=== PATIENT | female | born 1975 | race Caucasian/White ===

== ENCOUNTER 2016-12-25 08:37 | Emergency (ER) | payer MEDICAID ==
[~2016-12-25] VITALS: Ht 167.6 cm; Wt 80.9 kg
[~2016-12-25 08:37] MED LIST: HYDR-3240 PO; HYDR200T PO
[2016-12-25 08:38] VITALS: BP 121/79
[2016-12-25] MEDS ORDERED: HYDROmorphone 1 MG/ML, 1ML IM ONE (09:00)
[2016-12-25] MEDS ORDERED: KETOROLAC 30 MG/1 ML IM ONE (09:00)
[2016-12-25] MEDS ORDERED: DIAZEPAM 5 MG TABLET PO ONE (09:00)
[2016-12-25] MEDS ORDERED: HYDROmorphone 1 MG/ML, 1ML ONE (09:05)
[2016-12-25] MEDS ORDERED: DIAZEPAM 5 MG TABLET ONE (09:05)
[2016-12-25] MEDS ORDERED: KETOROLAC 30 MG/1 ML ONE (09:05)
[2016-12-25] MEDS ORDERED: ALBU0.63 NEB (09:26)
[2016-12-25] MEDS ORDERED: ROPI1TAB PO (09:26)
== END 2016-12-25 10:49 | disposition home or self-care (01) ==
LOC: ED 10:16
DX: M54.16 Radiculopathy, lumbar region (principal); M54.41 Lumbago with sciatica, right side; M06.9 Rheumatoid arthritis, unspecified; Z88.0 Allergy status to penicillin
CPT/HCPCS: 81003; 96372; 99284; J1170; J1885

== ENCOUNTER 2017-01-09 09:05 | Emergency (ER) | payer MEDICAID ==
[~2017-01-09] VITALS: Ht 167.6 cm; Wt 72.4 kg
[~2017-01-09 09:05] MED LIST changes: +ALBU0.63 NEB; +ROPI1TAB PO
[2017-01-09 09:06] VITALS: BP 114/73
[2017-01-09] MEDS ORDERED: KETOROLAC 30 MG/1 ML IM ONE (09:30)
[2017-01-09] MEDS ORDERED: METHOCARBAMOL 750 MG TABLET PO ONE (09:30)
[2017-01-09] MEDS ORDERED: METHOCARBAMOL 750 MG TABLET ONE (09:39)
[2017-01-09] MEDS ORDERED: KETOROLAC 30 MG/1 ML ONE (09:39)
== END 2017-01-09 10:00 | disposition home or self-care (01) ==
LOC: ED 09:45
DX: S51.812D Laceration without foreign body of left forearm, subsequent encounter (principal); Z48.02 Encounter for removal of sutures; Z88.0 Allergy status to penicillin; M54.41 Lumbago with sciatica, right side; M54.16 Radiculopathy, lumbar region; X58.XXXD Exposure to other specified factors, subsequent encounter; Y93.89 Activity, other specified; Y99.8 Other external cause status; Y92.89 Other specified places as the place of occurrence of the external cause
CPT/HCPCS: 96372; 99283; J1885

== ENCOUNTER 2017-05-08 08:24 | Inpatient (IN) | payer MEDICAID ==
[~2017-05-08] VITALS: Ht 167.6 cm; Wt 81.0 kg
[~2017-05-08 08:24] MED LIST changes: +CARI350T PO; +CARI350T14 PO; +CEFT600V IV; +GABA300C10 PO; +MAGN400O7 PO; +OMEP-110 PO; +ONDA4TAB12 PO; +OXYC1TAB9 PO; +OXYC5TAB3 PO; +POLY17PO5 PO; +TRAM50TA2 PO; +metronidazole IV
[2017-05-08] MEDS ORDERED: LORazepam 2 MG/ML, 1ML IM PRN (10:00)
[2017-05-08] MEDS ORDERED: LORazepam 2 MG/ML, 1ML ONE (10:00)
[2017-05-08] MEDS ORDERED: CEFTRIAXONE PMX 1GM/50ML 50 ML ONE (11:24)
[2017-05-08] MEDS ORDERED: ONDANSETRON 2MG/ML, 2ML ONE (11:24)
[2017-05-08] MEDS ORDERED: HYDROmorphone 1 MG/ML, 1ML ONE (11:24)
[2017-05-08] MEDS ORDERED: VANCOMYCIN 1,600 MG in SODIUM CHLORIDE 0.9% 250 ML IV ONE (11:30)
[2017-05-08] MEDS ORDERED: VANCOMYCIN 1,500 MG in SODIUM CHLORIDE 0.9% 250 ML IV ONE (11:30)
[2017-05-08] MEDS ORDERED: CEFTRIAXONE PMX 1GM/50ML 50 ML IV ONE (11:30)
[2017-05-08] MEDS ORDERED: SODIUM CHLORIDE FLUSH 10ML SYR IVF ONE (11:30)
[2017-05-08] MEDS ORDERED: HYDROmorphone 1 MG/ML, 1ML IVPush PRN (11:30)
[2017-05-08] MEDS ORDERED: SODIUM CHLORIDE 0.9% 1,000ML IVBOLUS ONE (11:30)
[2017-05-08] MEDS ORDERED: VANCOMYCIN PER PHARMACY MC ONE (11:30)
[2017-05-08] MEDS ORDERED: ONDANSETRON 2MG/ML, 2ML IVPush ONE (11:30)
[2017-05-08 11:34] LABS: HEMATOCRIT 39.6 % (34.6-47.8); WHITE BLOOD COUNT 5.4 x10^3/uL (3.4-10)
[2017-05-08 11:44] LABS: ASPARTATE AMINO TRANSFERASE 28 U/L (15-37); BLOOD UREA NITROGEN 11 mg/dL (7-18)
[2017-05-08 13:16] VITALS: BP 131/92
[2017-05-08] MEDS ORDERED: SODIUM CHLORIDE 0.9% 1,000 ML IV SCH (13:51)
[2017-05-08] MEDS ORDERED: LORazepam 2 MG/ML, 1ML IVPush PRN (14:00)
[2017-05-08] MEDS ORDERED: morphine SULFATE 10 MG/ML, 1ML IVPush PRN (14:00)
[2017-05-08] MEDS ORDERED: VANCOMYCIN PER PHARMACY MC PRN (14:30)
[2017-05-08] MEDS ORDERED: CEFTAROLINE 600 MG in SODIUM CHLORIDE 0.9% 100 ML IV SCH (14:30)
[2017-05-08 15:09] LABS: DAU SCREEN DISCLAIMER
[2017-05-08] MEDS ORDERED: PHARMACOKINETIC MONITORING MC PRN (15:30)
[2017-05-08] MEDS ORDERED: PHARMACOKINETIC CONSULTATION MC ONE (15:30)
[2017-05-08] MEDS ORDERED: VANCOMYCIN 1,600 MG in SODIUM CHLORIDE 0.9% 250 ML IV SCH ×2 (15:30→23:00)
[2017-05-08] MEDS ORDERED: CEFTRIAXONE PMX 1GM/50ML 50 ML IV SCH (17:00)
== END 2017-05-08 18:05 | disposition left against medical advice (07) | DRG 552 ==
LOC: ED 09:44 → EDIP 11:06 → 3NE 12:48
PROVIDERS: ADMIT Internal Medicine; ATTEND Internal Medicine
DX: M54.9 Dorsalgia, unspecified (principal); M46.26 Osteomyelitis of vertebra, lumbar region; M41.9 Scoliosis, unspecified; F10.10 Alcohol abuse, uncomplicated; F15.90 Other stimulant use, unspecified, uncomplicated; G89.29 Other chronic pain; M06.9 Rheumatoid arthritis, unspecified; M46.40 Discitis, unspecified, site unspecified; M51.34 Other intervertebral disc degeneration, thoracic region; M51.36 Other intervertebral disc degeneration, lumbar region; M79.7 Fibromyalgia; Z79.2 Long term (current) use of antibiotics; Z88.0 Allergy status to penicillin; Z88.8 Allergy status to other drugs, medicaments and biological substances
CPT/HCPCS: 36415; 71010; 72072; 72110; 80053; 80307; 81001; 83605; 84702; 85025; 85651; 86141; 87040; 87086; 96365; 96372; 96375; J0696; J1170; J2405; J3370; G0479; J2060; J7030; J7050

== ENCOUNTER 2018-03-12 09:45 | Inpatient (IN) | payer MEDICAID ==
[~2018-03-12] VITALS: Ht 167.6 cm; Wt 72.5 kg
[~2018-03-12 09:45] MED LIST changes: -HYDR200T PO; +HYDR200T72 PO; +OXYC-432 PO; -OXYC1TAB9 PO
[2018-03-12] MEDS ORDERED: KETOROLAC 30 MG/1 ML ONE (10:19)
[2018-03-12] MEDS ORDERED: METHOCARBAMOL 750 MG TABLET ONE (10:19)
[2018-03-12] MEDS ORDERED: SODIUM CHLORIDE FLUSH 10ML SYR IVF ONE (10:30)
[2018-03-12] MEDS ORDERED: METHOCARBAMOL 750 MG TABLET PO ONE (10:30)
[2018-03-12] MEDS ORDERED: KETOROLAC 30 MG/1 ML IVPush ONE (10:30)
[2018-03-12 10:33] LABS: BASOPHILS # (AUTO) 0.02 x10^3/uL (0-0.1); BASOPHILS % (AUTO) 0 % (0-1); EOSINOPHILS # (AUTO) 0.29 x10^3/uL (0-0.4); EOSINOPHILS % (AUTO) 6 % (1-7); LYMPHOCYTES # (AUTO) 0.92 x10^3/uL (1-3.4); LYMPHOCYTES % (AUTO) 18 % (22-44); MD NO; MEAN CORPUSCULAR HEMOGLOBIN 25.7 pg (27.0-34.8); MEAN CORPUSCULAR HGB CONC 32.9 g/dL (32.4-35.8); MEAN CORPUSCULAR VOLUME 77.9 fL (80-100); MEAN PLATELET VOLUME 7.8 fL (7.4-10.4); MONOCYTES # (AUTO) 0.28 x10^3/uL (0.2-0.8); MONOCYTES % (AUTO) 6 % (2-9); NEUTROPHILS # (AUTO) 3.49 x10^3/uL (1.8-6.8); NEUTROPHILS % (AUTO) 70 % (42-75); PLATELET COUNT 254 x10^3/uL (130-400); RED BLOOD COUNT 4.71 x10^6/uL (3.82-5.3); RED CELL DISTRIBUTION WIDTH 19.3 % (9.6-15.2)
[2018-03-12 10:47] LABS: ALANINE AMINOTRANSFERASE 49 U/L (12-78); ALBUMIN 3.1 g/dL (3.4-5.0); ANION GAP 7 mmol/L (5-15); CALCIUM 8.2 mg/dL (8.5-10.1); CHLORIDE 111 mmol/L (98-107); CREATININE 0.48 mg/dL (0.55-1.02)
[2018-03-12 10:51] LABS: ALKALINE PHOSPHATASE 113 U/L (45-117); BILIRUBIN,TOTAL 0.3 mg/dL (0.2-1.0); TOTAL PROTEIN 6.3 g/dL (6.4-8.2)
[2018-03-12 11:16] LABS: MICROSCOPIC NOT IND
[2018-03-12 11:20] LABS: CULTURE INDICATED? NO
[2018-03-12 11:45] LABS: HCT (SEDRATE) 36.7 % (34.6-47.8)
[2018-03-12] MEDS ORDERED: MORPHINE SULFATE 4 MG/ML, 1ML ONE (11:46)
[2018-03-12] MEDS ORDERED: morphine SULFATE 10 MG/ML, 1ML IVPush ONE (12:00)
[2018-03-12] MEDS ORDERED: GADOBUTROL 7.5 MMOL/7.5 ML PFS ONE (13:27)
[2018-03-12] MEDS ORDERED: LABETALOL 5MG/ML, 20ML IVPush PRN (16:00)
[2018-03-12] MEDS ORDERED: ENALAPRILAT 1.25 MG/ML, 2ML IVPush PRN (16:00)
[2018-03-12] MEDS ORDERED: ACETAMINOPHEN 325 MG TABLET PO PRN (16:00)
[2018-03-12 16:32] VITALS: BP 162/94
[2018-03-12] MEDS: METHOCARBAMOL 750 MG TABLET PO SCH ×2 (18:22→22:43)
[2018-03-12] MEDS: LIDODERM 5% PATCH TD SCH (18:25)
[2018-03-12 18:46] LABS: AMPHETAMINE SCREEN, URINE Positive (Negative); BARBITURATE SCREEN, URINE Negative (Negative); BENZODIAZEPINE SCREEN, URINE Negative (Negative); CANNABINOID SCREEN, URINE Positive (Negative); COCAINE SCREEN, URINE Negative (Negative); METHADONE SCREEN, URINE Negative (Negative); OPIATE SCREEN, URINE Positive (Negative)
[2018-03-12 19:16] VITALS: BP 129/79
[2018-03-12] MEDS: GABAPENTIN 400 MG CAPSULE PO SCH (20:08)
[2018-03-12] MEDS: SODIUM CHLORIDE 0.9% 1,000 ML IV SCH (20:08)
[2018-03-12] MEDS: ONDANSETRON 2MG/ML, 2ML IVPush PRN (20:08)
[2018-03-13] MEDS: ONDANSETRON 2MG/ML, 2ML IVPush PRN ×3 (03:12→17:59)
[2018-03-13] MEDS: KETOROLAC 30 MG/1 ML IVPush PRN ×4 (03:12→22:04)
[2018-03-13 03:15] VITALS: BP 129/89
[2018-03-13 05:09] LABS: BASOPHILS # (AUTO) 0.04 x10^3/uL (0-0.1); BASOPHILS % (AUTO) 1 % (0-1); EOSINOPHILS # (AUTO) 0.33 x10^3/uL (0-0.4); EOSINOPHILS % (AUTO) 7 % (1-7); LYMPHOCYTES # (AUTO) 1.44 x10^3/uL (1-3.4); LYMPHOCYTES % (AUTO) 32 % (22-44); MD NO; MEAN CORPUSCULAR HEMOGLOBIN 26.2 pg (27.0-34.8); MEAN CORPUSCULAR HGB CONC 33.1 g/dL (32.4-35.8); MEAN CORPUSCULAR VOLUME 79.3 fL (80-100); MEAN PLATELET VOLUME 8.4 fL (7.4-10.4); MONOCYTES # (AUTO) 0.36 x10^3/uL (0.2-0.8); MONOCYTES % (AUTO) 8 % (2-9); NEUTROPHILS # (AUTO) 2.41 x10^3/uL (1.8-6.8); NEUTROPHILS % (AUTO) 53 % (42-75); PLATELET COUNT 233 x10^3/uL (130-400); RED BLOOD COUNT 4.27 x10^6/uL (3.82-5.3); RED CELL DISTRIBUTION WIDTH 19.4 % (9.6-15.2)
[2018-03-13 05:15] LABS: ANION GAP 7 mmol/L (5-15); CALCIUM 7.9 mg/dL (8.5-10.1); CHLORIDE 110 mmol/L (98-107); CREATININE 0.47 mg/dL (0.55-1.02)
[2018-03-13] MEDS: GABAPENTIN 400 MG CAPSULE PO SCH ×4 (06:06→21:17)
[2018-03-13] MEDS ORDERED: PNEUMOCOCCAL 23 VACCINE IM-VACC ONE (06:30)
[2018-03-13 07:00] VITALS: BP 128/68
[2018-03-13] MEDS: METHOCARBAMOL 750 MG TABLET PO SCH ×3 (08:11→21:17)
[2018-03-13] MEDS: SODIUM CHLORIDE 0.9% 1,000 ML IV SCH ×2 (08:15→21:20)
[2018-03-13 10:42] VITALS: BP 143/84
[2018-03-13] MEDS ORDERED: MIDAZOLAM 1 MG/ML, 5ML ONE (10:43)
[2018-03-13] MEDS ORDERED: FLUMAZENIL 0.1 MG/1 ML, 5ML ONE (10:43)
[2018-03-13] MEDS ORDERED: NALOXONE 1 MG/ML, 2ML ONE (10:43)
[2018-03-13] MEDS ORDERED: FENTANYL PF 100 MCG/2ML ONE (10:43)
[2018-03-13] MEDS ORDERED: LIDOCAINE-MPF 2% ,5ML ONE (11:10)
[2018-03-13] MEDS ORDERED: CEFTRIAXONE 1,000 MG in SODIUM CHLORIDE 0.9% 50 ML IV SCH (13:00)
[2018-03-13] MEDS ORDERED: VANCOMYCIN PER PHARMACY MC PRN (13:00)
[2018-03-13] MEDS ORDERED: PHARMACOKINETIC CONSULTATION MC ONE (13:30)
[2018-03-13] MEDS ORDERED: ENALAPRILAT 1.25 MG/ML, 2ML IVPush PRN (13:30)
[2018-03-13] MEDS ORDERED: VANCOMYCIN 1,300 MG in SODIUM CHLORIDE 0.9% 250 ML IV SCH (13:30)
[2018-03-13] MEDS ORDERED: PHARMACOKINETIC MONITORING MC PRN (13:30)
[2018-03-13 14:03] VITALS: BP 156/94
[2018-03-13] MEDS: LIDODERM 5% PATCH TD SCH (16:19)
[2018-03-13 21:14] VITALS: BP 134/86
[2018-03-14] MEDS: SODIUM CHLORIDE 0.9% 1,000 ML IV SCH ×2 (01:33→23:14)
[2018-03-14 02:31] VITALS: BP 148/89
[2018-03-14 04:13] VITALS: BP 132/83
[2018-03-14] MEDS: GABAPENTIN 400 MG CAPSULE PO SCH ×4 (04:33→20:55)
[2018-03-14] MEDS: KETOROLAC 30 MG/1 ML IVPush PRN ×4 (04:33→23:14)
[2018-03-14] MEDS: ONDANSETRON 2MG/ML, 2ML IVPush PRN ×4 (04:36→23:14)
[2018-03-14 05:48] LABS: CREATININE 0.44 mg/dL (0.55-1.02)
[2018-03-14 07:10] VITALS: BP 117/89
[2018-03-14] MEDS: METHOCARBAMOL 750 MG TABLET PO SCH ×3 (09:15→20:55)
[2018-03-14 12:34] VITALS: BP 142/94
[2018-03-14 13:30] VITALS: BP 127/85
[2018-03-14] MEDS: LIDODERM 5% PATCH TD SCH (16:29)
[2018-03-14 20:17] VITALS: BP 124/79
[2018-03-15 02:16] VITALS: BP 144/86
[2018-03-15] MEDS: ONDANSETRON 2MG/ML, 2ML IVPush PRN ×5 (04:47→23:14)
[2018-03-15] MEDS: KETOROLAC 30 MG/1 ML IVPush PRN ×4 (04:47→23:14)
[2018-03-15] MEDS: GABAPENTIN 400 MG CAPSULE PO SCH ×4 (04:47→21:22)
[2018-03-15] MEDS: METHOCARBAMOL 750 MG TABLET PO SCH ×3 (05:36→21:22)
[2018-03-15 06:59] VITALS: BP 142/85
[2018-03-15 13:27] VITALS: BP 145/87
[2018-03-15] MEDS: LIDODERM 5% PATCH TD SCH (15:26)
[2018-03-15 19:00] VITALS: BP 145/84
[2018-03-16 01:49] VITALS: BP 136/80
[2018-03-16] MEDS: ONDANSETRON 2MG/ML, 2ML IVPush PRN ×3 (04:56→15:07)
[2018-03-16] MEDS: KETOROLAC 30 MG/1 ML IVPush PRN ×2 (04:56→11:00)
[2018-03-16] MEDS: GABAPENTIN 400 MG CAPSULE PO SCH ×3 (04:56→15:45)
[2018-03-16 06:39] VITALS: BP 143/87
[2018-03-16] MEDS: METHOCARBAMOL 750 MG TABLET PO SCH ×2 (08:55→15:45)
[2018-03-16 13:49] VITALS: BP 130/81
[2018-03-16] MEDS: LIDODERM 5% PATCH TD SCH (15:45)
[2018-03-16] MEDS ORDERED: LIDO700A20 TD (16:27)
[2018-03-16] MEDS ORDERED: METH750T2 PO (16:27)
[2018-03-16] MEDS ORDERED: IBUP-1484 PO (16:27)
[2018-03-16] MEDS ORDERED: ACET325T14 PO (16:27)
[2018-03-16] MEDS ORDERED: IBUPROFEN 200 MG TABLET PO PRN (16:30)
[2018-03-16 17:06] LABS: BASOPHILS # (AUTO) 0.03 x10^3/uL (0-0.1); BASOPHILS % (AUTO) 1 % (0-1); EOSINOPHILS # (AUTO) 0.48 x10^3/uL (0-0.4); EOSINOPHILS % (AUTO) 10 % (1-7); LYMPHOCYTES # (AUTO) 1.38 x10^3/uL (1-3.4); LYMPHOCYTES % (AUTO) 27 % (22-44); MD NO; MEAN CORPUSCULAR HEMOGLOBIN 26.3 pg (27.0-34.8); MEAN CORPUSCULAR HGB CONC 33.5 g/dL (32.4-35.8); MEAN CORPUSCULAR VOLUME 78.5 fL (80-100); MEAN PLATELET VOLUME 7.6 fL (7.4-10.4); MONOCYTES # (AUTO) 0.37 x10^3/uL (0.2-0.8); MONOCYTES % (AUTO) 7 % (2-9); NEUTROPHILS # (AUTO) 2.76 x10^3/uL (1.8-6.8); NEUTROPHILS % (AUTO) 55 % (42-75); PLATELET COUNT 252 x10^3/uL (130-400); RED BLOOD COUNT 4.79 x10^6/uL (3.82-5.3); RED CELL DISTRIBUTION WIDTH 18.7 % (9.6-15.2)
[2018-03-16 17:12] LABS: ANION GAP 4 mmol/L (5-15); CALCIUM 8.8 mg/dL (8.5-10.1); CHLORIDE 102 mmol/L (98-107); CREATININE 0.63 mg/dL (0.55-1.02)
[2018-03-16 17:19] VITALS: BP 155/97
== END 2018-03-16 17:35 | disposition home or self-care (01) | DRG 95 ==
LOC: ED 10:38 → EDIP 15:08 → 4NOR 16:18
PROVIDERS: ADMIT Internal Medicine; ATTEND Internal Medicine
PROC: 0S9 Lower Joints, Drainage (ICD-10-PCS; principal; 2018-03-13)
DX: G06.2 Extradural and subdural abscess, unspecified (principal); M46.26 Osteomyelitis of vertebra, lumbar region; M48.56XA Collapsed vertebra, not elsewhere classified, lumbar region, initial encounter for fracture; E44.0 Moderate protein-calorie malnutrition; M46.46 Discitis, unspecified, lumbar region; F10.10 Alcohol abuse, uncomplicated; F15.90 Other stimulant use, unspecified, uncomplicated; G89.29 Other chronic pain; I10 Essential (primary) hypertension; K21.9 Gastro-esophageal reflux disease without esophagitis; K59.09 Other constipation; M41.9 Scoliosis, unspecified; M43.16 Spondylolisthesis, lumbar region; M48.061 Spinal stenosis, lumbar region without neurogenic claudication; M06.9 Rheumatoid arthritis, unspecified; M79.7 Fibromyalgia; Z79.2 Long term (current) use of antibiotics; Z88.8 Allergy status to other drugs, medicaments and biological substances
CPT/HCPCS: 36415; 62267; 72110; 72158; 72220; 75989; 80048; 80053; 80307; 81003; 82565; 84520; 84702; 85025; 85651; 86140; 87040; 87070; 87075; 87102; 87205; 96374; 96375; 99156; 99157; 99285; A9585; J1885; J2250; J2405; J3010; J3490; J2270; J2310; J7030; Q0177

== ENCOUNTER 2018-12-02 09:59 | Emergency (ER) | payer MEDICAID ==
[~2018-12-02] VITALS: Ht 167.6 cm; Wt 60.0 kg
[~2018-12-02 09:59] MED LIST changes: +ACET325T14 PO; +IBUP-1484 PO; +LIDO700A20 TD; +METH750T2 PO
--- NOTE | 2018-12-02 10:09 | NUR ---
BIB BY GRICEL FOR BILATERAL ANKLE PAIN. ON ARRIVAL PATIENT COVERED IN FOUL SMELLING URINE, PRESSURE ULCER TO SACRUM, ERYTHEMA TO BILATERAL LOWER LEGS. ASKING FOR PAIN MEDICINE BY NAME/DOSE AFEBRILE, HR 115-APPEARS QUITE ANXIOUS-DENIES ILLICITS. REPORTS IMMOBILITY D/T CHRONIC SPINAL INFECTION
[2018-12-02] MEDS ORDERED: SODIUM CHLORIDE 0.9% 1,000ML IVBOLUS ONE (11:00)
[2018-12-02] MEDS ORDERED: SODIUM CHLORIDE FLUSH 10ML SYR IVF ONE (11:00)
[2018-12-02 11:41] LABS: RED BLOOD COUNT 5.19 x10^6/uL (3.82-5.3)
[2018-12-02 11:42] LABS: BASOPHILS # (AUTO) 0.02 x10^3/uL (0-0.1); BASOPHILS % (AUTO) 0 % (0-1); EOSINOPHILS # (AUTO) 0.24 x10^3/uL (0-0.4); EOSINOPHILS % (AUTO) 2 % (1-7); LYMPHOCYTES # (AUTO) 0.82 x10^3/uL (1-3.4); LYMPHOCYTES % (AUTO) 7 % (22-44); MD NO; MEAN CORPUSCULAR HEMOGLOBIN 26.8 pg (27.0-34.8); MEAN CORPUSCULAR HGB CONC 33.5 g/dL (32.4-35.8); MEAN CORPUSCULAR VOLUME 80.2 fL (80-100); MEAN PLATELET VOLUME 7.8 fL (7.4-10.4); MONOCYTES # (AUTO) 0.54 x10^3/uL (0.2-0.8); MONOCYTES % (AUTO) 5 % (2-9); NEUTROPHILS # (AUTO) 9.44 x10^3/uL (1.8-6.8); NEUTROPHILS % (AUTO) 85 % (42-75); PLATELET COUNT 368 x10^3/uL (130-400); RED CELL DISTRIBUTION WIDTH 20.1 % (9.6-15.2)
[2018-12-02] MEDS ORDERED: RIFA300C3 PO (11:48)
[2018-12-02] MEDS ORDERED: SULF1TAB24 PO (11:49)
[2018-12-02 11:53] LABS: ALANINE AMINOTRANSFERASE 117 U/L (12-78); ALBUMIN 2.9 g/dL (3.4-5.0); ANION GAP 14 mmol/L (5-15); CALCIUM 9.6 mg/dL (8.5-10.1); CHLORIDE 107 mmol/L (98-107); CREATININE 0.32 mg/dL (0.55-1.02)
[2018-12-02 11:55] LABS: ALKALINE PHOSPHATASE 144 U/L (45-117); BILIRUBIN,TOTAL 1.8 mg/dL (0.2-1.0)
--- NOTE | 2018-12-02 12:12 | NUR ---
STRAIGHT CATH OBTAINED W/ [address]IGHW[address] SAFETY ENGINEER BY LAURA STEELE [facility] COMPLETED. PATIENT CONTIES TO COMPLAIN OF BILATERAL LEG PAIN-PROVIDER ASKED FOR PRN HR 80-90 W/ 500ML INFUSED THUS FAR, B/P / CALL FRANK W/IN REACH/SIDE RAILS UP. TURNED TO LEFT SIDE OFF SACRUM UPDATED ON ESTIMATED POC
[2018-12-02 12:24] LABS: MICROSCOPIC INDICATED
[2018-12-02 12:36] LABS: AMPHETAMINE SCREEN, URINE Positive (Negative); BARBITURATE SCREEN, URINE Negative (Negative); BENZODIAZEPINE SCREEN, URINE Negative (Negative); CANNABINOID SCREEN, URINE Positive (Negative); COCAINE SCREEN, URINE Negative (Negative); METHADONE SCREEN, URINE Negative (Negative); OPIATE SCREEN, URINE Negative (Negative)
[2018-12-02 12:42] LABS: CULTURE INDICATED? YES
[2018-12-02] MEDS ORDERED: CEFTRIAXONE PMX 1GM/50ML 50 ML IVPB ONE (13:00)
[2018-12-02] MEDS ORDERED: CEFTRIAXONE PMX 1GM/50ML 50 ML ONE (13:47)
--- NOTE | 2018-12-02 13:50 | NUR ---
UPDATED ON POC HELPED TURN TO RIGHT SIDE (OFF LOAD SACRUM) GIVEN ADDITIONAL WATER/CRACKERS CALL MARIE IN HAND/SIDE RAILS UP
--- NOTE | 2018-12-02 13:50 | NUR ---
ROCEPHIN INFUSING WITH D/C ORDER HEAD OF INTEGRATED MEDIA WORKING W/ PATIENT/THROUGHPUT RN TO ORGANIZE RIDE HOME. NOT ASNWERING CELL PHONE/OR LANDLINE SO THROUGHPUT ASKED TO ARRANGE TRANSPORT PATIENT UNABLE TO AMBULATE
--- NOTE | 2018-12-02 14:45 | NUR ---
PATIENT PROVIDED WITH SNACKS/WATER/TURNED TO LEFT SIDE. REPORTEDLY ON HIS WAY TO PICK PATIENT UP SACRAL WOUND CLEANSED W/ WOUND CLEANSER. ENCOURAGED TO INCREASE MOBILITY TO LIMITED WOUND PROGRESSION
--- NOTE | 2018-12-02 15:50 | NUR ---
RE-CALLED. REPORTEDLY MOMENTS AWAY. MEDI-EXPRESS APPOITMENT KEP IN CASE. NO COMPLAINTS AT THIS TIME CALL MARIE IN HAND/SIE RAILS UP
--- NOTE | 2018-12-02 16:20 | NUR ---
PATIENT HELPED CHANGE (OFFERED LIMITED HELP). WAS ABLE TO STAND AND PIVOT TO WHEELCHAIR
[2018-12-02 16:32] VITALS: BP 137/72
== END 2018-12-02 16:35 | disposition home or self-care (01) ==
LOC: ED 11:13
DX: N30.00 Acute cystitis without hematuria (principal); I10 Essential (primary) hypertension; M06.9 Rheumatoid arthritis, unspecified; I95.9 Hypotension, unspecified
CPT/HCPCS: 36415; 71045; 80053; 80307; 81001; 83605; 84145; 85025; 87040; 87077; 87086; 96361; 96374; 99284; J0696; J7030; 87186

== ENCOUNTER 2018-12-05 19:46 | Inpatient (IN) | payer MEDICAID ==
[~2018-12-05] VITALS: Ht 167.6 cm; Wt 64.5 kg
[~2018-12-05 19:46] MED LIST changes: +RIFA300C3 PO; +SULF1TAB24 PO
[2018-12-05 20:41] LABS: BASOPHILS # (AUTO) 0.04 x10^3/uL (0-0.1); BASOPHILS % (AUTO) 1 % (0-1); EOSINOPHILS # (AUTO) 0.63 x10^3/uL (0-0.4); EOSINOPHILS % (AUTO) 10 % (1-7); LYMPHOCYTES # (AUTO) 1.29 x10^3/uL (1-3.4); LYMPHOCYTES % (AUTO) 19 % (22-44); MD NO; MEAN CORPUSCULAR HEMOGLOBIN 26.9 pg (27.0-34.8); MEAN CORPUSCULAR HGB CONC 33.6 g/dL (32.4-35.8); MEAN CORPUSCULAR VOLUME 80.1 fL (80-100); MEAN PLATELET VOLUME 7.3 fL (7.4-10.4); MONOCYTES # (AUTO) 0.42 x10^3/uL (0.2-0.8); MONOCYTES % (AUTO) 6 % (2-9); NEUTROPHILS # (AUTO) 4.23 x10^3/uL (1.8-6.8); NEUTROPHILS % (AUTO) 64 % (42-75); PLATELET COUNT 394 x10^3/uL (130-400); RED BLOOD COUNT 5.37 x10^6/uL (3.82-5.3); RED CELL DISTRIBUTION WIDTH 19.7 % (9.6-15.2)
[2018-12-05 20:52] LABS: ALBUMIN 3.1 g/dL (3.4-5.0); ANION GAP 8 mmol/L (5-15); CHLORIDE 109 mmol/L (98-107)
[2018-12-05 20:55] LABS: ALANINE AMINOTRANSFERASE 56 U/L (12-78); ALKALINE PHOSPHATASE 143 U/L (45-117); BILIRUBIN,TOTAL 1.4 mg/dL (0.2-1.0); CREATININE 0.53 mg/dL (0.55-1.02); TOTAL PROTEIN 7.3 g/dL (6.4-8.2)
--- NOTE | 2018-12-05 21:17 | NUR ---
pt to room from lobby
[2018-12-05] MEDS ORDERED: ERTAPENEM 1 GM IM ONE (21:30)
--- NOTE | 2018-12-05 21:48 | NUR ---
Cultures to be drawn, will hang abx when cultures drawn
[2018-12-05] MEDS ORDERED: MORPHINE SULFATE 4 MG/ML, 1ML IVPush PRN (22:00)
[2018-12-05] MEDS ORDERED: ONDANSETRON 2MG/ML, 2ML IVPush ONE (22:00)
[2018-12-05] MEDS ORDERED: POTASSIUM CHLORIDE 20 MEQ TAB.ER.PRT PO ONE (22:00)
[2018-12-05] MEDS ORDERED: ONDANSETRON 2MG/ML, 2ML ONE (22:03)
[2018-12-05] MEDS ORDERED: POTASSIUM CHLORIDE 20 MEQ TAB.ER.PRT ONE (22:04)
[2018-12-05] MEDS ORDERED: MORPHINE SULFATE 4 MG/ML, 1ML ONE (22:04)
[2018-12-05] MEDS: ERTAPENEM 1 GM in SODIUM CHLORIDE 0.9% 50 ML IV SCH (22:29)
[2018-12-05] MEDS ORDERED: POLYETHYLENE GLYCOL 17 GM PACKET PO PRN (22:30)
[2018-12-05] MEDS ORDERED: hydrALAzine 20 MG/ML, 1ML IVPush PRN (22:30)
[2018-12-05] MEDS ORDERED: ACETAMINOPHEN 325 MG TABLET PO PRN (22:30)
[2018-12-05] MEDS ORDERED: MAGNESIUM HYDROXIDE 8%, 30ML UDC PO PRN (22:30)
[2018-12-05] MEDS ORDERED: ENOXAPARIN 40 MG/0.4 ML SQ SCH (22:30)
--- NOTE | 2018-12-05 22:36 | NUR ---
Report to Nacho STEELE, cultures drawn x2, abx infusing.
--- NOTE | 2018-12-05 22:54 | NUR ---
abx infusing to floor
[2018-12-05 23:04] VITALS: BP 97/62
[2018-12-06] MEDS: NS + 20MEQ KCL 1,000 ML IV SCH ×3 (00:24→18:01)
[2018-12-06] MEDS: OXYcodone IR 5MG TABLET PO PRN ×4 (00:24→21:54)
[2018-12-06 03:24] VITALS: BP 104/74
[2018-12-06 05:32] LABS: BASOPHILS # (AUTO) 0.03 x10^3/uL (0-0.1); BASOPHILS % (AUTO) 1 % (0-1); EOSINOPHILS # (AUTO) 0.66 x10^3/uL (0-0.4); EOSINOPHILS % (AUTO) 12 % (1-7); LYMPHOCYTES # (AUTO) 1.14 x10^3/uL (1-3.4); LYMPHOCYTES % (AUTO) 21 % (22-44); MD NO; MEAN CORPUSCULAR HEMOGLOBIN 26.9 pg (27.0-34.8); MEAN CORPUSCULAR HGB CONC 33.6 g/dL (32.4-35.8); MEAN CORPUSCULAR VOLUME 80.2 fL (80-100); MEAN PLATELET VOLUME 7.3 fL (7.4-10.4); MONOCYTES % (AUTO) 8 % (2-9); NEUTROPHILS # (AUTO) 3.13 x10^3/uL (1.8-6.8); NEUTROPHILS % (AUTO) 58 % (42-75); PLATELET COUNT 326 x10^3/uL (130-400); RED BLOOD COUNT 4.64 x10^6/uL (3.82-5.3); RED CELL DISTRIBUTION WIDTH 19.6 % (9.6-15.2)
[2018-12-06 05:43] LABS: CHLORIDE 116 mmol/L (98-107)
[2018-12-06 05:54] LABS: ALANINE AMINOTRANSFERASE 39 U/L (12-78); ALBUMIN 2.5 g/dL (3.4-5.0); ALKALINE PHOSPHATASE 113 U/L (45-117); ANION GAP 7 mmol/L (5-15); BILIRUBIN,TOTAL 0.8 mg/dL (0.2-1.0); CALCIUM 8.3 mg/dL (8.5-10.1); CREATININE 0.32 mg/dL (0.55-1.02); TOTAL PROTEIN 5.9 g/dL (6.4-8.2)
[2018-12-06 07:12] VITALS: BP 122/85
[2018-12-06] MEDS ORDERED: POTASSIUM CHLORIDE 20 MEQ TAB.ER.PRT PO ONE (08:00)
[2018-12-06] MEDS: OMEPRAZOLE 20 MG CAPSULE.DR PO SCH ×2 (08:06→21:54)
[2018-12-06] MEDS: ONDANSETRON 2MG/ML, 2ML IVPush PRN ×2 (08:06→17:42)
[2018-12-06] MEDS: METHOCARBAMOL 750 MG TABLET PO SCH ×3 (08:06→21:54)
[2018-12-06] MEDS: RIFAMPIN 300 MG CAPSULE PO SCH ×2 (08:06→21:54)
[2018-12-06] MEDS: GABAPENTIN 300 MG CAPSULE PO SCH ×3 (08:06→21:54)
[2018-12-06] MEDS ORDERED: MAGNESIUM SULFATE PMX 2GM/50ML 50 ML IV ONE (09:00)
[2018-12-06 14:13] VITALS: BP 102/69
[2018-12-06 20:14] VITALS: BP 127/84
[2018-12-07] MEDS: ERTAPENEM 1 GM in SODIUM CHLORIDE 0.9% 50 ML IV SCH (01:41)
[2018-12-07] MEDS: OXYcodone IR 5MG TABLET PO PRN ×4 (04:14→18:05)
[2018-12-07 04:19] VITALS: BP 130/85
[2018-12-07] MEDS: ONDANSETRON 2MG/ML, 2ML IVPush PRN ×2 (04:49→11:24)
[2018-12-07] MEDS: NS + 20MEQ KCL 1,000 ML IV SCH ×2 (04:49→13:18)
[2018-12-07 05:45] LABS: BASOPHILS # (AUTO) 0.07 x10^3/uL (0-0.1); BASOPHILS % (AUTO) 1 % (0-1); EOSINOPHILS % (AUTO) 14 % (1-7); LYMPHOCYTES % (AUTO) 23 % (22-44); MD NO; MEAN CORPUSCULAR HGB CONC 33.6 g/dL (32.4-35.8); MEAN CORPUSCULAR VOLUME 80.3 fL (80-100); MEAN PLATELET VOLUME 7.2 fL (7.4-10.4); MONOCYTES # (AUTO) 0.32 x10^3/uL (0.2-0.8); MONOCYTES % (AUTO) 6 % (2-9); NEUTROPHILS # (AUTO) 2.93 x10^3/uL (1.8-6.8); NEUTROPHILS % (AUTO) 56 % (42-75); PLATELET COUNT 354 x10^3/uL (130-400); RED BLOOD COUNT 4.57 x10^6/uL (3.82-5.3); RED CELL DISTRIBUTION WIDTH 19.7 % (9.6-15.2)
[2018-12-07 05:49] LABS: ANION GAP 6 mmol/L (5-15); CALCIUM 8.1 mg/dL (8.5-10.1); CHLORIDE 117 mmol/L (98-107)
[2018-12-07 05:50] LABS: CREATININE 0.29 mg/dL (0.55-1.02)
[2018-12-07 07:58] VITALS: BP 136/78
[2018-12-07] MEDS: METHOCARBAMOL 750 MG TABLET PO SCH ×3 (08:50→20:34)
[2018-12-07] MEDS: OMEPRAZOLE 20 MG CAPSULE.DR PO SCH ×2 (08:51→20:34)
[2018-12-07] MEDS: RIFAMPIN 300 MG CAPSULE PO SCH ×2 (08:51→20:34)
[2018-12-07] MEDS: GABAPENTIN 300 MG CAPSULE PO SCH ×3 (08:51→20:34)
[2018-12-07 13:04] VITALS: BP 135/89
[2018-12-07 20:00] VITALS: BP 137/87
[2018-12-08] MEDS: ERTAPENEM 1 GM in SODIUM CHLORIDE 0.9% 50 ML IV SCH (01:02)
[2018-12-08] MEDS: OXYcodone IR 5MG TABLET PO PRN ×5 (01:02→20:21)
[2018-12-08] MEDS: ONDANSETRON 2MG/ML, 2ML IVPush PRN ×3 (01:09→13:17)
[2018-12-08 03:08] VITALS: BP 135/86
[2018-12-08 06:39] LABS: BASOPHILS # (AUTO) 0.04 x10^3/uL (0-0.1); BASOPHILS % (AUTO) 1 % (0-1); EOSINOPHILS # (AUTO) 0.65 x10^3/uL (0-0.4); EOSINOPHILS % (AUTO) 11 % (1-7); LYMPHOCYTES # (AUTO) 1.23 x10^3/uL (1-3.4); LYMPHOCYTES % (AUTO) 22 % (22-44); MD NO; MEAN CORPUSCULAR HGB CONC 33.8 g/dL (32.4-35.8); MEAN CORPUSCULAR VOLUME 79.7 fL (80-100); MEAN PLATELET VOLUME 7.3 fL (7.4-10.4); MONOCYTES # (AUTO) 0.32 x10^3/uL (0.2-0.8); MONOCYTES % (AUTO) 6 % (2-9); NEUTROPHILS # (AUTO) 3.43 x10^3/uL (1.8-6.8); NEUTROPHILS % (AUTO) 61 % (42-75); PLATELET COUNT 349 x10^3/uL (130-400); RED BLOOD COUNT 4.67 x10^6/uL (3.82-5.3); RED CELL DISTRIBUTION WIDTH 19.4 % (9.6-15.2)
[2018-12-08 06:44] LABS: CHLORIDE 113 mmol/L (98-107)
[2018-12-08 06:52] LABS: ANION GAP 5 mmol/L (5-15); CALCIUM 8.3 mg/dL (8.5-10.1); CREATININE 0.34 mg/dL (0.55-1.02)
[2018-12-08] MEDS: GABAPENTIN 300 MG CAPSULE PO SCH ×3 (09:05→20:20)
[2018-12-08] MEDS: LACTOBACILLUS CHEW TABLET PO SCH ×3 (09:05→20:20)
[2018-12-08] MEDS: OMEPRAZOLE 20 MG CAPSULE.DR PO SCH ×2 (09:06→20:21)
[2018-12-08] MEDS: RIFAMPIN 300 MG CAPSULE PO SCH ×2 (09:06→20:21)
[2018-12-08] MEDS: ENOXAPARIN 40 MG/0.4 ML SQ SCH (09:06)
[2018-12-08] MEDS: METHOCARBAMOL 750 MG TABLET PO SCH ×3 (09:06→20:21)
[2018-12-08 09:28] VITALS: BP 134/100
[2018-12-08 12:51] VITALS: BP 145/100
[2018-12-08] MEDS: ACETAMINOPHEN 325 MG TABLET PO PRN (12:58)
[2018-12-08] MEDS ORDERED: SODIUM CHLORIDE NASAL SPRAY 45ML BOTTLE NAS PRN (13:00)
[2018-12-08 21:36] VITALS: BP_SYST 168; BP_SYST 175; BP_DIAS 103; BP_DIAS 104
[2018-12-09 02:31] VITALS: BP 148/103
[2018-12-09] MEDS: OXYcodone IR 5MG TABLET PO PRN ×4 (02:41→21:43)
[2018-12-09] MEDS: ONDANSETRON 2MG/ML, 2ML IVPush PRN ×4 (03:07→21:44)
[2018-12-09] MEDS: ACETAMINOPHEN 325 MG TABLET PO PRN (06:37)
[2018-12-09] MEDS: METHOCARBAMOL 750 MG TABLET PO SCH ×4 (07:46→20:38)
[2018-12-09] MEDS: OMEPRAZOLE 20 MG CAPSULE.DR PO SCH ×2 (07:47→20:38)
[2018-12-09] MEDS: RIFAMPIN 300 MG CAPSULE PO SCH ×2 (07:47→20:36)
[2018-12-09] MEDS: LACTOBACILLUS CHEW TABLET PO SCH ×3 (07:47→20:38)
[2018-12-09] MEDS: GABAPENTIN 300 MG CAPSULE PO SCH ×3 (07:47→20:38)
[2018-12-09] MEDS: ENOXAPARIN 40 MG/0.4 ML SQ SCH (07:47)
[2018-12-09] MEDS ORDERED: MAGNESIUM CITRATE 300ML ORAL SOL PO ONE (08:00)
[2018-12-09 08:59] VITALS: BP 139/98
[2018-12-09] MEDS: BISACODYL 10 MG SUPP PR SCH (09:00)
[2018-12-09 15:32] VITALS: BP 131/88
[2018-12-09 21:00] VITALS: BP 122/84
[2018-12-09] MEDS: METHOCARBAMOL 500 MG TABLET PO SCH (21:00)
[2018-12-10 02:26] VITALS: BP 135/77
[2018-12-10] MEDS: OXYcodone IR 5MG TABLET PO PRN ×2 (06:13→18:00)
[2018-12-10] MEDS: ONDANSETRON 2MG/ML, 2ML IVPush PRN ×3 (06:30→21:12)
[2018-12-10] MEDS ORDERED: OXYcodone IR 5MG TABLET PO PRN (08:00)
[2018-12-10] MEDS ORDERED: METHYLNALTREXONE 12 MG/0.6 ML SQ ONE (08:00)
[2018-12-10 08:31] VITALS: BP 137/93
[2018-12-10 08:45] LABS: HCG UR SG 1.007 (1.003-1.030)
[2018-12-10] MEDS: BISACODYL 10 MG SUPP PR SCH ×2 (09:00→22:24)
[2018-12-10] MEDS: ENOXAPARIN 40 MG/0.4 ML SQ SCH (09:14)
[2018-12-10] MEDS: METHOCARBAMOL 500 MG TABLET PO SCH ×3 (09:14→22:31)
[2018-12-10] MEDS: LACTOBACILLUS CHEW TABLET PO SCH ×3 (09:14→22:32)
[2018-12-10] MEDS: OMEPRAZOLE 20 MG CAPSULE.DR PO SCH ×2 (09:14→21:11)
[2018-12-10] MEDS: GABAPENTIN 300 MG CAPSULE PO SCH ×3 (09:14→22:32)
[2018-12-10] MEDS: RIFAMPIN 300 MG CAPSULE PO SCH ×2 (09:14→21:11)
[2018-12-10] MEDS: ACETAMINOPHEN 325 MG TABLET PO PRN (11:50)
[2018-12-10 15:14] VITALS: BP 144/100
[2018-12-10 19:41] VITALS: BP 151/97
[2018-12-10 20:10] VITALS: BP 119/88
[2018-12-11] MEDS: OXYcodone IR 5MG TABLET PO PRN ×5 (00:03→23:48)
[2018-12-11 01:45] VITALS: BP 129/88
[2018-12-11 03:28] VITALS: BP 118/75
[2018-12-11] MEDS: ONDANSETRON 2MG/ML, 2ML IVPush PRN ×3 (03:34→15:59)
[2018-12-11 08:49] VITALS: BP 111/85
[2018-12-11] MEDS: ENOXAPARIN 40 MG/0.4 ML SQ SCH (08:51)
[2018-12-11] MEDS: METHOCARBAMOL 500 MG TABLET PO SCH ×3 (08:52→20:53)
[2018-12-11] MEDS: GABAPENTIN 300 MG CAPSULE PO SCH ×3 (08:52→20:53)
[2018-12-11] MEDS: RIFAMPIN 300 MG CAPSULE PO SCH (08:52)
[2018-12-11] MEDS: OMEPRAZOLE 20 MG CAPSULE.DR PO SCH ×2 (08:52→20:53)
[2018-12-11] MEDS: LACTOBACILLUS CHEW TABLET PO SCH ×3 (08:52→20:53)
[2018-12-11 13:04] VITALS: BP 104/59
[2018-12-11 19:09] VITALS: BP 122/79
[2018-12-11] MEDS: SULFAMETH./TRIMETHOPRIM DS 800MG/160MG TABLET PO SCH (20:53)
[2018-12-12 03:11] VITALS: BP 101/71
[2018-12-12 06:25] LABS: CREATININE 0.35 mg/dL (0.55-1.02)
[2018-12-12] MEDS: OXYcodone IR 5MG TABLET PO PRN ×2 (06:25→12:18)
[2018-12-12 07:08] VITALS: BP 145/53
[2018-12-12] MEDS: LACTOBACILLUS CHEW TABLET PO SCH (08:12)
[2018-12-12] MEDS: METHOCARBAMOL 500 MG TABLET PO SCH (08:12)
[2018-12-12] MEDS: SULFAMETH./TRIMETHOPRIM DS 800MG/160MG TABLET PO SCH (08:12)
[2018-12-12] MEDS: GABAPENTIN 300 MG CAPSULE PO SCH (08:12)
[2018-12-12] MEDS: OMEPRAZOLE 20 MG CAPSULE.DR PO SCH (08:12)
[2018-12-12] MEDS: BISACODYL 10 MG SUPP PR SCH (08:17)
[2018-12-12] MEDS: ENOXAPARIN 40 MG/0.4 ML SQ SCH (08:17)
[2018-12-12] MEDS: ONDANSETRON 2MG/ML, 2ML IVPush PRN (08:29)
[2018-12-12] MEDS ORDERED: OXYC5TAB3 PO (11:44)
[2018-12-12] MEDS ORDERED: TRAM50TA2 PO (11:44)
[2018-12-12 12:26] VITALS: BP 113/81
== END 2018-12-12 13:01 | disposition home health service (06) | DRG 872 ==
LOC: ED 21:47 → EDIP 21:48 → 4NOR 22:58
PROVIDERS: ADMIT Family Medicine; ATTEND Family Medicine
DX: A41.51 Sepsis due to Escherichia coli [E. coli] (principal); N39.0 Urinary tract infection, site not specified; M46.26 Osteomyelitis of vertebra, lumbar region; E83.42 Hypomagnesemia; E87.6 Hypokalemia; F15.10 Other stimulant abuse, uncomplicated; L89.301 Pressure ulcer of unspecified buttock, stage 1; G89.29 Other chronic pain; I10 Essential (primary) hypertension; K59.00 Constipation, unspecified; M06.9 Rheumatoid arthritis, unspecified; L89.152 Pressure ulcer of sacral region, stage 2; M79.7 Fibromyalgia; R32 Unspecified urinary incontinence; Z74.01 Bed confinement status; Z86.61 Personal history of infections of the central nervous system; Z98.1 Arthrodesis status
CPT/HCPCS: 36415; 80048; 80053; 81025; 82565; 83605; 83690; 83735; 84145; 85025; 87040; 96374; 99285; G0378; J1335; J1650; J2405; J3480; J3475

== ENCOUNTER 2019-07-16 20:18 | Inpatient (IN) | payer MEDICAID ==
[~2019-07-16] VITALS: Ht 167.6 cm; Wt 73.9 kg
[~2019-07-16 20:18] MED LIST changes: +ASPI-515 PO; +CEFA2SYR4 IV; +CEPH-368 PO; +ETOMIDATE 40 MG/20 ML ONE; -IBUP-1484 PO; +IBUP-1902 PO; +PROPOFOL 10 MG/ML, 100ML IV ONE; +TRAZ50TA66 PO; +VECURONIUM 10 MG ONE
[2019-07-16] MEDS ORDERED: ALBUTEROL/IPRATROPIUM 2.5MG/0.5MG, 3 ML ONE (20:22)
--- NOTE | 2019-07-16 20:40 | NUR ---
PT. MOVED TO TRAUMA 4 FOR INTUBATION, REPORT TO IVETTE ORELLANA TO ASSUME CARE.
[2019-07-16 20:58] LABS: MEAN CORPUSCULAR HEMOGLOBIN 26.2 pg (27.0-34.8); MEAN CORPUSCULAR HGB CONC 32.7 g/dL (32.4-35.8); MEAN CORPUSCULAR VOLUME 80.2 fL (80-100); MEAN PLATELET VOLUME 8.5 fL (7.4-10.4); PLATELET COUNT 375 x10^3/uL (130-400); RED BLOOD COUNT 5.84 x10^6/uL (3.82-5.3); RED CELL DISTRIBUTION WIDTH 17.3 % (9.6-15.2)
[2019-07-16] MEDS ORDERED: ETOMIDATE 20 MG/10 ML IVPush ONE (21:00)
[2019-07-16] MEDS ORDERED: PROPOFOL 100 ML IV PRN ×2 (21:00→23:49)
[2019-07-16] MEDS ORDERED: VECURONIUM 10 MG IVPush ONE (21:00)
[2019-07-16 21:03] LABS: ALANINE AMINOTRANSFERASE 30 U/L (12-78); ALBUMIN 2.7 g/dL (3.4-5.0); ANION GAP 10 mmol/L (5-15); CALCIUM 8.4 mg/dL (8.5-10.1); CHLORIDE 108 mmol/L (98-107); CREATININE 0.73 mg/dL (0.55-1.02)
[2019-07-16 21:07] LABS: ALKALINE PHOSPHATASE 175 U/L (45-117); BILIRUBIN,TOTAL 1.7 mg/dL (0.2-1.0); TOTAL PROTEIN 7.9 g/dL (6.4-8.2); TROPONIN I 0.071 ng/mL (0.000-0.045)
[2019-07-16 21:26] LABS: MD YES
[2019-07-16 21:30] LABS: BAND#(MANUAL) 3.42 x10^3/uL; BANDS%(MANUAL) 20 % (0-7); LYMPH#(MANUAL) 0.68 x10^3/uL (1-3.4); LYMPHS% (MANUAL) 4 % (22-44); MONOS#(MANUAL) 0.34 x10^3/uL (0.3-2.7); MONOS% (MANUAL) 2 % (2-9); SEG#(MANUAL) 12.65 x10^3/uL (1.8-6.8); SEGS% (MANUAL) 74 % (42-75)
[2019-07-16] MEDS ORDERED: SODIUM CHLORIDE 0.9% 1,000ML IVBOLUS ONE (21:30)
[2019-07-16] MEDS ORDERED: CEFEPIME 1 GM in DEXTROSE 5% 50 ML IV ONE (21:30)
[2019-07-16] MEDS ORDERED: VANCOMYCIN 1,200 MG in SODIUM CHLORIDE 0.9% 250 ML IV ONE (21:30)
[2019-07-16] MEDS ORDERED: POTASSIUM CHLORIDE 40 MEQ in SODIUM CHLORIDE 0.9% 500 ML IV ONE (21:30)
[2019-07-16] MEDS ORDERED: VANCOMYCIN PER PHARMACY MC PRN ×2 (21:30→22:00)
[2019-07-16 21:31] LABS: <PLATELET ESTIMATE> ADEQUATE; <PLT MORPHOLOGY> NORMAL PLT MORPH; ANISOCYTOSIS 1+
[2019-07-16 21:35] LABS: CULTURE INDICATED? YES; MICROSCOPIC INDICATED
--- NOTE | 2019-07-16 21:37 | NUR ---
warming measures applied
--- NOTE | 2019-07-16 21:49 | NUR ---
DUE TO LACK OF LINES PHARMACY WAS CALLED. PER PHARM VANCO AND POTASSIUM ARE Y SITE COMPATIBLE.
--- NOTE | 2019-07-16 21:54 | NUR ---
AT BEDSIDE FOR CENTRAL LINE PLACEMENT
[2019-07-16] MEDS ORDERED: DEXTROSE 50%, 50ML SYRINGE IVPush PRN (22:00)
[2019-07-16] MEDS ORDERED: GLUCAGON 1 MG IM PRN (22:00)
[2019-07-16] MEDS ORDERED: BISACODYL 10 MG SUPP PR PRN (22:00)
[2019-07-16] MEDS ORDERED: DEXTROSE 4 GM TAB.CHEW PO PRN (22:00)
[2019-07-16] MEDS ORDERED: LIDOCAINE-MPF 1%, 2ML ENDO PRN (22:00)
[2019-07-16] MEDS ORDERED: PHARMACY MAY ADJ FOR RENAL FX MC SCH (22:00)
[2019-07-16] MEDS ORDERED: SENNA 176 MG/5 ML ORAL SOL NG PRN (22:00)
[2019-07-16 22:06] LABS: AMPHETAMINE SCREEN, URINE Positive (Negative); BARBITURATE SCREEN, URINE Negative (Negative); BENZODIAZEPINE SCREEN, URINE Positive (Negative); CANNABINOID SCREEN, URINE Positive (Negative); COCAINE SCREEN, URINE Negative (Negative); METHADONE SCREEN, URINE Negative (Negative); OPIATE SCREEN, URINE Negative (Negative)
--- NOTE | 2019-07-16 22:52 | NUR ---
REPORT GIVEN TO MO CCU RN
--- NOTE | 2019-07-16 23:31 | NUR ---
LATE ENTRY: PT WITH FECES TO BUTTOCK AND LEGS. WHILST CLEANING PT IT WAS NOTED PT HAS A POSSIBLE STAGE 2 PRESSURE ULCER TO HER COCCYX AREA. ER MD WAS NOTIFIED. CLINICAL PARTNER NOTIFIED. ER WOUND CAMERA NOT WORKING. THIS WAS REPORTED TO RECEIVING CCU RN. WILL PLACE WOUND CARE CONSULT PER PROTOCOL.
[2019-07-17] MEDS ORDERED: PHARMACY MAY ADJ FOR RENAL FX MC SCH
[2019-07-17] MEDS ORDERED: LIDOCAINE-MPF 1%, 2ML ENDO PRN
[2019-07-17 01:00] VITALS: BP 87/59
[2019-07-17] MEDS: SODIUM CHLORIDE 0.9% 1,000 ML IV SCH ×2 (02:19→11:04)
[2019-07-17] MEDS: FAMOTIDINE 20 MG/2 ML IV SCH ×2 (02:19→14:32)
[2019-07-17] MEDS: HEPARIN 5,000 UNITS/ML, 1ML SQ SCH ×3 (02:19→18:03)
[2019-07-17] MEDS ORDERED: SODIUM CHLORIDE 0.9% 1,000ML IVBOLUS ONE (02:30)
[2019-07-17] MEDS ORDERED: NOREPINEPHRINE 4 MG in SODIUM CHLORIDE 0.9% 246 ML IV PRN (02:30)
[2019-07-17 03:26] VITALS: BP 124/80
[2019-07-17 04:00] VITALS: BP 102/48
[2019-07-17] MEDS: FENTANYL PF 100 MCG/2ML IVPush PRN ×2 (04:46→06:08)
[2019-07-17 04:58] LABS: CALCIUM 6.8 mg/dL (8.5-10.1); CHLORIDE 121 mmol/L (98-107); CREATININE 0.35 mg/dL (0.55-1.02)
[2019-07-17] MEDS ORDERED: PHARMACOKINETIC MONITORING MC PRN (05:00)
[2019-07-17] MEDS ORDERED: PHARMACOKINETIC CONSULTATION MC ONE (05:00)
[2019-07-17 05:11] LABS: ANION GAP 7 mmol/L (5-15)
[2019-07-17 05:30] LABS: MEAN CORPUSCULAR HEMOGLOBIN 26.1 pg (27.0-34.8); MEAN CORPUSCULAR HGB CONC 33.2 g/dL (32.4-35.8); MEAN CORPUSCULAR VOLUME 78.6 fL (80-100); PLATELET COUNT 234 x10^3/uL (130-400); RED BLOOD COUNT 4.61 x10^6/uL (3.82-5.3); RED CELL DISTRIBUTION WIDTH 17.4 % (9.6-15.2)
[2019-07-17] MEDS ORDERED: POTASSIUM CHLORIDE 40 MEQ in SODIUM CHLORIDE 0.9% 100 ML IV ONE (05:30)
[2019-07-17] MEDS ORDERED: MAGNESIUM SULFATE PMX 4GM/100M 100 ML IV ONE (05:30)
[2019-07-17 05:55] LABS: MD YES
[2019-07-17 06:01] LABS: <PLATELET ESTIMATE> ADEQUATE; <PLT MORPHOLOGY> NORMAL PLT MORPH; ANISOCYTOSIS 1+; BAND#(MANUAL) 2.08 x10^3/uL; BANDS%(MANUAL) 26 % (0-7); LYMPHS% (MANUAL) 5 % (22-44); METAMYELOCYTES# (MANUAL) 0.08 x10^3/uL (0-0); METAMYELOCYTES% (MANUAL) 1 % (0-1); MICROCYTOSIS 1+; MONOS#(MANUAL) 0.08 x10^3/uL (0.3-2.7); MONOS% (MANUAL) 1 % (2-9); NRBC % (MANUAL) 1 % (0-1); SEG#(MANUAL) 5.36 x10^3/uL (1.8-6.8); SEGS% (MANUAL) 67 % (42-75); TOXIC GRAN 1+
[2019-07-17] MEDS ORDERED: OMNIPAQUE 350 MG/ML, 100ML BOTTLE ONE (06:17)
[2019-07-17] MEDS ORDERED: CALCIUM CHLORIDE 13.6 MEQ in SODIUM CHLORIDE 0.9% 100 ML IV ONE (07:00)
[2019-07-17] MEDS: INSULIN LISPRO 100 UNITS/ML, PEN SQ-INSULIN SCH ×4 (07:00→21:57)
[2019-07-17] MEDS: SODIUM CHLORIDE FLUSH 10ML SYR IVF SCH ×2 (09:00→21:55)
[2019-07-17] MEDS: CEFEPIME 1 GM in DEXTROSE 5% 50 ML IV SCH ×2 (09:00→21:54)
[2019-07-17] MEDS ORDERED: ALBUMIN HUMAN 25% 100 ML IV ONE ×2 (09:00→10:00)
[2019-07-17] MEDS: PROPOFOL 100 ML IV PRN ×3 (09:01→21:57)
[2019-07-17] MEDS: POTASSIUM CHLORIDE 10% 40 MEQ/30 ML UDC PO SCH ×3 (10:00→21:55)
--- NOTE | 2019-07-17 10:41 | NUR ---
TF GOAL: w/ propofol: PROMOTE @ 60ml/hr off propofol: 70ml/hr
[2019-07-17] MEDS: VANCOMYCIN 1,200 MG in SODIUM CHLORIDE 0.9% 250 ML IV SCH ×2 (11:04→22:46)
[2019-07-18] MEDS: FAMOTIDINE 20 MG/2 ML IV SCH ×2 (03:05→14:51)
[2019-07-18] MEDS: HEPARIN 5,000 UNITS/ML, 1ML SQ SCH ×3 (03:05→17:59)
[2019-07-18] MEDS: SODIUM CHLORIDE 0.9% 1,000 ML IV SCH (03:05)
[2019-07-18] MEDS: PROPOFOL 100 ML IV PRN (04:02)
[2019-07-18 05:32] LABS: ANION GAP 7 mmol/L (5-15); BASOPHILS % (AUTO) 0 % (0-1); CALCIUM 8.2 mg/dL (8.5-10.1); CHLORIDE 130 mmol/L (98-107); CREATININE 0.41 mg/dL (0.55-1.02); EOSINOPHILS # (AUTO) 0.24 x10^3/uL (0-0.4); EOSINOPHILS % (AUTO) 2 % (1-7); LYMPHOCYTES % (AUTO) 6 % (22-44); MD NO; MEAN CORPUSCULAR HEMOGLOBIN 26.1 pg (27.0-34.8); MEAN CORPUSCULAR HGB CONC 32.7 g/dL (32.4-35.8); MEAN CORPUSCULAR VOLUME 79.8 fL (80-100); MEAN PLATELET VOLUME 8.1 fL (7.4-10.4); MONOCYTES # (AUTO) 0.04 x10^3/uL (0.2-0.8); MONOCYTES % (AUTO) 0 % (2-9); NEUTROPHILS # (AUTO) 10.22 x10^3/uL (1.8-6.8); NEUTROPHILS % (AUTO) 91 % (42-75); PLATELET COUNT 251 x10^3/uL (130-400); RED BLOOD COUNT 3.86 x10^6/uL (3.82-5.3); RED CELL DISTRIBUTION WIDTH 17.4 % (9.6-15.2)
[2019-07-18] MEDS: INSULIN LISPRO 100 UNITS/ML, PEN SQ-INSULIN SCH ×4 (07:00→21:00)
[2019-07-18] MEDS: SODIUM CHLORIDE 0.45% 1,000 ML IV SCH ×2 (07:43→14:52)
[2019-07-18] MEDS: SODIUM CHLORIDE FLUSH 10ML SYR IVF SCH ×2 (08:51→21:00)
[2019-07-18] MEDS: CEFEPIME 1 GM in DEXTROSE 5% 50 ML IV SCH ×2 (08:51→21:03)
[2019-07-18] MEDS: VANCOMYCIN 1,200 MG in SODIUM CHLORIDE 0.9% 250 ML IV SCH ×2 (08:51→21:03)
[2019-07-18] MEDS: POTASSIUM CHLORIDE 10% 40 MEQ/30 ML UDC PO SCH ×3 (08:56→21:04)
[2019-07-18 16:29] LABS: ANION GAP 4 mmol/L (5-15); CALCIUM 7.9 mg/dL (8.5-10.1); CHLORIDE 133 mmol/L (98-107); CREATININE 0.36 mg/dL (0.55-1.02)
[2019-07-18] MEDS ORDERED: POTASSIUM CHLORIDE 40 MEQ in SODIUM CHLORIDE 0.9% 500 ML IV ONE (17:00)
[2019-07-19] MEDS: SODIUM CHLORIDE 0.45% 1,000 ML IV SCH ×2 (01:10→10:00)
[2019-07-19] MEDS: FAMOTIDINE 20 MG/2 ML IV SCH ×2 (01:10→14:23)
[2019-07-19] MEDS: HEPARIN 5,000 UNITS/ML, 1ML SQ SCH (01:10)
[2019-07-19 06:09] LABS: ANION GAP 5 mmol/L (5-15); CALCIUM 7.9 mg/dL (8.5-10.1); CHLORIDE 134 mmol/L (98-107); TRIGLYCERIDES 93 mg/dL (50-200)
[2019-07-19 06:21] LABS: MEAN CORPUSCULAR HEMOGLOBIN 25.9 pg (27.0-34.8); MEAN CORPUSCULAR VOLUME 78.3 fL (80-100); MEAN PLATELET VOLUME 7.6 fL (7.4-10.4); PLATELET COUNT 243 x10^3/uL (130-400); RED BLOOD COUNT 3.65 x10^6/uL (3.82-5.3); RED CELL DISTRIBUTION WIDTH 17.5 % (9.6-15.2)
[2019-07-19] MEDS: INSULIN LISPRO 100 UNITS/ML, PEN SQ-INSULIN SCH ×4 (07:00→20:18)
[2019-07-19 07:21] LABS: BASOPHILS # (AUTO) 0.02 x10^3/uL (0-0.1); BASOPHILS % (AUTO) 0 % (0-1); EOSINOPHILS % (AUTO) 4 % (1-7); LYMPHOCYTES # (AUTO) 0.75 x10^3/uL (1-3.4); LYMPHOCYTES % (AUTO) 10 % (22-44); MD SCAN; MONOCYTES # (AUTO) 0.12 x10^3/uL (0.2-0.8); MONOCYTES % (AUTO) 2 % (2-9); NEUTROPHILS # (AUTO) 6.55 x10^3/uL (1.8-6.8); NEUTROPHILS % (AUTO) 85 % (42-75)
[2019-07-19] MEDS ORDERED: FENTANYL 50 MCG PATCH TD SCH (08:30)
[2019-07-19] MEDS: MEROPENEM 2 GM in SODIUM CHLORIDE 0.9% 100 ML IV SCH ×2 (08:37→16:17)
[2019-07-19] MEDS: ENOXAPARIN 60 MG/0.6 ML SQ SCH ×2 (08:37→20:13)
[2019-07-19] MEDS: POTASSIUM CHLORIDE 10% 40 MEQ/30 ML UDC PO SCH (08:37)
[2019-07-19] MEDS: SODIUM CHLORIDE FLUSH 10ML SYR IVF SCH ×2 (08:38→20:18)
[2019-07-19 08:53] LABS: CLOSTRIDIUM DIFFICILE ANTIGEN NEGATIVE; CLOSTRIDIUM DIFFICILE TOXIN NEGATIVE (Negative)
[2019-07-19] MEDS: LINEZOLID PMX 600MG/300ML 300 ML IV SCH ×2 (09:46→21:52)
[2019-07-19] MEDS: D5%-0.45% NACL 1,000 ML IV SCH ×2 (12:18→20:14)
[2019-07-19] MEDS ORDERED: FENTANYL PF 100 MCG/2ML ONE (18:35)
[2019-07-19] MEDS ORDERED: FENTANYL PF 100 MCG/2ML IVPush ONE (19:00)
[2019-07-20] MEDS: MEROPENEM 2 GM in SODIUM CHLORIDE 0.9% 100 ML IV SCH ×3 (00:57→17:43)
[2019-07-20] MEDS: FAMOTIDINE 20 MG/2 ML IV SCH (02:18)
[2019-07-20] MEDS: D5%-0.45% NACL 1,000 ML IV SCH (04:03)
[2019-07-20 04:24] LABS: BASOPHILS # (AUTO) 0.02 x10^3/uL (0-0.1); BASOPHILS % (AUTO) 0 % (0-1); EOSINOPHILS # (AUTO) 0.39 x10^3/uL (0-0.4); EOSINOPHILS % (AUTO) 8 % (1-7); LYMPHOCYTES # (AUTO) 0.91 x10^3/uL (1-3.4); LYMPHOCYTES % (AUTO) 18 % (22-44); MD NO; MEAN CORPUSCULAR HGB CONC 32.8 g/dL (32.4-35.8); MEAN CORPUSCULAR VOLUME 79.3 fL (80-100); MEAN PLATELET VOLUME 7.7 fL (7.4-10.4); MONOCYTES # (AUTO) 0.19 x10^3/uL (0.2-0.8); MONOCYTES % (AUTO) 4 % (2-9); NEUTROPHILS # (AUTO) 3.52 x10^3/uL (1.8-6.8); NEUTROPHILS % (AUTO) 70 % (42-75); PLATELET COUNT 235 x10^3/uL (130-400)
[2019-07-20 04:29] LABS: ANION GAP 6 mmol/L (5-15); CALCIUM 7.9 mg/dL (8.5-10.1); CHLORIDE 127 mmol/L (98-107); CREATININE 0.27 mg/dL (0.55-1.02)
[2019-07-20] MEDS: INSULIN LISPRO 100 UNITS/ML, PEN SQ-INSULIN SCH ×4 (07:00→21:24)
[2019-07-20] MEDS ORDERED: POTASSIUM CHLORIDE 40 MEQ in DEXTROSE 5% 1,000 ML IV SCH (07:00)
[2019-07-20] MEDS ORDERED: MAGNESIUM SULFATE PMX 2GM/50ML 50 ML IV ONE (07:00)
[2019-07-20] MEDS: ENOXAPARIN 60 MG/0.6 ML SQ SCH ×2 (08:16→20:42)
[2019-07-20] MEDS: SODIUM CHLORIDE FLUSH 10ML SYR IVF SCH ×2 (08:17→20:42)
[2019-07-20] MEDS: LINEZOLID PMX 600MG/300ML 300 ML IV SCH ×2 (09:13→20:42)
[2019-07-20] MEDS ORDERED: FUROSEMIDE 20 MG/2 ML IV ONE (09:30)
[2019-07-20] MEDS: POTASSIUM CHLORIDE 10% 40 MEQ/30 ML UDC PO SCH ×2 (10:40→21:23)
[2019-07-20] MEDS: OXYcodone IR 5MG TABLET PO PRN ×3 (10:41→18:50)
--- NOTE | 2019-07-20 13:56 | NUR ---
REC PUREE/NTL; ORANGE SHEET WITH DIET RECS AND SWALLOW STRATEGIES POSTED AT BEDSIDE. Addendum: 07/20/19 at 1357 by Madeleine AMES Amended: Links added.
[2019-07-20] MEDS: ONDANSETRON 2MG/ML, 2ML IVPush PRN (18:50)
[2019-07-20 19:36] VITALS: BP 143/96
[2019-07-21] MEDS: MEROPENEM 2 GM in SODIUM CHLORIDE 0.9% 100 ML IV SCH ×3 (00:18→17:36)
[2019-07-21 00:30] VITALS: BP 152/98
[2019-07-21] MEDS: ONDANSETRON 2MG/ML, 2ML IVPush PRN ×2 (02:12→08:03)
[2019-07-21] MEDS: OXYcodone IR 5MG TABLET PO PRN ×4 (02:13→19:55)
[2019-07-21 06:06] LABS: BASOPHILS # (AUTO) 0.02 x10^3/uL (0-0.1); BASOPHILS % (AUTO) 0 % (0-1); EOSINOPHILS # (AUTO) 0.38 x10^3/uL (0-0.4); EOSINOPHILS % (AUTO) 7 % (1-7); LYMPHOCYTES # (AUTO) 1.31 x10^3/uL (1-3.4); LYMPHOCYTES % (AUTO) 26 % (22-44); MD NO; MEAN CORPUSCULAR HGB CONC 32.7 g/dL (32.4-35.8); MEAN CORPUSCULAR VOLUME 79.3 fL (80-100); MEAN PLATELET VOLUME 7.9 fL (7.4-10.4); MONOCYTES # (AUTO) 0.25 x10^3/uL (0.2-0.8); MONOCYTES % (AUTO) 5 % (2-9); NEUTROPHILS # (AUTO) 3.18 x10^3/uL (1.8-6.8); NEUTROPHILS % (AUTO) 62 % (42-75); PLATELET COUNT 250 x10^3/uL (130-400); RED BLOOD COUNT 4.43 x10^6/uL (3.82-5.3); RED CELL DISTRIBUTION WIDTH 17.8 % (9.6-15.2)
[2019-07-21 06:14] LABS: CHLORIDE 120 mmol/L (98-107)
[2019-07-21 06:18] LABS: ANION GAP 4 mmol/L (5-15); CALCIUM 8.2 mg/dL (8.5-10.1); CREATININE 0.34 mg/dL (0.55-1.02)
[2019-07-21] MEDS: INSULIN LISPRO 100 UNITS/ML, PEN SQ-INSULIN SCH ×4 (08:02→19:56)
[2019-07-21] MEDS: ENOXAPARIN 60 MG/0.6 ML SQ SCH ×2 (08:04→19:55)
[2019-07-21 08:12] VITALS: BP 162/95
[2019-07-21] MEDS: SODIUM CHLORIDE FLUSH 10ML SYR IVF SCH ×2 (09:46→19:57)
[2019-07-21] MEDS: LINEZOLID PMX 600MG/300ML 300 ML IV SCH ×2 (10:44→21:33)
[2019-07-21 13:33] VITALS: BP 162/90
[2019-07-21 19:43] VITALS: BP 119/79
[2019-07-22 00:46] VITALS: BP 139/88
[2019-07-22] MEDS: MEROPENEM 2 GM in SODIUM CHLORIDE 0.9% 100 ML IV SCH ×3 (01:16→19:40)
[2019-07-22 05:31] LABS: ANION GAP 7 mmol/L (5-15); CALCIUM 7.5 mg/dL (8.5-10.1); CHLORIDE 108 mmol/L (98-107); CREATININE 0.25 mg/dL (0.55-1.02)
[2019-07-22] MEDS: OXYcodone IR 5MG TABLET PO PRN ×4 (05:56→20:29)
[2019-07-22] MEDS: INSULIN LISPRO 100 UNITS/ML, PEN SQ-INSULIN SCH ×4 (07:00→19:41)
[2019-07-22 07:33] LABS: BASOPHILS # (AUTO) 0.04 x10^3/uL (0-0.1); BASOPHILS % (AUTO) 1 % (0-1); EOSINOPHILS # (AUTO) 0.28 x10^3/uL (0-0.4); EOSINOPHILS % (AUTO) 7 % (1-7); LYMPHOCYTES # (AUTO) 1.25 x10^3/uL (1-3.4); LYMPHOCYTES % (AUTO) 29 % (22-44); MD NO; MEAN CORPUSCULAR HEMOGLOBIN 25.5 pg (27.0-34.8); MEAN CORPUSCULAR HGB CONC 32.7 g/dL (32.4-35.8); MEAN CORPUSCULAR VOLUME 77.7 fL (80-100); MEAN PLATELET VOLUME 7.4 fL (7.4-10.4); MONOCYTES # (AUTO) 0.56 x10^3/uL (0.2-0.8); MONOCYTES % (AUTO) 13 % (2-9); NEUTROPHILS % (AUTO) 51 % (42-75); PLATELET COUNT 248 x10^3/uL (130-400); RED BLOOD COUNT 4.48 x10^6/uL (3.82-5.3); RED CELL DISTRIBUTION WIDTH 17.6 % (9.6-15.2)
[2019-07-22 08:00] VITALS: BP 152/100
[2019-07-22] MEDS ORDERED: POTASSIUM PHOS 4.4 MEQ/ML IV ONE (08:00)
[2019-07-22] MEDS ORDERED: MAGNESIUM SULFATE PMX 2GM/50ML 50 ML IV ONE (08:00)
[2019-07-22] MEDS ORDERED: POTASSIUM PHOSPHATE 44 MEQ in SODIUM CHLORIDE 0.9% 500 ML IV ONE (08:00)
[2019-07-22] MEDS: ENOXAPARIN 60 MG/0.6 ML SQ SCH ×2 (08:11→20:29)
[2019-07-22] MEDS: SODIUM CHLORIDE FLUSH 10ML SYR IVF SCH ×2 (08:12→19:41)
[2019-07-22] MEDS ORDERED: FENTANYL REMOVE PATCH NOTE XX SCH (08:30)
[2019-07-22] MEDS: ONDANSETRON 2MG/ML, 2ML IVPush PRN ×2 (08:45→13:17)
[2019-07-22] MEDS: LINEZOLID PMX 600MG/300ML 300 ML IV SCH ×2 (10:38→21:11)
--- NOTE | 2019-07-22 13:09 | NUR ---
REC GROUND/THIN LIQUID; ORANGE SHEET WITH DIET RECS AND SWALLOW STRATEGIES POSTED AT BEDSIDE. Addendum: 07/22/19 at 1310 by Madeleine AMES Amended: Links added.
[2019-07-22 13:21] VITALS: BP 138/88
[2019-07-22 20:34] VITALS: BP 151/88
[2019-07-23 01:55] VITALS: BP 156/94
[2019-07-23] MEDS: ONDANSETRON 2MG/ML, 2ML IVPush PRN ×4 (02:14→17:24)
[2019-07-23] MEDS: MEROPENEM 2 GM in SODIUM CHLORIDE 0.9% 100 ML IV SCH ×3 (02:15→19:11)
[2019-07-23] MEDS: OXYcodone IR 5MG TABLET PO PRN ×3 (06:17→17:24)
[2019-07-23 06:26] VITALS: BP 124/85
[2019-07-23] MEDS: INSULIN LISPRO 100 UNITS/ML, PEN SQ-INSULIN SCH ×4 (07:00→20:48)
[2019-07-23 07:07] LABS: MEAN CORPUSCULAR HEMOGLOBIN 25.8 pg (27.0-34.8); MEAN CORPUSCULAR HGB CONC 32.5 g/dL (32.4-35.8); MEAN CORPUSCULAR VOLUME 79.5 fL (80-100); PLATELET COUNT 300 x10^3/uL (130-400); RED BLOOD COUNT 5.09 x10^6/uL (3.82-5.3); RED CELL DISTRIBUTION WIDTH 17.4 % (9.6-15.2)
[2019-07-23 07:09] LABS: HCT (SEDRATE) 40.5 % (34.6-47.8)
[2019-07-23 07:18] LABS: ANION GAP 6 mmol/L (5-15); CALCIUM 7.9 mg/dL (8.5-10.1); CHLORIDE 106 mmol/L (98-107); CREATININE 0.43 mg/dL (0.55-1.02)
[2019-07-23 07:51] LABS: MD YES
[2019-07-23 07:53] LABS: BAND#(MANUAL) 0.04 x10^3/uL; BANDS%(MANUAL) 1 % (0-7); EOS#(MANUAL) 0.35 x10^3/uL (0.0-0.4); EOS% (MANUAL) 8 % (1-7); LYMPHS% (MANUAL) 25 % (22-44); MONOS#(MANUAL) 0.31 x10^3/uL (0.3-2.7); MONOS% (MANUAL) 7 % (2-9); SEGS% (MANUAL) 59 % (42-75)
[2019-07-23 07:54] LABS: <PLATELET ESTIMATE> ADEQUATE; <PLT MORPHOLOGY> NORMAL PLT MORPH; MICROCYTOSIS 1+
[2019-07-23] MEDS ORDERED: LINEZOLID 600 MG TABLET PO SCH (09:00)
[2019-07-23] MEDS: ENOXAPARIN 60 MG/0.6 ML SQ SCH ×2 (09:18→20:48)
[2019-07-23] MEDS: SODIUM CHLORIDE FLUSH 10ML SYR IVF SCH ×2 (09:19→20:48)
[2019-07-23] MEDS: CEFTAROLINE 600 MG in SODIUM CHLORIDE 0.9% 100 ML IV SCH ×2 (11:57→22:39)
[2019-07-23 12:09] VITALS: BP 170/96
[2019-07-23] MEDS ORDERED: hydrALAzine 20 MG/ML, 1ML IV PRN (12:30)
[2019-07-23] MEDS: LORazepam 1MG TABLET PO PRN (12:56)
[2019-07-23 19:31] VITALS: BP 125/75
[2019-07-24 02:30] VITALS: BP 125/81
[2019-07-24] MEDS: LORazepam 1MG TABLET PO PRN (02:31)
[2019-07-24] MEDS: MEROPENEM 2 GM in SODIUM CHLORIDE 0.9% 100 ML IV SCH ×3 (02:34→20:32)
[2019-07-24] MEDS: OXYcodone IR 5MG TABLET PO PRN ×3 (03:56→14:05)
[2019-07-24 06:42] VITALS: BP 143/82
[2019-07-24] MEDS: INSULIN LISPRO 100 UNITS/ML, PEN SQ-INSULIN SCH ×4 (07:00→20:32)
[2019-07-24 07:21] LABS: CALCIUM 7.9 mg/dL (8.5-10.1); CREATININE 0.27 mg/dL (0.55-1.02)
[2019-07-24 07:41] LABS: ANION GAP 6 mmol/L (5-15); CHLORIDE 106 mmol/L (98-107)
[2019-07-24 07:48] LABS: BASOPHILS # (AUTO) 0.04 x10^3/uL (0-0.1); BASOPHILS % (AUTO) 1 % (0-1); EOSINOPHILS # (AUTO) 0.16 x10^3/uL (0-0.4); EOSINOPHILS % (AUTO) 4 % (1-7); LYMPHOCYTES # (AUTO) 0.27 x10^3/uL (1-3.4); LYMPHOCYTES % (AUTO) 7 % (22-44); MD NO; MEAN CORPUSCULAR HEMOGLOBIN 25.8 pg (27.0-34.8); MEAN CORPUSCULAR HGB CONC 33.2 g/dL (32.4-35.8); MEAN CORPUSCULAR VOLUME 77.5 fL (80-100); MEAN PLATELET VOLUME 7.3 fL (7.4-10.4); MONOCYTES # (AUTO) 0.06 x10^3/uL (0.2-0.8); MONOCYTES % (AUTO) 1 % (2-9); NEUTROPHILS # (AUTO) 3.47 x10^3/uL (1.8-6.8); NEUTROPHILS % (AUTO) 87 % (42-75); PLATELET COUNT 239 x10^3/uL (130-400); RED BLOOD COUNT 4.43 x10^6/uL (3.82-5.3); RED CELL DISTRIBUTION WIDTH 17.2 % (9.6-15.2)
[2019-07-24] MEDS: AMLODIPINE 5 MG TABLET PO SCH (09:52)
[2019-07-24] MEDS: ENOXAPARIN 60 MG/0.6 ML SQ SCH ×2 (09:52→20:32)
[2019-07-24] MEDS: SODIUM CHLORIDE FLUSH 10ML SYR IVF SCH ×2 (09:52→20:33)
[2019-07-24] MEDS: CEFTAROLINE 600 MG in SODIUM CHLORIDE 0.9% 100 ML IV SCH ×2 (11:13→23:33)
[2019-07-24 12:02] VITALS: BP 125/77
[2019-07-24] MEDS: ONDANSETRON 2MG/ML, 2ML IVPush PRN (12:24)
--- NOTE | 2019-07-24 14:48 | NUR ---
- Recommend CHOPPED/THIN liquid *Upright at 90 degrees for all PO intake *Small sips/bites *Alternate liquids/solids *Meds as tolerated *Straws OK Addendum: 07/24/19 at 1450 by SONIYA AMES Amended: Links added.
[2019-07-24 18:56] VITALS: BP 103/70
[2019-07-25 01:10] VITALS: BP 110/61
[2019-07-25] MEDS: OXYcodone IR 5MG TABLET PO PRN ×4 (01:14→17:29)
[2019-07-25] MEDS: MEROPENEM 2 GM in SODIUM CHLORIDE 0.9% 100 ML IV SCH ×3 (03:01→19:36)
[2019-07-25 06:57] VITALS: BP 124/78
[2019-07-25] MEDS: INSULIN LISPRO 100 UNITS/ML, PEN SQ-INSULIN SCH ×4 (07:54→19:50)
[2019-07-25 08:28] LABS: BASOPHILS # (AUTO) 0.02 x10^3/uL (0-0.1); BASOPHILS % (AUTO) 0 % (0-1); EOSINOPHILS % (AUTO) 5 % (1-7); LYMPHOCYTES # (AUTO) 0.56 x10^3/uL (1-3.4); LYMPHOCYTES % (AUTO) 13 % (22-44); MD NO; MEAN CORPUSCULAR HEMOGLOBIN 26.1 pg (27.0-34.8); MEAN CORPUSCULAR HGB CONC 32.9 g/dL (32.4-35.8); MEAN CORPUSCULAR VOLUME 79.2 fL (80-100); MEAN PLATELET VOLUME 7.5 fL (7.4-10.4); MONOCYTES % (AUTO) 5 % (2-9); NEUTROPHILS % (AUTO) 77 % (42-75); PLATELET COUNT 248 x10^3/uL (130-400); RED BLOOD COUNT 4.48 x10^6/uL (3.82-5.3); RED CELL DISTRIBUTION WIDTH 17.8 % (9.6-15.2)
[2019-07-25 08:33] LABS: CHLORIDE 106 mmol/L (98-107)
[2019-07-25] MEDS: AMLODIPINE 5 MG TABLET PO SCH (08:35)
[2019-07-25] MEDS: ENOXAPARIN 60 MG/0.6 ML SQ SCH ×2 (08:35→19:43)
[2019-07-25] MEDS: LORazepam 1MG TABLET PO PRN ×2 (08:35→19:51)
[2019-07-25] MEDS: SODIUM CHLORIDE FLUSH 10ML SYR IVF SCH ×2 (08:36→19:49)
[2019-07-25 08:46] LABS: ANION GAP 5 mmol/L (5-15); CREATININE 0.44 mg/dL (0.55-1.02)
[2019-07-25] MEDS: ONDANSETRON 2MG/ML, 2ML IVPush PRN ×2 (11:41→19:43)
[2019-07-25] MEDS: CEFTAROLINE 600 MG in SODIUM CHLORIDE 0.9% 100 ML IV SCH (13:10)
[2019-07-25 13:37] VITALS: BP 109/68
[2019-07-25 19:04] VITALS: BP 101/71
[2019-07-26] MEDS: CEFTAROLINE 600 MG in SODIUM CHLORIDE 0.9% 100 ML IV SCH ×2 (00:46→13:58)
[2019-07-26 02:02] VITALS: BP 123/84
[2019-07-26] MEDS: MEROPENEM 2 GM in SODIUM CHLORIDE 0.9% 100 ML IV SCH ×3 (03:04→20:16)
[2019-07-26] MEDS: OXYcodone IR 5MG TABLET PO PRN ×3 (05:35→18:26)
[2019-07-26 06:29] LABS: BASOPHILS # (AUTO) 0.04 x10^3/uL (0-0.1); BASOPHILS % (AUTO) 1 % (0-1); EOSINOPHILS # (AUTO) 0.33 x10^3/uL (0-0.4); EOSINOPHILS % (AUTO) 6 % (1-7); LYMPHOCYTES # (AUTO) 0.73 x10^3/uL (1-3.4); LYMPHOCYTES % (AUTO) 13 % (22-44); MD NO; MEAN CORPUSCULAR HEMOGLOBIN 26.5 pg (27.0-34.8); MEAN CORPUSCULAR HGB CONC 32.6 g/dL (32.4-35.8); MEAN CORPUSCULAR VOLUME 81.4 fL (80-100); MEAN PLATELET VOLUME 7.5 fL (7.4-10.4); MONOCYTES # (AUTO) 0.25 x10^3/uL (0.2-0.8); MONOCYTES % (AUTO) 4 % (2-9); NEUTROPHILS # (AUTO) 4.48 x10^3/uL (1.8-6.8); NEUTROPHILS % (AUTO) 77 % (42-75); PLATELET COUNT 284 x10^3/uL (130-400); RED BLOOD COUNT 4.65 x10^6/uL (3.82-5.3); RED CELL DISTRIBUTION WIDTH 17.1 % (9.6-15.2)
[2019-07-26 06:32] LABS: CHLORIDE 106 mmol/L (98-107)
[2019-07-26 06:36] LABS: ANION GAP 5 mmol/L (5-15); CALCIUM 8.8 mg/dL (8.5-10.1); CREATININE 0.35 mg/dL (0.55-1.02)
[2019-07-26] MEDS: ONDANSETRON 2MG/ML, 2ML IVPush PRN ×3 (06:46→20:16)
[2019-07-26 07:50] VITALS: BP 100/66
[2019-07-26] MEDS: INSULIN LISPRO 100 UNITS/ML, PEN SQ-INSULIN SCH ×4 (07:52→20:16)
[2019-07-26] MEDS: LORazepam 1MG TABLET PO PRN ×2 (08:36→20:17)
[2019-07-26] MEDS: AMLODIPINE 5 MG TABLET PO SCH (08:36)
[2019-07-26] MEDS: SODIUM CHLORIDE FLUSH 10ML SYR IVF SCH ×2 (08:36→20:16)
[2019-07-26] MEDS: POTASSIUM CHLORIDE 20 MEQ PACKET PO SCH (08:36)
[2019-07-26] MEDS: ENOXAPARIN 60 MG/0.6 ML SQ SCH ×2 (08:38→20:16)
[2019-07-26 15:20] VITALS: BP 103/65
[2019-07-26] MEDS: SENNA/DOCUSATE TABLET NG PRN (18:40)
[2019-07-26 20:52] VITALS: BP 104/66
[2019-07-27 02:23] VITALS: BP 110/70
[2019-07-27] MEDS: CEFTAROLINE 600 MG in SODIUM CHLORIDE 0.9% 100 ML IV SCH ×2 (02:23→16:19)
[2019-07-27] MEDS: ONDANSETRON 2MG/ML, 2ML IVPush PRN ×2 (02:45→20:55)
[2019-07-27] MEDS: OXYcodone IR 5MG TABLET PO PRN ×4 (02:46→23:09)
[2019-07-27] MEDS: MEROPENEM 2 GM in SODIUM CHLORIDE 0.9% 100 ML IV SCH ×3 (04:26→20:56)
[2019-07-27 05:11] LABS: BASOPHILS # (AUTO) 0.02 x10^3/uL (0-0.1); BASOPHILS % (AUTO) 0 % (0-1); EOSINOPHILS # (AUTO) 0.38 x10^3/uL (0-0.4); EOSINOPHILS % (AUTO) 6 % (1-7); LYMPHOCYTES % (AUTO) 9 % (22-44); MD NO; MEAN CORPUSCULAR HEMOGLOBIN 26.3 pg (27.0-34.8); MEAN CORPUSCULAR HGB CONC 32.6 g/dL (32.4-35.8); MEAN CORPUSCULAR VOLUME 80.7 fL (80-100); MEAN PLATELET VOLUME 7.4 fL (7.4-10.4); MONOCYTES # (AUTO) 0.34 x10^3/uL (0.2-0.8); MONOCYTES % (AUTO) 5 % (2-9); NEUTROPHILS # (AUTO) 5.43 x10^3/uL (1.8-6.8); NEUTROPHILS % (AUTO) 80 % (42-75); PLATELET COUNT 312 x10^3/uL (130-400); RED BLOOD COUNT 4.83 x10^6/uL (3.82-5.3); RED CELL DISTRIBUTION WIDTH 17.4 % (9.6-15.2)
[2019-07-27 05:14] LABS: ANION GAP 6 mmol/L (5-15); CHLORIDE 104 mmol/L (98-107); CREATININE 0.47 mg/dL (0.55-1.02)
[2019-07-27] MEDS: INSULIN LISPRO 100 UNITS/ML, PEN SQ-INSULIN SCH ×4 (07:00→20:56)
[2019-07-27] MEDS: LORazepam 1MG TABLET PO PRN ×2 (07:44→19:32)
[2019-07-27 08:00] VITALS: BP 109/67
[2019-07-27] MEDS ORDERED: MAALOX/HYOSCYAMINE/LIDOCAINE 45 ML BTL PO ONE (08:30)
[2019-07-27] MEDS: SODIUM CHLORIDE FLUSH 10ML SYR IVF SCH ×2 (09:34→20:56)
[2019-07-27] MEDS: ENOXAPARIN 60 MG/0.6 ML SQ SCH ×2 (09:34→20:55)
[2019-07-27] MEDS: POTASSIUM CHLORIDE 20 MEQ PACKET PO SCH (09:34)
[2019-07-27] MEDS: AMLODIPINE 5 MG TABLET PO SCH (09:34)
[2019-07-27 10:36] LABS: ALBUMIN 2.4 g/dL (3.4-5.0)
[2019-07-27 10:40] LABS: BILIRUBIN, DIRECT 0.1 mg/dL (0.1-0.2); BILIRUBIN,INDIRECT 0.3 mg/dL (0.0-2.0); BILIRUBIN,TOTAL 0.4 mg/dL (0.2-1.0); TOTAL PROTEIN 6.9 g/dL (6.4-8.2)
[2019-07-27 14:00] VITALS: BP 156/76
[2019-07-27 20:10] VITALS: BP 108/68
[2019-07-28 02:20] VITALS: BP 100/60
[2019-07-28] MEDS: CEFTAROLINE 600 MG in SODIUM CHLORIDE 0.9% 100 ML IV SCH (03:59)
[2019-07-28] MEDS: OXYcodone IR 5MG TABLET PO PRN ×3 (04:16→20:55)
[2019-07-28] MEDS: MEROPENEM 2 GM in SODIUM CHLORIDE 0.9% 100 ML IV SCH (05:30)
[2019-07-28] MEDS: LACTULOSE 20 GM/30 ML UDC NG PRN (05:31)
[2019-07-28 05:38] LABS: BASOPHILS # (AUTO) 0.08 x10^3/uL (0-0.1); BASOPHILS % (AUTO) 1 % (0-1); EOSINOPHILS # (AUTO) 0.39 x10^3/uL (0-0.4); EOSINOPHILS % (AUTO) 6 % (1-7); LYMPHOCYTES # (AUTO) 1.45 x10^3/uL (1-3.4); LYMPHOCYTES % (AUTO) 23 % (22-44); MD NO; MEAN CORPUSCULAR HEMOGLOBIN 26.6 pg (27.0-34.8); MEAN CORPUSCULAR HGB CONC 32.8 g/dL (32.4-35.8); MEAN PLATELET VOLUME 7.6 fL (7.4-10.4); MONOCYTES # (AUTO) 0.53 x10^3/uL (0.2-0.8); MONOCYTES % (AUTO) 9 % (2-9); NEUTROPHILS # (AUTO) 3.76 x10^3/uL (1.8-6.8); NEUTROPHILS % (AUTO) 61 % (42-75); PLATELET COUNT 341 x10^3/uL (130-400); RED BLOOD COUNT 4.53 x10^6/uL (3.82-5.3); RED CELL DISTRIBUTION WIDTH 18.1 % (9.6-15.2)
[2019-07-28 05:57] LABS: ANION GAP 9 mmol/L (5-15); CALCIUM 8.7 mg/dL (8.5-10.1); CHLORIDE 103 mmol/L (98-107); CREATININE 0.39 mg/dL (0.55-1.02)
[2019-07-28 07:00] VITALS: BP 116/67
[2019-07-28] MEDS: INSULIN LISPRO 100 UNITS/ML, PEN SQ-INSULIN SCH ×4 (07:00→20:54)
[2019-07-28] MEDS: AMLODIPINE 5 MG TABLET PO SCH (08:20)
[2019-07-28] MEDS: POTASSIUM CHLORIDE 20 MEQ PACKET PO SCH (08:21)
[2019-07-28] MEDS: SODIUM CHLORIDE FLUSH 10ML SYR IVF SCH ×2 (08:21→20:53)
[2019-07-28] MEDS: ENOXAPARIN 60 MG/0.6 ML SQ SCH ×2 (08:21→20:54)
[2019-07-28] MEDS: DIPHENHYDRAMINE 25 MG CAPSULE PO PRN ×2 (12:04→23:16)
[2019-07-28 13:11] VITALS: BP 115/70
[2019-07-28 20:55] VITALS: BP 105/67
[2019-07-28] MEDS: ONDANSETRON 2MG/ML, 2ML IVPush PRN (21:05)
[2019-07-29] MEDS: OXYcodone IR 5MG TABLET PO PRN ×4 (01:05→19:55)
[2019-07-29 04:28] VITALS: BP 103/63
[2019-07-29] MEDS: LORazepam 1MG TABLET PO PRN ×2 (05:01→16:25)
[2019-07-29] MEDS: ONDANSETRON 2MG/ML, 2ML IVPush PRN (05:01)
[2019-07-29] MEDS: PANTOPROZOLE 40MG TABLET PO SCH (05:01)
[2019-07-29 07:16] LABS: BASOPHILS # (AUTO) 0.05 x10^3/uL (0-0.1); BASOPHILS % (AUTO) 1 % (0-1); EOSINOPHILS # (AUTO) 0.28 x10^3/uL (0-0.4); EOSINOPHILS % (AUTO) 5 % (1-7); LYMPHOCYTES # (AUTO) 1.51 x10^3/uL (1-3.4); LYMPHOCYTES % (AUTO) 29 % (22-44); MD NO; MEAN CORPUSCULAR HEMOGLOBIN 26.1 pg (27.0-34.8); MEAN CORPUSCULAR HGB CONC 32.2 g/dL (32.4-35.8); MEAN PLATELET VOLUME 7.4 fL (7.4-10.4); MONOCYTES % (AUTO) 6 % (2-9); NEUTROPHILS # (AUTO) 3.01 x10^3/uL (1.8-6.8); NEUTROPHILS % (AUTO) 58 % (42-75); PLATELET COUNT 319 x10^3/uL (130-400); RED BLOOD COUNT 4.67 x10^6/uL (3.82-5.3); RED CELL DISTRIBUTION WIDTH 18.9 % (9.6-15.2)
[2019-07-29 07:20] LABS: ANION GAP 8 mmol/L (5-15); CALCIUM 9.1 mg/dL (8.5-10.1); CHLORIDE 103 mmol/L (98-107); CREATININE 0.42 mg/dL (0.55-1.02)
[2019-07-29 07:27] VITALS: BP 109/68
[2019-07-29] MEDS: INSULIN LISPRO 100 UNITS/ML, PEN SQ-INSULIN SCH ×4 (08:12→19:58)
[2019-07-29] MEDS: SODIUM CHLORIDE FLUSH 10ML SYR IVF SCH ×2 (08:12→19:55)
[2019-07-29] MEDS: ENOXAPARIN 60 MG/0.6 ML SQ SCH ×2 (08:13→20:02)
[2019-07-29] MEDS: AMLODIPINE 5 MG TABLET PO SCH (08:14)
[2019-07-29] MEDS: ERTAPENEM 1 GM in SODIUM CHLORIDE 0.9% 50 ML IV SCH (09:20)
[2019-07-29] MEDS: PROMETHAZINE 25 MG/ML, 1ML IM PRN ×2 (11:54→20:12)
[2019-07-29 16:50] VITALS: BP 100/68
[2019-07-29 20:00] VITALS: BP 109/71
[2019-07-29] MEDS: DIPHENHYDRAMINE 25 MG CAPSULE PO PRN (21:54)
[2019-07-30 00:09] VITALS: BP 109/72
[2019-07-30] MEDS: OXYcodone IR 5MG TABLET PO PRN ×4 (00:56→15:59)
[2019-07-30] MEDS: DIPHENHYDRAMINE 25 MG CAPSULE PO PRN (02:23)
[2019-07-30] MEDS: LORazepam 1MG TABLET PO PRN (04:43)
[2019-07-30] MEDS: PANTOPROZOLE 40MG TABLET PO SCH (06:41)
[2019-07-30 06:52] VITALS: BP 122/79
[2019-07-30] MEDS: INSULIN LISPRO 100 UNITS/ML, PEN SQ-INSULIN SCH ×4 (07:00→21:00)
[2019-07-30] MEDS: ENOXAPARIN 60 MG/0.6 ML SQ SCH ×2 (08:03→21:31)
[2019-07-30] MEDS: AMLODIPINE 5 MG TABLET PO SCH (08:03)
[2019-07-30] MEDS: ERTAPENEM 1 GM in SODIUM CHLORIDE 0.9% 50 ML IV SCH (08:04)
[2019-07-30] MEDS: SODIUM CHLORIDE FLUSH 10ML SYR IVF SCH ×2 (08:04→21:31)
[2019-07-30] MEDS: PROMETHAZINE 25 MG/ML, 1ML IM PRN (08:16)
[2019-07-30] MEDS ORDERED: LACTOBACILLUS CHEW TABLET ONE (10:06)
[2019-07-30] MEDS: ACETAMINOPHEN 325 MG TABLET PO SCH ×3 (10:11→21:31)
[2019-07-30] MEDS: LACTOBACILLUS CHEW TABLET PO SCH ×3 (10:11→21:30)
[2019-07-30 10:57] LABS: ANION GAP 7 mmol/L (5-15); CALCIUM 8.9 mg/dL (8.5-10.1); CHLORIDE 104 mmol/L (98-107); CREATININE 0.36 mg/dL (0.55-1.02)
[2019-07-30 11:06] LABS: MEAN CORPUSCULAR HEMOGLOBIN 26.2 pg (27.0-34.8); MEAN CORPUSCULAR HGB CONC 32.4 g/dL (32.4-35.8); MEAN PLATELET VOLUME 7.4 fL (7.4-10.4); PLATELET COUNT 335 x10^3/uL (130-400); RED BLOOD COUNT 4.59 x10^6/uL (3.82-5.3); RED CELL DISTRIBUTION WIDTH 20.6 % (9.6-15.2)
[2019-07-30 11:08] LABS: MD YES
[2019-07-30] MEDS: LACTULOSE 20 GM/30 ML UDC NG PRN (11:10)
[2019-07-30] MEDS: SENNA/DOCUSATE TABLET NG PRN (11:10)
[2019-07-30 11:13] LABS: BAND#(MANUAL) 0.05 x10^3/uL; BANDS%(MANUAL) 1 % (0-7); EOS#(MANUAL) 0.31 x10^3/uL (0.0-0.4); EOS% (MANUAL) 6 % (1-7); LYMPH#(MANUAL) 2.04 x10^3/uL (1-3.4); LYMPHS% (MANUAL) 40 % (22-44); METAMYELOCYTES# (MANUAL) 0.05 x10^3/uL (0-0); METAMYELOCYTES% (MANUAL) 1 % (0-1)
[2019-07-30 11:14] LABS: REACTIVE LYMPHS % (MANUAL) 2 % (0-0)
[2019-07-30 11:18] LABS: BASOS% (MANUAL) 2 % (0-1); MONOS#(MANUAL) 0.26 x10^3/uL (0.3-2.7); MONOS% (MANUAL) 5 % (2-9); SEG#(MANUAL) 2.19 x10^3/uL (1.8-6.8); SEGS% (MANUAL) 43 % (42-75)
[2019-07-30 11:19] LABS: ANISOCYTOSIS 1+
[2019-07-30 11:20] LABS: <PLATELET ESTIMATE> ADEQUATE; <PLT MORPHOLOGY> NORMAL PLT MORPH; OVALOCYTES 1+
[2019-07-30 12:22] VITALS: BP 124/79
[2019-07-30] MEDS: GABAPENTIN 300 MG CAPSULE PO SCH ×2 (15:59→21:30)
[2019-07-30 21:37] VITALS: BP 115/77
[2019-07-31 01:11] VITALS: BP 118/83
[2019-07-31] MEDS: OXYcodone IR 5MG TABLET PO PRN ×4 (01:27→19:49)
[2019-07-31] MEDS: LORazepam 1MG TABLET PO PRN ×2 (01:28→12:22)
[2019-07-31] MEDS: ACETAMINOPHEN 325 MG TABLET PO SCH ×4 (03:47→22:00)
[2019-07-31] MEDS: PANTOPROZOLE 40MG TABLET PO SCH (05:03)
[2019-07-31] MEDS: LACTULOSE 20 GM/30 ML UDC NG PRN (05:52)
[2019-07-31] MEDS: PROMETHAZINE 25 MG/ML, 1ML IM PRN (05:58)
[2019-07-31 06:26] LABS: BASOPHILS # (AUTO) 0.06 x10^3/uL (0-0.1); BASOPHILS % (AUTO) 1 % (0-1); EOSINOPHILS # (AUTO) 0.42 x10^3/uL (0-0.4); EOSINOPHILS % (AUTO) 7 % (1-7); LYMPHOCYTES # (AUTO) 1.44 x10^3/uL (1-3.4); LYMPHOCYTES % (AUTO) 23 % (22-44); MD NO; MEAN CORPUSCULAR HEMOGLOBIN 26.9 pg (27.0-34.8); MEAN CORPUSCULAR HGB CONC 32.7 g/dL (32.4-35.8); MEAN CORPUSCULAR VOLUME 82.2 fL (80-100); MEAN PLATELET VOLUME 7.9 fL (7.4-10.4); MONOCYTES # (AUTO) 0.38 x10^3/uL (0.2-0.8); MONOCYTES % (AUTO) 6 % (2-9); NEUTROPHILS % (AUTO) 63 % (42-75); PLATELET COUNT 397 x10^3/uL (130-400); RED BLOOD COUNT 4.62 x10^6/uL (3.82-5.3); RED CELL DISTRIBUTION WIDTH 20.8 % (9.6-15.2)
[2019-07-31 06:38] LABS: ANION GAP 6 mmol/L (5-15); CALCIUM 9.2 mg/dL (8.5-10.1); CHLORIDE 105 mmol/L (98-107); CREATININE 0.41 mg/dL (0.55-1.02)
[2019-07-31] MEDS: INSULIN LISPRO 100 UNITS/ML, PEN SQ-INSULIN SCH ×4 (07:00→20:22)
[2019-07-31 07:51] VITALS: BP 124/68
[2019-07-31] MEDS: LACTOBACILLUS CHEW TABLET PO SCH ×3 (08:14→19:49)
[2019-07-31] MEDS: ENOXAPARIN 60 MG/0.6 ML SQ SCH ×2 (08:14→20:21)
[2019-07-31] MEDS: GABAPENTIN 300 MG CAPSULE PO SCH ×3 (08:14→19:48)
[2019-07-31] MEDS: AMLODIPINE 5 MG TABLET PO SCH (08:14)
[2019-07-31] MEDS: ERTAPENEM 1 GM in SODIUM CHLORIDE 0.9% 50 ML IV SCH (08:14)
[2019-07-31] MEDS: SODIUM CHLORIDE FLUSH 10ML SYR IVF SCH ×2 (08:22→20:21)
[2019-07-31] MEDS: IBUPROFEN 200 MG TABLET PO PRN (12:22)
[2019-07-31 14:25] VITALS: BP 110/68
[2019-07-31 19:53] VITALS: BP 94/59
[2019-08-01 01:29] VITALS: BP 102/62
[2019-08-01] MEDS: LORazepam 1MG TABLET PO PRN ×2 (02:02→15:20)
[2019-08-01] MEDS: OXYcodone IR 5MG TABLET PO PRN ×3 (02:03→17:06)
[2019-08-01] MEDS: ACETAMINOPHEN 325 MG TABLET PO SCH ×4 (04:41→21:23)
[2019-08-01] MEDS: PANTOPROZOLE 40MG TABLET PO SCH (05:10)
[2019-08-01 07:00] VITALS: BP 113/69
[2019-08-01] MEDS: INSULIN LISPRO 100 UNITS/ML, PEN SQ-INSULIN SCH (07:00)
[2019-08-01] MEDS: ERTAPENEM 1 GM in SODIUM CHLORIDE 0.9% 50 ML IV SCH (08:30)
[2019-08-01] MEDS: ENOXAPARIN 60 MG/0.6 ML SQ SCH ×2 (08:30→21:22)
[2019-08-01] MEDS: LACTOBACILLUS CHEW TABLET PO SCH ×3 (08:30→21:23)
[2019-08-01] MEDS: SODIUM CHLORIDE FLUSH 10ML SYR IVF SCH ×2 (08:31→21:23)
[2019-08-01] MEDS: GABAPENTIN 300 MG CAPSULE PO SCH ×3 (08:31→21:23)
[2019-08-01 12:53] VITALS: BP 93/55
[2019-08-01] MEDS: IBUPROFEN 200 MG TABLET PO PRN (14:26)
[2019-08-01 15:47] VITALS: BP 125/68
[2019-08-01] MEDS: METOPROLOL TARTRATE 50 MG TABLET PO SCH (17:07)
[2019-08-01 19:21] VITALS: BP 105/66
[2019-08-01] MEDS: ONDANSETRON 2MG/ML, 2ML IVPush PRN (21:33)
[2019-08-02 00:53] VITALS: BP 101/63
[2019-08-02] MEDS: OXYcodone IR 5MG TABLET PO PRN ×4 (01:45→22:11)
[2019-08-02] MEDS: LORazepam 1MG TABLET PO PRN ×3 (02:40→21:35)
[2019-08-02] MEDS: ACETAMINOPHEN 325 MG TABLET PO SCH ×4 (04:00→21:16)
[2019-08-02] MEDS: IBUPROFEN 200 MG TABLET PO PRN ×2 (04:48→13:52)
[2019-08-02] MEDS: PANTOPROZOLE 40MG TABLET PO SCH (05:11)
[2019-08-02] MEDS: METOPROLOL TARTRATE 50 MG TABLET PO SCH ×2 (05:11→16:05)
[2019-08-02] MEDS: ONDANSETRON 2MG/ML, 2ML IVPush PRN (06:09)
[2019-08-02 08:17] VITALS: BP 103/62
[2019-08-02] MEDS: ERTAPENEM 1 GM in SODIUM CHLORIDE 0.9% 50 ML IV SCH (08:25)
[2019-08-02] MEDS: SODIUM CHLORIDE FLUSH 10ML SYR IVF SCH ×2 (08:26→21:17)
[2019-08-02] MEDS: LACTOBACILLUS CHEW TABLET PO SCH ×3 (08:26→21:17)
[2019-08-02] MEDS: GABAPENTIN 300 MG CAPSULE PO SCH ×3 (08:26→21:17)
[2019-08-02] MEDS: ENOXAPARIN 60 MG/0.6 ML SQ SCH ×2 (08:27→21:15)
[2019-08-02] MEDS: LIDODERM 5% PATCH TD SCH (16:05)
[2019-08-02 16:12] VITALS: BP 113/69
[2019-08-02 19:23] VITALS: BP 96/60
[2019-08-03 01:02] VITALS: BP 98/55
[2019-08-03] MEDS: ACETAMINOPHEN 325 MG TABLET PO SCH ×4 (03:22→21:09)
[2019-08-03] MEDS: LIDODERM REMOVE PATCH NOTE XX SCH (04:10)
[2019-08-03] MEDS: OXYcodone IR 5MG TABLET PO PRN ×3 (04:17→23:35)
[2019-08-03] MEDS: PANTOPROZOLE 40MG TABLET PO SCH (06:40)
[2019-08-03] MEDS: METOPROLOL TARTRATE 50 MG TABLET PO SCH ×2 (06:40→17:48)
[2019-08-03] MEDS: ERTAPENEM 1 GM in SODIUM CHLORIDE 0.9% 50 ML IV SCH (08:32)
[2019-08-03] MEDS: GABAPENTIN 300 MG CAPSULE PO SCH ×3 (08:32→21:09)
[2019-08-03] MEDS: ENOXAPARIN 60 MG/0.6 ML SQ SCH ×2 (08:32→21:09)
[2019-08-03] MEDS: LACTOBACILLUS CHEW TABLET PO SCH ×3 (08:32→21:09)
[2019-08-03] MEDS: SODIUM CHLORIDE FLUSH 10ML SYR IVF SCH ×2 (08:33→21:00)
[2019-08-03] MEDS: IBUPROFEN 200 MG TABLET PO PRN (08:39)
[2019-08-03] MEDS: ONDANSETRON 2MG/ML, 2ML IVPush PRN (08:39)
[2019-08-03 08:53] LABS: INTERNATIONAL NORMALIZED RATIO 0.97 (0.93-1.1); PROTHROMBIN TIME 10.2 Seconds (9.6-11.5)
[2019-08-03 09:54] VITALS: BP 114/63
[2019-08-03] MEDS: WARFARIN HIGH DOSE PROTOCOL XX SCH (12:00)
[2019-08-03 13:25] VITALS: BP 151/86
[2019-08-03] MEDS: LORazepam 1MG TABLET PO PRN (14:44)
[2019-08-03] MEDS: LIDODERM 5% PATCH TD SCH (15:30)
[2019-08-03] MEDS ORDERED: WARFARIN 10 MG TABLET PO-COUM SCH (18:00)
[2019-08-03 19:15] VITALS: BP 109/74
[2019-08-03] MEDS: BACLOFEN 10 MG TABLET PO SCH (21:09)
[2019-08-04 01:46] VITALS: BP 102/67
[2019-08-04] MEDS: LIDODERM REMOVE PATCH NOTE XX SCH (03:19)
[2019-08-04] MEDS: ACETAMINOPHEN 325 MG TABLET PO SCH ×4 (03:19→20:13)
[2019-08-04] MEDS: LORazepam 1MG TABLET PO PRN ×2 (03:24→23:37)
[2019-08-04] MEDS: OXYcodone IR 5MG TABLET PO PRN ×3 (05:43→20:12)
[2019-08-04] MEDS: PANTOPROZOLE 40MG TABLET PO SCH (05:44)
[2019-08-04] MEDS: METOPROLOL TARTRATE 50 MG TABLET PO SCH ×2 (05:44→18:27)
[2019-08-04 06:45] LABS: INTERNATIONAL NORMALIZED RATIO 1.02 (0.93-1.1); PROTHROMBIN TIME 10.7 Seconds (9.6-11.5)
[2019-08-04 06:55] VITALS: BP 122/74
[2019-08-04] MEDS: ENOXAPARIN 60 MG/0.6 ML SQ SCH ×2 (08:15→20:13)
[2019-08-04] MEDS: LACTOBACILLUS CHEW TABLET PO SCH ×3 (08:16→20:13)
[2019-08-04] MEDS: ERTAPENEM 1 GM in SODIUM CHLORIDE 0.9% 50 ML IV SCH (08:16)
[2019-08-04] MEDS: SODIUM CHLORIDE FLUSH 10ML SYR IVF SCH ×2 (08:16→20:13)
[2019-08-04] MEDS: BACLOFEN 10 MG TABLET PO SCH (08:17)
[2019-08-04] MEDS: GABAPENTIN 300 MG CAPSULE PO SCH ×3 (08:17→20:13)
[2019-08-04] MEDS: ONDANSETRON 2MG/ML, 2ML IVPush PRN ×2 (09:26→23:50)
[2019-08-04] MEDS: WARFARIN HIGH DOSE PROTOCOL XX SCH (12:00)
[2019-08-04 12:18] VITALS: BP 118/71
[2019-08-04] MEDS: IBUPROFEN 200 MG TABLET PO PRN (12:41)
[2019-08-04] MEDS: LIDODERM 5% PATCH TD SCH (15:30)
[2019-08-04] MEDS ORDERED: WARFARIN 7.5 MG TABLET PO-COUM SCH (18:00)
[2019-08-04 20:36] VITALS: BP 138/72
[2019-08-05] MEDS: ACETAMINOPHEN 325 MG TABLET PO SCH ×4 (03:14→21:17)
[2019-08-05 03:58] VITALS: BP 102/65
[2019-08-05] MEDS: LIDODERM REMOVE PATCH NOTE XX SCH (04:00)
[2019-08-05] MEDS: METOPROLOL TARTRATE 50 MG TABLET PO SCH ×2 (05:40→18:10)
[2019-08-05] MEDS: PANTOPROZOLE 40MG TABLET PO SCH (05:40)
[2019-08-05] MEDS: OXYcodone IR 5MG TABLET PO PRN ×2 (05:41→16:32)
[2019-08-05 08:26] LABS: INTERNATIONAL NORMALIZED RATIO 1.28 (0.93-1.1); PROTHROMBIN TIME 13.3 Seconds (9.6-11.5)
[2019-08-05] MEDS: SODIUM CHLORIDE FLUSH 10ML SYR IVF SCH ×2 (08:40→21:18)
[2019-08-05] MEDS: LACTOBACILLUS CHEW TABLET PO SCH ×3 (08:41→21:17)
[2019-08-05] MEDS: ENOXAPARIN 60 MG/0.6 ML SQ SCH ×2 (08:41→21:18)
[2019-08-05] MEDS: GABAPENTIN 300 MG CAPSULE PO SCH ×3 (08:42→21:17)
[2019-08-05] MEDS: ONDANSETRON 2MG/ML, 2ML IVPush PRN ×2 (08:42→16:32)
[2019-08-05] MEDS: ERTAPENEM 1 GM in SODIUM CHLORIDE 0.9% 50 ML IV SCH (08:57)
[2019-08-05] MEDS: DIPHENHYDRAMINE 25 MG CAPSULE PO PRN (09:57)
[2019-08-05 09:59] VITALS: BP 101/63
[2019-08-05] MEDS: WARFARIN HIGH DOSE PROTOCOL XX SCH (12:00)
[2019-08-05] MEDS: IBUPROFEN 200 MG TABLET PO PRN (12:47)
[2019-08-05 13:33] VITALS: BP 99/61
[2019-08-05] MEDS: LORazepam 1MG TABLET PO PRN ×2 (13:48→21:17)
[2019-08-05] MEDS ORDERED: WARFARIN 7.5 MG TABLET PO-COUM SCH (18:00)
[2019-08-05 19:39] VITALS: BP 123/74
[2019-08-06] MEDS: OXYcodone IR 5MG TABLET PO PRN ×2 (01:05→09:14)
[2019-08-06 02:01] VITALS: BP 98/62
[2019-08-06] MEDS: ACETAMINOPHEN 325 MG TABLET PO SCH ×5 (03:00→21:56)
[2019-08-06] MEDS: IBUPROFEN 200 MG TABLET PO PRN ×2 (04:00→13:34)
[2019-08-06] MEDS: LORazepam 1MG TABLET PO PRN ×2 (04:08→16:09)
[2019-08-06] MEDS: METOPROLOL TARTRATE 50 MG TABLET PO SCH ×2 (04:09→17:50)
[2019-08-06] MEDS: PANTOPROZOLE 40MG TABLET PO SCH (04:09)
[2019-08-06 07:20] LABS: CREATININE 0.33 mg/dL (0.55-1.02)
[2019-08-06 07:43] VITALS: BP 100/63
[2019-08-06 07:51] LABS: INTERNATIONAL NORMALIZED RATIO 1.65 (0.93-1.1)
[2019-08-06] MEDS: ERTAPENEM 1 GM in SODIUM CHLORIDE 0.9% 50 ML IV SCH (08:10)
[2019-08-06] MEDS: LACTOBACILLUS CHEW TABLET PO SCH ×3 (08:10→21:56)
[2019-08-06] MEDS: GABAPENTIN 300 MG CAPSULE PO SCH ×3 (08:11→21:56)
[2019-08-06] MEDS: ENOXAPARIN 60 MG/0.6 ML SQ SCH ×2 (08:11→21:56)
[2019-08-06] MEDS: ONDANSETRON 2MG/ML, 2ML IVPush PRN (08:29)
[2019-08-06] MEDS: SODIUM CHLORIDE FLUSH 10ML SYR IVF SCH ×2 (10:48→21:55)
[2019-08-06] MEDS: PROMETHAZINE 25 MG/ML, 1ML IM PRN (10:49)
[2019-08-06] MEDS: WARFARIN HIGH DOSE PROTOCOL XX SCH (11:45)
[2019-08-06 12:42] VITALS: BP 109/69
[2019-08-06 17:46] VITALS: BP 100/64
[2019-08-06] MEDS ORDERED: WARFARIN 7.5 MG TABLET PO-COUM SCH (18:00)
[2019-08-06 19:24] VITALS: BP 104/59
[2019-08-06 23:31] LABS: BASOPHILS # (AUTO) 0.04 x10^3/uL (0-0.1); BASOPHILS % (AUTO) 1 % (0-1); EOSINOPHILS # (AUTO) 0.97 x10^3/uL (0-0.4); EOSINOPHILS % (AUTO) 20 % (1-7); LYMPHOCYTES # (AUTO) 0.93 x10^3/uL (1-3.4); LYMPHOCYTES % (AUTO) 19 % (22-44); MD NO; MEAN CORPUSCULAR HGB CONC 32.5 g/dL (32.4-35.8); MEAN PLATELET VOLUME 7.9 fL (7.4-10.4); MONOCYTES # (AUTO) 0.41 x10^3/uL (0.2-0.8); MONOCYTES % (AUTO) 8 % (2-9); NEUTROPHILS # (AUTO) 2.57 x10^3/uL (1.8-6.8); NEUTROPHILS % (AUTO) 52 % (42-75); PLATELET COUNT 369 x10^3/uL (130-400); RED BLOOD COUNT 4.32 x10^6/uL (3.82-5.3); RED CELL DISTRIBUTION WIDTH 20.4 % (9.6-15.2)
[2019-08-07 00:31] VITALS: BP 112/77
[2019-08-07] MEDS: OXYcodone IR 5MG TABLET PO PRN ×3 (00:35→09:58)
[2019-08-07] MEDS: LORazepam 1MG TABLET PO PRN ×2 (01:51→09:58)
[2019-08-07] MEDS: ACETAMINOPHEN 325 MG TABLET PO SCH ×4 (03:00→21:28)
[2019-08-07] MEDS: PANTOPROZOLE 40MG TABLET PO SCH (06:18)
[2019-08-07] MEDS: METOPROLOL TARTRATE 50 MG TABLET PO SCH ×2 (06:18→17:10)
[2019-08-07] MEDS: IBUPROFEN 200 MG TABLET PO PRN (06:20)
[2019-08-07 06:21] VITALS: BP 101/60
[2019-08-07 06:41] LABS: PROTHROMBIN TIME 20.4 Seconds (9.6-11.5)
[2019-08-07 06:45] LABS: ALBUMIN 2.5 g/dL (3.4-5.0); ANION GAP 9 mmol/L (5-15); CALCIUM 8.7 mg/dL (8.5-10.1); CHLORIDE 107 mmol/L (98-107)
[2019-08-07 06:52] LABS: ALANINE AMINOTRANSFERASE 23 U/L (12-78); ALKALINE PHOSPHATASE 131 U/L (45-117); BILIRUBIN,TOTAL 0.2 mg/dL (0.2-1.0); TOTAL PROTEIN 6.6 g/dL (6.4-8.2)
[2019-08-07 06:54] VITALS: BP 104/67
[2019-08-07] MEDS: ERTAPENEM 1 GM in SODIUM CHLORIDE 0.9% 50 ML IV SCH (08:18)
[2019-08-07] MEDS: LACTOBACILLUS CHEW TABLET PO SCH ×3 (08:19→21:28)
[2019-08-07] MEDS: ONDANSETRON 2MG/ML, 2ML IVPush PRN (08:19)
[2019-08-07] MEDS: SODIUM CHLORIDE FLUSH 10ML SYR IVF SCH ×2 (08:19→21:00)
[2019-08-07] MEDS: GABAPENTIN 300 MG CAPSULE PO SCH ×3 (08:20→21:28)
[2019-08-07] MEDS: ENOXAPARIN 60 MG/0.6 ML SQ SCH ×2 (08:20→21:28)
[2019-08-07] MEDS: PROCHLORPERAZINE 5 MG/ML, 2ML IV PRN (11:59)
[2019-08-07] MEDS: WARFARIN HIGH DOSE PROTOCOL XX SCH (12:00)
[2019-08-07 13:50] VITALS: BP 103/61
[2019-08-07] MEDS ORDERED: WARFARIN 5 MG TABLET PO-COUM ONE (18:00)
[2019-08-07 19:50] VITALS: BP 99/64
[2019-08-08 01:54] VITALS: BP 99/56
[2019-08-08] MEDS: ACETAMINOPHEN 325 MG TABLET PO SCH ×4 (03:00→20:13)
[2019-08-08] MEDS: OXYcodone IR 5MG TABLET PO PRN ×2 (04:46→14:19)
[2019-08-08 06:00] VITALS: BP 111/72
[2019-08-08] MEDS: PANTOPROZOLE 40MG TABLET PO SCH (06:01)
[2019-08-08] MEDS: METOPROLOL TARTRATE 50 MG TABLET PO SCH (06:01)
[2019-08-08 06:51] LABS: INTERNATIONAL NORMALIZED RATIO 2.2 (0.93-1.1); PROTHROMBIN TIME 22.4 Seconds (9.6-11.5)
[2019-08-08 07:02] VITALS: BP 109/66
[2019-08-08] MEDS: ONDANSETRON 2MG/ML, 2ML IVPush PRN ×2 (07:53→17:47)
[2019-08-08] MEDS: GABAPENTIN 300 MG CAPSULE PO SCH ×3 (07:58→20:13)
[2019-08-08] MEDS: LORazepam 1MG TABLET PO PRN (07:58)
[2019-08-08] MEDS: LACTOBACILLUS CHEW TABLET PO SCH ×3 (07:59→20:13)
[2019-08-08] MEDS: ERTAPENEM 1 GM in SODIUM CHLORIDE 0.9% 50 ML IV SCH (08:00)
[2019-08-08] MEDS: SODIUM CHLORIDE FLUSH 10ML SYR IVF SCH ×2 (08:07→20:13)
[2019-08-08] MEDS: PROCHLORPERAZINE 5 MG/ML, 2ML IV PRN ×2 (10:14→20:56)
[2019-08-08] MEDS: IBUPROFEN 200 MG TABLET PO PRN (10:15)
[2019-08-08] MEDS: WARFARIN HIGH DOSE PROTOCOL XX SCH (12:00)
[2019-08-08 13:33] VITALS: BP 94/56
[2019-08-08] MEDS: METOPROLOL TARTRATE 25 MG TABLET PO SCH (17:44)
[2019-08-08 17:51] VITALS: BP 99/65
[2019-08-08] MEDS ORDERED: WARFARIN 5 MG TABLET PO-COUM ONE (18:00)
[2019-08-08 19:47] VITALS: BP 98/64
[2019-08-08] MEDS: SIMETHICONE 80 MG CHEW TAB PO SCH (20:13)
[2019-08-09 01:23] VITALS: BP 98/63
[2019-08-09] MEDS: OXYcodone IR 5MG TABLET PO PRN ×3 (01:32→18:32)
[2019-08-09] MEDS: ACETAMINOPHEN 325 MG TABLET PO SCH ×4 (02:36→22:19)
[2019-08-09 05:07] VITALS: BP 108/62
[2019-08-09] MEDS: METOPROLOL TARTRATE 25 MG TABLET PO SCH ×2 (05:08→17:30)
[2019-08-09] MEDS: PANTOPROZOLE 40MG TABLET PO SCH (05:09)
[2019-08-09] MEDS: ONDANSETRON 2MG/ML, 2ML IVPush PRN (06:05)
[2019-08-09] MEDS: IBUPROFEN 200 MG TABLET PO PRN (06:13)
[2019-08-09 06:23] LABS: INTERNATIONAL NORMALIZED RATIO 1.71 (0.93-1.1); PROTHROMBIN TIME 17.6 Seconds (9.6-11.5)
[2019-08-09] MEDS: ERTAPENEM 1 GM in SODIUM CHLORIDE 0.9% 50 ML IV SCH (08:26)
[2019-08-09] MEDS: GABAPENTIN 300 MG CAPSULE PO SCH ×3 (08:26→22:19)
[2019-08-09] MEDS: LACTOBACILLUS CHEW TABLET PO SCH ×3 (08:26→22:19)
[2019-08-09] MEDS: PROCHLORPERAZINE 5 MG/ML, 2ML IV PRN ×3 (08:26→22:42)
[2019-08-09] MEDS: SIMETHICONE 80 MG CHEW TAB PO SCH ×4 (08:26→22:19)
[2019-08-09] MEDS: SODIUM CHLORIDE FLUSH 10ML SYR IVF SCH ×2 (08:27→22:21)
[2019-08-09 09:20] VITALS: BP 100/60
[2019-08-09] MEDS: LORazepam 1MG TABLET PO PRN (10:07)
[2019-08-09] MEDS: WARFARIN HIGH DOSE PROTOCOL XX SCH (11:13)
[2019-08-09] MEDS ORDERED: WARFARIN 7.5 MG TABLET PO-COUM ONE (12:30)
[2019-08-09 13:05] VITALS: BP 116/73
[2019-08-09] MEDS ORDERED: DOCUSATE 100 MG CAPSULE PO PRN (16:00)
[2019-08-09 19:16] VITALS: BP 102/69
[2019-08-10] MEDS: LORazepam 1MG TABLET PO PRN ×2 (00:14→10:03)
[2019-08-10 02:30] VITALS: BP 99/55
[2019-08-10] MEDS: ACETAMINOPHEN 325 MG TABLET PO SCH ×4 (02:46→21:33)
[2019-08-10] MEDS: OXYcodone IR 5MG TABLET PO PRN ×3 (02:47→21:34)
[2019-08-10] MEDS: PANTOPROZOLE 40MG TABLET PO SCH (06:19)
[2019-08-10] MEDS: METOPROLOL TARTRATE 25 MG TABLET PO SCH ×2 (06:20→17:57)
[2019-08-10 07:08] LABS: INTERNATIONAL NORMALIZED RATIO 1.81 (0.93-1.1); PROTHROMBIN TIME 18.6 Seconds (9.6-11.5)
[2019-08-10] MEDS: IBUPROFEN 200 MG TABLET PO PRN (07:51)
[2019-08-10] MEDS: PROCHLORPERAZINE 5 MG/ML, 2ML IV PRN ×2 (07:51→21:34)
[2019-08-10] MEDS: SODIUM CHLORIDE FLUSH 10ML SYR IVF SCH ×2 (09:00→21:35)
[2019-08-10] MEDS: ERTAPENEM 1 GM in SODIUM CHLORIDE 0.9% 50 ML IV SCH (09:18)
[2019-08-10] MEDS: SIMETHICONE 80 MG CHEW TAB PO SCH ×4 (09:18→21:33)
[2019-08-10] MEDS: LACTOBACILLUS CHEW TABLET PO SCH ×3 (09:19→21:33)
[2019-08-10] MEDS: GABAPENTIN 300 MG CAPSULE PO SCH ×3 (09:19→21:34)
[2019-08-10 09:31] VITALS: BP 113/73
[2019-08-10] MEDS: MAGNESIUM HYDROXIDE 8%, 30ML UDC PO SCH (10:30)
[2019-08-10] MEDS: WARFARIN HIGH DOSE PROTOCOL XX SCH (12:00)
[2019-08-10 15:24] VITALS: BP 105/71
[2019-08-10] MEDS ORDERED: WARFARIN 7.5 MG TABLET PO-COUM ONE (18:00)
[2019-08-10 20:01] VITALS: BP 105/71
[2019-08-11 00:59] VITALS: BP 104/72
[2019-08-11] MEDS: PROCHLORPERAZINE 5 MG/ML, 2ML IV PRN ×3 (03:29→17:11)
[2019-08-11] MEDS: ACETAMINOPHEN 325 MG TABLET PO SCH ×4 (03:30→20:30)
[2019-08-11] MEDS: METOPROLOL TARTRATE 25 MG TABLET PO SCH ×2 (05:53→17:11)
[2019-08-11] MEDS: PANTOPROZOLE 40MG TABLET PO SCH (05:54)
[2019-08-11] MEDS: OXYcodone IR 5MG TABLET PO PRN ×3 (05:54→22:12)
[2019-08-11 06:13] LABS: INTERNATIONAL NORMALIZED RATIO 1.42 (0.93-1.1); PROTHROMBIN TIME 14.7 Seconds (9.6-11.5)
[2019-08-11] MEDS: ERTAPENEM 1 GM in SODIUM CHLORIDE 0.9% 50 ML IV SCH (07:51)
[2019-08-11] MEDS: GABAPENTIN 300 MG CAPSULE PO SCH ×3 (07:52→20:30)
[2019-08-11] MEDS: MAGNESIUM HYDROXIDE 8%, 30ML UDC PO SCH (07:52)
[2019-08-11] MEDS: SODIUM CHLORIDE FLUSH 10ML SYR IVF SCH ×2 (07:52→20:30)
[2019-08-11] MEDS: LACTOBACILLUS CHEW TABLET PO SCH ×3 (07:52→20:30)
[2019-08-11] MEDS: SIMETHICONE 80 MG CHEW TAB PO SCH ×4 (07:52→20:30)
[2019-08-11 08:07] VITALS: BP 102/65
[2019-08-11] MEDS: WARFARIN HIGH DOSE PROTOCOL XX SCH (12:00)
[2019-08-11] MEDS: LORazepam 1MG TABLET PO PRN (12:13)
[2019-08-11] MEDS: IBUPROFEN 200 MG TABLET PO PRN (12:13)
[2019-08-11 14:55] VITALS: BP 110/75
[2019-08-11] MEDS ORDERED: WARFARIN 10 MG TABLET PO-COUM ONE (18:00)
[2019-08-11 21:07] VITALS: BP 102/66
[2019-08-12] MEDS: IBUPROFEN 200 MG TABLET PO PRN (01:40)
[2019-08-12] MEDS: PROCHLORPERAZINE 5 MG/ML, 2ML IV PRN ×4 (01:41→22:11)
[2019-08-12 02:28] VITALS: BP 101/64
[2019-08-12] MEDS: ACETAMINOPHEN 325 MG TABLET PO SCH ×4 (03:00→21:53)
[2019-08-12 05:51] LABS: INTERNATIONAL NORMALIZED RATIO 1.3 (0.93-1.1); PROTHROMBIN TIME 13.5 Seconds (9.6-11.5)
[2019-08-12] MEDS: METOPROLOL TARTRATE 25 MG TABLET PO SCH ×2 (06:13→18:22)
[2019-08-12] MEDS: OXYcodone IR 5MG TABLET PO PRN ×3 (06:13→23:27)
[2019-08-12] MEDS: PANTOPROZOLE 40MG TABLET PO SCH (06:13)
[2019-08-12 07:31] VITALS: BP 92/58
[2019-08-12] MEDS: GABAPENTIN 300 MG CAPSULE PO SCH ×3 (08:45→21:54)
[2019-08-12] MEDS: LACTOBACILLUS CHEW TABLET PO SCH ×3 (08:45→21:54)
[2019-08-12] MEDS: MAGNESIUM HYDROXIDE 8%, 30ML UDC PO SCH (08:45)
[2019-08-12] MEDS: SIMETHICONE 80 MG CHEW TAB PO SCH ×4 (08:45→21:53)
[2019-08-12] MEDS: ERTAPENEM 1 GM in SODIUM CHLORIDE 0.9% 50 ML IV SCH (08:45)
[2019-08-12] MEDS: SODIUM CHLORIDE FLUSH 10ML SYR IVF SCH ×2 (08:46→21:53)
[2019-08-12] MEDS: WARFARIN HIGH DOSE PROTOCOL XX SCH (12:00)
[2019-08-12 13:24] VITALS: BP 107/68
[2019-08-12] MEDS ORDERED: WARFARIN 3 MG TABLET PO-COUM ONE (18:00)
[2019-08-12] MEDS ORDERED: WARFARIN 10 MG TABLET PO-COUM ONE (18:11)
[2019-08-12] MEDS ORDERED: WARFARIN 2 MG TABLET PO-COUM ONE (18:11)
[2019-08-12 18:20] VITALS: BP 115/69
[2019-08-12 19:56] VITALS: BP 102/67
[2019-08-13 00:37] VITALS: BP 105/68
[2019-08-13 01:52] VITALS: BP 104/64
[2019-08-13] MEDS: LORazepam 1MG TABLET PO PRN (01:59)
[2019-08-13] MEDS: ACETAMINOPHEN 325 MG TABLET PO SCH ×4 (03:39→20:17)
[2019-08-13 05:25] LABS: INTERNATIONAL NORMALIZED RATIO 1.72 (0.93-1.1); PROTHROMBIN TIME 17.7 Seconds (9.6-11.5)
[2019-08-13 06:10] VITALS: BP 103/67
[2019-08-13] MEDS: METOPROLOL TARTRATE 25 MG TABLET PO SCH ×2 (06:14→18:18)
[2019-08-13] MEDS: PANTOPROZOLE 40MG TABLET PO SCH (06:15)
[2019-08-13] MEDS: PROCHLORPERAZINE 5 MG/ML, 2ML IV PRN ×3 (06:15→20:14)
[2019-08-13] MEDS: OXYcodone IR 5MG TABLET PO PRN ×3 (06:16→20:19)
[2019-08-13] MEDS: ERTAPENEM 1 GM in SODIUM CHLORIDE 0.9% 50 ML IV SCH (08:51)
[2019-08-13] MEDS: SIMETHICONE 80 MG CHEW TAB PO SCH ×4 (08:51→20:18)
[2019-08-13] MEDS: GABAPENTIN 300 MG CAPSULE PO SCH ×3 (08:52→20:17)
[2019-08-13] MEDS: MAGNESIUM HYDROXIDE 8%, 30ML UDC PO SCH (08:52)
[2019-08-13] MEDS: LACTOBACILLUS CHEW TABLET PO SCH ×3 (08:52→20:17)
[2019-08-13] MEDS: SODIUM CHLORIDE FLUSH 10ML SYR IVF SCH ×2 (08:56→20:17)
[2019-08-13] MEDS: WARFARIN HIGH DOSE PROTOCOL XX SCH (12:00)
[2019-08-13 14:22] VITALS: BP 121/70
[2019-08-13] MEDS ORDERED: WARFARIN 3 MG TABLET PO-COUM ONE (18:00)
[2019-08-13] MEDS ORDERED: WARFARIN 5 MG TABLET PO-COUM ONE (18:12)
[2019-08-13] MEDS ORDERED: WARFARIN 1 MG TABLET PO-COUM ONE (18:14)
[2019-08-13 19:23] VITALS: BP 100/62
[2019-08-14 01:42] VITALS: BP 116/76
[2019-08-14] MEDS: PROCHLORPERAZINE 5 MG/ML, 2ML IV PRN ×4 (02:14→21:15)
[2019-08-14] MEDS: OXYcodone IR 5MG TABLET PO PRN ×4 (02:15→21:14)
[2019-08-14] MEDS: ACETAMINOPHEN 325 MG TABLET PO SCH ×4 (02:15→21:15)
[2019-08-14 05:24] VITALS: BP 120/71
[2019-08-14] MEDS: METOPROLOL TARTRATE 25 MG TABLET PO SCH ×2 (05:27→17:27)
[2019-08-14] MEDS: LORazepam 1MG TABLET PO PRN ×2 (05:28→17:41)
[2019-08-14] MEDS: IBUPROFEN 200 MG TABLET PO PRN (05:28)
[2019-08-14] MEDS: PANTOPROZOLE 40MG TABLET PO SCH (05:30)
[2019-08-14 05:47] LABS: BASOPHILS # (AUTO) 0.05 x10^3/uL (0-0.1); BASOPHILS % (AUTO) 1 % (0-1); EOSINOPHILS # (AUTO) 0.49 x10^3/uL (0-0.4); EOSINOPHILS % (AUTO) 9 % (1-7); LYMPHOCYTES % (AUTO) 21 % (22-44); MD NO; MEAN CORPUSCULAR HEMOGLOBIN 26.9 pg (27.0-34.8); MEAN CORPUSCULAR HGB CONC 32.3 g/dL (32.4-35.8); MEAN CORPUSCULAR VOLUME 83.3 fL (80-100); MEAN PLATELET VOLUME 7.8 fL (7.4-10.4); MONOCYTES # (AUTO) 0.34 x10^3/uL (0.2-0.8); MONOCYTES % (AUTO) 6 % (2-9); NEUTROPHILS # (AUTO) 3.54 x10^3/uL (1.8-6.8); NEUTROPHILS % (AUTO) 63 % (42-75); PLATELET COUNT 358 x10^3/uL (130-400); RED BLOOD COUNT 4.42 x10^6/uL (3.82-5.3); RED CELL DISTRIBUTION WIDTH 19.6 % (9.6-15.2)
[2019-08-14 05:55] LABS: INTERNATIONAL NORMALIZED RATIO 2.71 (0.93-1.1); PROTHROMBIN TIME 27.4 Seconds (9.6-11.5)
[2019-08-14 05:59] LABS: HCT (SEDRATE) 36.8 % (34.6-47.8)
[2019-08-14 06:03] LABS: ALBUMIN 2.7 g/dL (3.4-5.0); ANION GAP 5 mmol/L (5-15); CALCIUM 9.2 mg/dL (8.5-10.1); CHLORIDE 107 mmol/L (98-107)
[2019-08-14 06:48] LABS: CREATININE 0.33 mg/dL (0.55-1.02)
[2019-08-14 06:49] LABS: ALANINE AMINOTRANSFERASE 76 U/L (12-78); ALKALINE PHOSPHATASE 129 U/L (45-117); BILIRUBIN,TOTAL 0.4 mg/dL (0.2-1.0); TOTAL PROTEIN 6.9 g/dL (6.4-8.2)
[2019-08-14] MEDS: ERTAPENEM 1 GM in SODIUM CHLORIDE 0.9% 50 ML IV SCH (08:46)
[2019-08-14] MEDS: SODIUM CHLORIDE FLUSH 10ML SYR IVF SCH ×2 (08:47→21:00)
[2019-08-14] MEDS: MAGNESIUM HYDROXIDE 8%, 30ML UDC PO SCH (08:50)
[2019-08-14] MEDS: LACTOBACILLUS CHEW TABLET PO SCH ×3 (08:50→21:14)
[2019-08-14] MEDS: GABAPENTIN 300 MG CAPSULE PO SCH ×3 (08:51→21:13)
[2019-08-14] MEDS: SIMETHICONE 80 MG CHEW TAB PO SCH ×4 (08:51→21:14)
[2019-08-14 09:54] VITALS: BP 96/66
[2019-08-14] MEDS: WARFARIN HIGH DOSE PROTOCOL XX SCH (12:00)
[2019-08-14 13:40] VITALS: BP 102/63
[2019-08-14] MEDS ORDERED: WARFARIN 5 MG TABLET PO-COUM ONE (18:00)
[2019-08-14 19:15] VITALS: BP 92/53
[2019-08-14] MEDS: DOCUSATE 100 MG CAPSULE PO SCH (21:15)
[2019-08-15 02:59] VITALS: BP 100/66
[2019-08-15] MEDS: OXYcodone IR 5MG TABLET PO PRN ×3 (03:02→16:10)
[2019-08-15] MEDS: ACETAMINOPHEN 325 MG TABLET PO SCH ×4 (03:03→20:41)
[2019-08-15] MEDS: PANTOPROZOLE 40MG TABLET PO SCH (05:43)
[2019-08-15] MEDS: METOPROLOL TARTRATE 25 MG TABLET PO SCH ×2 (05:43→16:10)
[2019-08-15 05:50] LABS: INTERNATIONAL NORMALIZED RATIO 3.34 (0.93-1.1); PROTHROMBIN TIME 33.5 Seconds (9.6-11.5)
[2019-08-15 07:11] VITALS: BP 93/56
[2019-08-15] MEDS ORDERED: HOLD COUMADIN MC PRN (08:00)
[2019-08-15] MEDS: LACTOBACILLUS CHEW TABLET PO SCH ×3 (08:18→20:41)
[2019-08-15] MEDS: GABAPENTIN 300 MG CAPSULE PO SCH ×3 (08:18→20:41)
[2019-08-15] MEDS: DOCUSATE 100 MG CAPSULE PO SCH ×2 (08:18→20:41)
[2019-08-15] MEDS: ERTAPENEM 1 GM in SODIUM CHLORIDE 0.9% 50 ML IV SCH (08:18)
[2019-08-15] MEDS: SIMETHICONE 80 MG CHEW TAB PO SCH ×4 (08:18→20:41)
[2019-08-15] MEDS: MAGNESIUM HYDROXIDE 8%, 30ML UDC PO SCH (08:18)
[2019-08-15] MEDS: SODIUM CHLORIDE FLUSH 10ML SYR IVF SCH ×2 (08:27→20:42)
[2019-08-15] MEDS: PROCHLORPERAZINE 5 MG/ML, 2ML IV PRN ×2 (08:59→21:03)
[2019-08-15] MEDS: WARFARIN HIGH DOSE PROTOCOL XX SCH (12:00)
[2019-08-15] MEDS: IBUPROFEN 200 MG TABLET PO PRN (14:22)
[2019-08-15 15:07] VITALS: BP 110/56
[2019-08-15 19:48] VITALS: BP 95/64
[2019-08-15] MEDS: LORazepam 1MG TABLET PO PRN (21:03)
[2019-08-16] MEDS: OXYcodone IR 5MG TABLET PO PRN ×4 (01:41→21:42)
[2019-08-16] MEDS: ACETAMINOPHEN 325 MG TABLET PO SCH ×4 (01:41→22:36)
[2019-08-16 02:32] VITALS: BP 98/65
[2019-08-16] MEDS: DIPHENHYDRAMINE 25 MG CAPSULE PO PRN ×2 (03:16→10:50)
[2019-08-16 06:05] LABS: INTERNATIONAL NORMALIZED RATIO 2.26 (0.93-1.1)
[2019-08-16] MEDS: PANTOPROZOLE 40MG TABLET PO SCH (06:13)
[2019-08-16] MEDS: METOPROLOL TARTRATE 25 MG TABLET PO SCH ×2 (06:14→16:43)
[2019-08-16] MEDS: IBUPROFEN 200 MG TABLET PO PRN (06:25)
[2019-08-16] MEDS: LORazepam 1MG TABLET PO PRN ×2 (06:25→17:35)
[2019-08-16 07:34] VITALS: BP 126/83
[2019-08-16] MEDS: DOCUSATE 100 MG CAPSULE PO SCH ×2 (07:57→21:39)
[2019-08-16] MEDS: LACTOBACILLUS CHEW TABLET PO SCH ×3 (07:58→21:39)
[2019-08-16] MEDS: ONDANSETRON 2MG/ML, 2ML IVPush PRN ×2 (07:58→21:40)
[2019-08-16] MEDS: MAGNESIUM HYDROXIDE 8%, 30ML UDC PO SCH (07:58)
[2019-08-16] MEDS: SIMETHICONE 80 MG CHEW TAB PO SCH ×4 (07:58→21:39)
[2019-08-16] MEDS: ERTAPENEM 1 GM in SODIUM CHLORIDE 0.9% 50 ML IV SCH (07:58)
[2019-08-16] MEDS: GABAPENTIN 300 MG CAPSULE PO SCH ×3 (07:58→21:39)
[2019-08-16] MEDS: SODIUM CHLORIDE FLUSH 10ML SYR IVF SCH ×2 (08:03→21:39)
[2019-08-16] MEDS: CEPHALEXIN 500 MG CAPSULE PO SCH ×2 (10:00→21:40)
[2019-08-16] MEDS: PROCHLORPERAZINE 5 MG/ML, 2ML IV PRN ×2 (10:57→16:49)
[2019-08-16] MEDS: WARFARIN HIGH DOSE PROTOCOL XX SCH (12:00)
[2019-08-16 12:26] VITALS: BP 112/73
[2019-08-16] MEDS ORDERED: WARFARIN 5 MG TABLET PO-COUM ONE (18:00)
[2019-08-16 20:31] VITALS: BP 96/60
[2019-08-16 21:33] VITALS: BP 97/54
[2019-08-17 00:04] VITALS: BP 95/62
[2019-08-17 02:20] VITALS: BP 100/63
[2019-08-17] MEDS: PROCHLORPERAZINE 5 MG/ML, 2ML IV PRN (02:23)
[2019-08-17 05:04] VITALS: BP 105/67
[2019-08-17] MEDS: OXYcodone IR 5MG TABLET PO PRN ×4 (05:07→22:38)
[2019-08-17] MEDS: METOPROLOL TARTRATE 25 MG TABLET PO SCH ×2 (05:07→18:00)
[2019-08-17] MEDS: PANTOPROZOLE 40MG TABLET PO SCH (05:07)
[2019-08-17] MEDS: ACETAMINOPHEN 325 MG TABLET PO SCH ×4 (05:07→22:38)
[2019-08-17] MEDS: ONDANSETRON 2MG/ML, 2ML IVPush PRN ×2 (05:12→20:43)
[2019-08-17 06:33] LABS: INTERNATIONAL NORMALIZED RATIO 1.76 (0.93-1.1); PROTHROMBIN TIME 18.1 Seconds (9.6-11.5)
[2019-08-17 07:04] VITALS: BP 105/71
[2019-08-17] MEDS: SIMETHICONE 80 MG CHEW TAB PO SCH ×4 (08:17→20:42)
[2019-08-17] MEDS: MAGNESIUM HYDROXIDE 8%, 30ML UDC PO SCH (08:20)
[2019-08-17] MEDS: DOCUSATE 100 MG CAPSULE PO SCH ×2 (08:20→20:42)
[2019-08-17] MEDS: SODIUM CHLORIDE FLUSH 10ML SYR IVF SCH ×2 (08:20→20:42)
[2019-08-17] MEDS: LACTOBACILLUS CHEW TABLET PO SCH ×3 (08:20→20:42)
[2019-08-17] MEDS: CEPHALEXIN 500 MG CAPSULE PO SCH ×2 (08:21→22:38)
[2019-08-17] MEDS: GABAPENTIN 300 MG CAPSULE PO SCH ×3 (08:23→20:43)
[2019-08-17] MEDS: DIPHENHYDRAMINE 25 MG CAPSULE PO PRN ×2 (08:50→18:39)
[2019-08-17] MEDS: PROCHLORPERAZINE 5 MG TABLET PO PRN ×3 (08:50→22:38)
[2019-08-17] MEDS: LORazepam 1MG TABLET PO PRN (10:01)
[2019-08-17] MEDS: WARFARIN HIGH DOSE PROTOCOL XX SCH (12:00)
[2019-08-17 13:22] VITALS: BP 99/71
[2019-08-17] MEDS: IBUPROFEN 200 MG TABLET PO PRN (15:01)
[2019-08-17] MEDS ORDERED: WARFARIN 7.5 MG TABLET PO-COUM SCH (18:00)
[2019-08-17 18:58] VITALS: BP 97/63
[2019-08-18 01:41] VITALS: BP 100/58
[2019-08-18] MEDS: LORazepam 1MG TABLET PO PRN ×2 (01:54→15:28)
[2019-08-18 05:03] VITALS: BP 107/68
[2019-08-18 05:05] LABS: INTERNATIONAL NORMALIZED RATIO 1.5 (0.93-1.1); PROTHROMBIN TIME 15.5 Seconds (9.6-11.5)
[2019-08-18] MEDS: ACETAMINOPHEN 325 MG TABLET PO SCH ×4 (05:06→22:06)
[2019-08-18] MEDS: PROCHLORPERAZINE 5 MG TABLET PO PRN ×2 (05:07→20:32)
[2019-08-18] MEDS: METOPROLOL TARTRATE 25 MG TABLET PO SCH ×2 (05:07→17:03)
[2019-08-18] MEDS: PANTOPROZOLE 40MG TABLET PO SCH (05:07)
[2019-08-18] MEDS: OXYcodone IR 5MG TABLET PO PRN ×3 (05:07→17:03)
[2019-08-18 06:57] VITALS: BP 101/67
[2019-08-18] MEDS: SIMETHICONE 80 MG CHEW TAB PO SCH ×4 (08:42→20:33)
[2019-08-18] MEDS: DOCUSATE 100 MG CAPSULE PO SCH ×2 (08:42→20:33)
[2019-08-18] MEDS: LACTOBACILLUS CHEW TABLET PO SCH ×3 (08:42→20:33)
[2019-08-18] MEDS: GABAPENTIN 300 MG CAPSULE PO SCH ×3 (08:42→20:33)
[2019-08-18] MEDS: IBUPROFEN 200 MG TABLET PO PRN ×2 (08:43→15:28)
[2019-08-18] MEDS: MAGNESIUM HYDROXIDE 8%, 30ML UDC PO SCH (08:43)
[2019-08-18] MEDS: CEPHALEXIN 500 MG CAPSULE PO SCH ×2 (08:43→22:06)
[2019-08-18] MEDS: SODIUM CHLORIDE FLUSH 10ML SYR IVF SCH ×2 (08:44→20:33)
[2019-08-18] MEDS: ONDANSETRON 2MG/ML, 2ML IVPush PRN (09:54)
[2019-08-18] MEDS: METHOCARBAMOL 750 MG TABLET PO PRN ×2 (10:21→18:08)
[2019-08-18] MEDS: WARFARIN HIGH DOSE PROTOCOL XX SCH (11:06)
[2019-08-18 13:35] VITALS: BP 97/62
[2019-08-18] MEDS ORDERED: WARFARIN 10 MG TABLET PO-COUM SCH (18:00)
[2019-08-18 18:56] VITALS: BP 120/79
[2019-08-18] MEDS: DIPHENHYDRAMINE 25 MG CAPSULE PO PRN (20:33)
[2019-08-19] MEDS: OXYcodone IR 5MG TABLET PO PRN ×4 (00:22→20:13)
[2019-08-19 00:35] VITALS: BP 98/64
[2019-08-19] MEDS: IBUPROFEN 200 MG TABLET PO PRN (04:51)
[2019-08-19] MEDS: LORazepam 1MG TABLET PO PRN ×2 (04:51→23:10)
[2019-08-19] MEDS: METHOCARBAMOL 750 MG TABLET PO PRN ×3 (04:51→22:57)
[2019-08-19] MEDS: ACETAMINOPHEN 325 MG TABLET PO SCH ×4 (05:00→22:58)
[2019-08-19] MEDS: PROCHLORPERAZINE 5 MG TABLET PO PRN (05:01)
[2019-08-19 05:31] VITALS: BP 94/63
[2019-08-19] MEDS: PANTOPROZOLE 40MG TABLET PO SCH (05:34)
[2019-08-19] MEDS: METOPROLOL TARTRATE 25 MG TABLET PO SCH ×2 (05:34→17:29)
[2019-08-19 05:44] LABS: INTERNATIONAL NORMALIZED RATIO 1.94 (0.93-1.1); PROTHROMBIN TIME 19.9 Seconds (9.6-11.5)
[2019-08-19] MEDS: LACTOBACILLUS CHEW TABLET PO SCH ×3 (08:10→20:11)
[2019-08-19] MEDS: DOCUSATE 100 MG CAPSULE PO SCH ×2 (08:10→20:12)
[2019-08-19] MEDS: SIMETHICONE 80 MG CHEW TAB PO SCH ×4 (08:10→20:12)
[2019-08-19] MEDS: MAGNESIUM HYDROXIDE 8%, 30ML UDC PO SCH (08:10)
[2019-08-19] MEDS: GABAPENTIN 300 MG CAPSULE PO SCH ×3 (08:10→20:11)
[2019-08-19] MEDS: SODIUM CHLORIDE FLUSH 10ML SYR IVF SCH ×2 (08:12→21:00)
[2019-08-19] MEDS: CEPHALEXIN 500 MG CAPSULE PO SCH ×2 (09:26→20:12)
[2019-08-19 11:02] VITALS: BP 92/58
[2019-08-19] MEDS: WARFARIN HIGH DOSE PROTOCOL XX SCH (11:28)
[2019-08-19 15:01] VITALS: BP 93/59
[2019-08-19] MEDS: PROMETHAZINE 25MG TABLET PO PRN ×2 (17:29→22:57)
[2019-08-19] MEDS ORDERED: WARFARIN 7.5 MG TABLET PO-COUM SCH (18:00)
[2019-08-19 18:48] VITALS: BP 103/57
[2019-08-20 00:38] VITALS: BP 94/59
[2019-08-20] MEDS: OXYcodone IR 5MG TABLET PO PRN ×4 (02:16→22:43)
[2019-08-20] MEDS: DIPHENHYDRAMINE 25 MG CAPSULE PO PRN (03:38)
[2019-08-20] MEDS: PROCHLORPERAZINE 5 MG TABLET PO PRN ×2 (03:57→12:29)
[2019-08-20] MEDS: ACETAMINOPHEN 325 MG TABLET PO SCH ×4 (05:19→22:43)
[2019-08-20] MEDS: METHOCARBAMOL 750 MG TABLET PO PRN ×3 (05:19→22:43)
[2019-08-20] MEDS: PANTOPROZOLE 40MG TABLET PO SCH (05:19)
[2019-08-20] MEDS: METOPROLOL TARTRATE 25 MG TABLET PO SCH ×2 (05:20→17:27)
[2019-08-20 06:13] LABS: INTERNATIONAL NORMALIZED RATIO 2.91 (0.93-1.1); PROTHROMBIN TIME 29.3 Seconds (9.6-11.5)
[2019-08-20 07:53] VITALS: BP 99/67
[2019-08-20] MEDS: SODIUM CHLORIDE FLUSH 10ML SYR IVF SCH ×2 (08:51→21:06)
[2019-08-20] MEDS: SIMETHICONE 80 MG CHEW TAB PO SCH ×4 (08:51→20:53)
[2019-08-20] MEDS: GABAPENTIN 300 MG CAPSULE PO SCH ×3 (08:52→20:53)
[2019-08-20] MEDS: MAGNESIUM HYDROXIDE 8%, 30ML UDC PO SCH (08:52)
[2019-08-20] MEDS: CEPHALEXIN 500 MG CAPSULE PO SCH ×2 (08:52→20:54)
[2019-08-20] MEDS: LACTOBACILLUS CHEW TABLET PO SCH ×3 (08:52→20:53)
[2019-08-20] MEDS: DOCUSATE 100 MG CAPSULE PO SCH ×2 (08:52→20:53)
[2019-08-20] MEDS: PROMETHAZINE 25MG TABLET PO PRN ×2 (08:53→21:06)
[2019-08-20] MEDS: WARFARIN HIGH DOSE PROTOCOL XX SCH (12:00)
[2019-08-20] MEDS: LORazepam 1MG TABLET PO PRN (12:28)
[2019-08-20] MEDS: IBUPROFEN 200 MG TABLET PO PRN ×2 (12:29→21:07)
[2019-08-20 13:35] VITALS: BP 94/58
[2019-08-20 17:23] VITALS: BP 156/91
[2019-08-20] MEDS ORDERED: WARFARIN 5 MG TABLET PO-COUM SCH (18:00)
[2019-08-20 19:17] VITALS: BP 99/68
[2019-08-20 21:08] VITALS: BP 94/60
[2019-08-21 02:18] VITALS: BP 97/66
[2019-08-21] MEDS: OXYcodone IR 5MG TABLET PO PRN ×3 (04:45→20:17)
[2019-08-21] MEDS: ACETAMINOPHEN 325 MG TABLET PO SCH ×4 (04:45→22:08)
[2019-08-21 06:10] LABS: INTERNATIONAL NORMALIZED RATIO 2.6 (0.93-1.1); PROTHROMBIN TIME 26.3 Seconds (9.6-11.5)
[2019-08-21 06:18] VITALS: BP 106/69
[2019-08-21] MEDS: METHOCARBAMOL 750 MG TABLET PO PRN ×2 (06:22→12:48)
[2019-08-21] MEDS: METOPROLOL TARTRATE 25 MG TABLET PO SCH ×2 (06:22→17:27)
[2019-08-21] MEDS: PANTOPROZOLE 40MG TABLET PO SCH (06:22)
[2019-08-21 07:59] VITALS: BP 93/53
[2019-08-21] MEDS: MAGNESIUM HYDROXIDE 8%, 30ML UDC PO SCH (08:45)
[2019-08-21] MEDS: LACTOBACILLUS CHEW TABLET PO SCH ×3 (08:45→20:16)
[2019-08-21] MEDS: SIMETHICONE 80 MG CHEW TAB PO SCH ×4 (08:45→20:16)
[2019-08-21] MEDS: CEPHALEXIN 500 MG CAPSULE PO SCH ×2 (08:45→22:08)
[2019-08-21] MEDS: LORazepam 1MG TABLET PO PRN (08:46)
[2019-08-21] MEDS: DOCUSATE 100 MG CAPSULE PO SCH ×2 (08:46→20:16)
[2019-08-21] MEDS: GABAPENTIN 300 MG CAPSULE PO SCH ×3 (08:46→20:16)
[2019-08-21] MEDS: PROMETHAZINE 25MG TABLET PO PRN (08:50)
[2019-08-21] MEDS: SODIUM CHLORIDE FLUSH 10ML SYR IVF SCH ×2 (08:52→20:18)
[2019-08-21] MEDS: PROCHLORPERAZINE 5 MG TABLET PO PRN (11:31)
[2019-08-21] MEDS: WARFARIN HIGH DOSE PROTOCOL XX SCH (12:00)
[2019-08-21 13:20] VITALS: BP 100/61
[2019-08-21] MEDS: IBUPROFEN 200 MG TABLET PO PRN (17:27)
[2019-08-21] MEDS ORDERED: WARFARIN 7.5 MG TABLET PO-COUM ONE (18:00)
[2019-08-21 19:45] VITALS: BP 101/63
[2019-08-21] MEDS: MELATONIN 5 MG TABLET PO PRN (20:17)
[2019-08-22 02:43] VITALS: BP 104/70
[2019-08-22 03:48] VITALS: BP 108/71
[2019-08-22] MEDS: OXYcodone IR 5MG TABLET PO PRN ×4 (03:56→21:07)
[2019-08-22] MEDS: METHOCARBAMOL 750 MG TABLET PO PRN ×2 (04:08→18:29)
[2019-08-22 05:12] VITALS: BP 110/71
[2019-08-22] MEDS: PROMETHAZINE 25MG TABLET PO PRN ×3 (05:14→18:30)
[2019-08-22] MEDS: PANTOPROZOLE 40MG TABLET PO SCH (05:14)
[2019-08-22] MEDS: METOPROLOL TARTRATE 25 MG TABLET PO SCH ×2 (05:14→18:13)
[2019-08-22] MEDS: ACETAMINOPHEN 325 MG TABLET PO SCH ×4 (05:14→23:35)
[2019-08-22 06:50] LABS: INTERNATIONAL NORMALIZED RATIO 2.26 (0.93-1.1)
[2019-08-22 07:52] VITALS: BP 95/63
[2019-08-22] MEDS: MAGNESIUM HYDROXIDE 8%, 30ML UDC PO SCH (09:07)
[2019-08-22] MEDS: IBUPROFEN 200 MG TABLET PO PRN ×2 (09:07→18:30)
[2019-08-22] MEDS: LORazepam 1MG TABLET PO PRN (09:07)
[2019-08-22] MEDS: LACTOBACILLUS CHEW TABLET PO SCH ×3 (09:08→21:06)
[2019-08-22] MEDS: SIMETHICONE 80 MG CHEW TAB PO SCH ×4 (09:08→21:06)
[2019-08-22] MEDS: GABAPENTIN 300 MG CAPSULE PO SCH ×3 (09:08→21:07)
[2019-08-22] MEDS: DOCUSATE 100 MG CAPSULE PO SCH ×2 (09:08→21:06)
[2019-08-22] MEDS: SODIUM CHLORIDE FLUSH 10ML SYR IVF SCH ×2 (09:08→21:08)
[2019-08-22] MEDS: CEPHALEXIN 500 MG CAPSULE PO SCH ×2 (10:42→22:05)
[2019-08-22 11:19] LABS: BASOPHILS # (AUTO) 0.06 x10^3/uL (0-0.1); BASOPHILS % (AUTO) 1 % (0-1); EOSINOPHILS # (AUTO) 0.59 x10^3/uL (0-0.4); EOSINOPHILS % (AUTO) 9 % (1-7); LYMPHOCYTES # (AUTO) 1.12 x10^3/uL (1-3.4); LYMPHOCYTES % (AUTO) 18 % (22-44); MD NO; MEAN CORPUSCULAR HEMOGLOBIN 26.6 pg (27.0-34.8); MEAN CORPUSCULAR HGB CONC 32.8 g/dL (32.4-35.8); MEAN CORPUSCULAR VOLUME 81.1 fL (80-100); MEAN PLATELET VOLUME 8.2 fL (7.4-10.4); MONOCYTES # (AUTO) 0.52 x10^3/uL (0.2-0.8); MONOCYTES % (AUTO) 8 % (2-9); NEUTROPHILS # (AUTO) 4.06 x10^3/uL (1.8-6.8); NEUTROPHILS % (AUTO) 64 % (42-75); PLATELET COUNT 310 x10^3/uL (130-400); RED BLOOD COUNT 4.54 x10^6/uL (3.82-5.3); RED CELL DISTRIBUTION WIDTH 18.7 % (9.6-15.2)
[2019-08-22 11:20] LABS: HCT (SEDRATE) 36.8 % (34.6-47.8)
[2019-08-22 11:32] LABS: ALANINE AMINOTRANSFERASE 48 U/L (12-78); ALBUMIN 3.1 g/dL (3.4-5.0); ANION GAP 7 mmol/L (5-15); C-REACTIVE PROTEIN, QUANT 0.23 mg/dL (0.02-0.49); CHLORIDE 105 mmol/L (98-107); CREATININE 0.43 mg/dL (0.55-1.02)
[2019-08-22 11:34] LABS: ALKALINE PHOSPHATASE 124 U/L (45-117); BILIRUBIN,TOTAL 0.4 mg/dL (0.2-1.0); TOTAL PROTEIN 7.2 g/dL (6.4-8.2)
[2019-08-22] MEDS: WARFARIN HIGH DOSE PROTOCOL XX SCH (12:00)
[2019-08-22 13:02] VITALS: BP 95/62
[2019-08-22] MEDS ORDERED: WARFARIN 7.5 MG TABLET PO-COUM ONE (18:00)
[2019-08-22 19:28] VITALS: BP 100/59
[2019-08-22] MEDS: MELATONIN 5 MG TABLET PO PRN (23:35)
[2019-08-23] MEDS: LORazepam 1MG TABLET PO PRN ×2 (00:06→12:06)
[2019-08-23 02:00] VITALS: BP 104/68
[2019-08-23] MEDS: OXYcodone IR 5MG TABLET PO PRN ×4 (03:51→20:32)
[2019-08-23] MEDS: METHOCARBAMOL 750 MG TABLET PO PRN ×2 (04:46→18:01)
[2019-08-23 05:24] VITALS: BP 95/62
[2019-08-23] MEDS: PANTOPROZOLE 40MG TABLET PO SCH (05:26)
[2019-08-23] MEDS: METOPROLOL TARTRATE 25 MG TABLET PO SCH ×2 (05:27→18:02)
[2019-08-23] MEDS: ACETAMINOPHEN 325 MG TABLET PO SCH ×3 (05:27→18:01)
[2019-08-23 06:23] LABS: INTERNATIONAL NORMALIZED RATIO 2.35 (0.93-1.1); PROTHROMBIN TIME 23.9 Seconds (9.6-11.5)
[2019-08-23 07:28] VITALS: BP 92/61
[2019-08-23] MEDS: MAGNESIUM HYDROXIDE 8%, 30ML UDC PO SCH (08:24)
[2019-08-23] MEDS: LACTOBACILLUS CHEW TABLET PO SCH ×3 (08:24→20:32)
[2019-08-23] MEDS: SIMETHICONE 80 MG CHEW TAB PO SCH ×4 (08:24→20:32)
[2019-08-23] MEDS: GABAPENTIN 300 MG CAPSULE PO SCH ×3 (08:26→20:32)
[2019-08-23] MEDS: DOCUSATE 100 MG CAPSULE PO SCH ×2 (08:26→20:32)
[2019-08-23] MEDS: CEPHALEXIN 500 MG CAPSULE PO SCH ×2 (08:26→20:33)
[2019-08-23] MEDS: WARFARIN HIGH DOSE PROTOCOL XX SCH (12:00)
[2019-08-23] MEDS: IBUPROFEN 200 MG TABLET PO PRN (12:05)
[2019-08-23] MEDS: SODIUM CHLORIDE FLUSH 10ML SYR IVF SCH ×2 (12:11→20:33)
[2019-08-23 12:54] VITALS: BP 82/50
[2019-08-23 14:15] VITALS: BP 93/58
[2019-08-23] MEDS: PROMETHAZINE 25MG TABLET PO PRN ×2 (15:28→21:47)
[2019-08-23] MEDS ORDERED: WARFARIN 7.5 MG TABLET PO-COUM ONE (18:00)
[2019-08-23 19:51] VITALS: BP 99/68
[2019-08-23] MEDS: MELATONIN 5 MG TABLET PO PRN (20:33)
[2019-08-24] MEDS: ACETAMINOPHEN 325 MG TABLET PO SCH ×5 (00:16→18:38)
[2019-08-24] MEDS: METHOCARBAMOL 750 MG TABLET PO PRN ×3 (00:16→16:15)
[2019-08-24] MEDS: LORazepam 1MG TABLET PO PRN ×2 (00:16→12:57)
[2019-08-24] MEDS: OXYcodone IR 5MG TABLET PO PRN ×5 (01:24→20:54)
[2019-08-24 01:44] VITALS: BP 95/62
[2019-08-24 06:07] LABS: INTERNATIONAL NORMALIZED RATIO 2.17 (0.93-1.1); PROTHROMBIN TIME 22.1 Seconds (9.6-11.5)
[2019-08-24] MEDS: PROMETHAZINE 25MG TABLET PO PRN ×2 (06:43→20:55)
[2019-08-24] MEDS: METOPROLOL TARTRATE 25 MG TABLET PO SCH ×2 (06:43→18:38)
[2019-08-24] MEDS: PANTOPROZOLE 40MG TABLET PO SCH (06:43)
[2019-08-24] MEDS: SIMETHICONE 80 MG CHEW TAB PO SCH ×4 (08:16→20:54)
[2019-08-24] MEDS: DOCUSATE 100 MG CAPSULE PO SCH ×2 (08:16→20:54)
[2019-08-24] MEDS: CEPHALEXIN 500 MG CAPSULE PO SCH ×2 (08:16→20:54)
[2019-08-24] MEDS: LACTOBACILLUS CHEW TABLET PO SCH ×3 (08:16→20:54)
[2019-08-24] MEDS: MAGNESIUM HYDROXIDE 8%, 30ML UDC PO SCH (08:16)
[2019-08-24] MEDS: GABAPENTIN 300 MG CAPSULE PO SCH ×3 (08:16→20:55)
[2019-08-24 08:17] VITALS: BP 109/74
[2019-08-24] MEDS: SODIUM CHLORIDE FLUSH 10ML SYR IVF SCH ×2 (08:17→20:54)
[2019-08-24] MEDS: IBUPROFEN 200 MG TABLET PO PRN ×2 (09:02→20:55)
[2019-08-24] MEDS: WARFARIN HIGH DOSE PROTOCOL XX SCH (12:00)
[2019-08-24] MEDS: ONDANSETRON 2MG/ML, 2ML IVPush PRN (12:58)
[2019-08-24 14:23] VITALS: BP 96/60
[2019-08-24] MEDS ORDERED: WARFARIN 7.5 MG TABLET PO-COUM ONE (18:00)
[2019-08-24 19:24] VITALS: BP 116/74
[2019-08-24] MEDS: DIAZEPAM 2 MG TABLET PO PRN (20:54)
[2019-08-24] MEDS: MELATONIN 5 MG TABLET PO PRN (20:55)
[2019-08-25] MEDS: ACETAMINOPHEN 325 MG TABLET PO SCH ×4 (00:30→17:46)
[2019-08-25 00:32] VITALS: BP 108/66
[2019-08-25] MEDS: OXYcodone IR 5MG TABLET PO PRN ×5 (02:00→19:48)
[2019-08-25] MEDS: METOPROLOL TARTRATE 25 MG TABLET PO SCH ×2 (06:27→17:45)
[2019-08-25] MEDS: PROMETHAZINE 25MG TABLET PO PRN ×2 (06:27→21:15)
[2019-08-25] MEDS: PANTOPROZOLE 40MG TABLET PO SCH (06:28)
[2019-08-25] MEDS: IBUPROFEN 200 MG TABLET PO PRN ×2 (06:28→21:15)
[2019-08-25] MEDS: DIAZEPAM 2 MG TABLET PO PRN ×3 (06:28→21:15)
[2019-08-25 06:31] LABS: INTERNATIONAL NORMALIZED RATIO 2.04 (0.93-1.1); PROTHROMBIN TIME 20.8 Seconds (9.6-11.5)
[2019-08-25 08:29] VITALS: BP 112/76
[2019-08-25] MEDS: SIMETHICONE 80 MG CHEW TAB PO SCH ×4 (08:54→21:14)
[2019-08-25] MEDS: GABAPENTIN 300 MG CAPSULE PO SCH ×3 (08:54→21:15)
[2019-08-25] MEDS: LACTOBACILLUS CHEW TABLET PO SCH ×3 (08:54→21:14)
[2019-08-25] MEDS: DOCUSATE 100 MG CAPSULE PO SCH ×2 (08:54→21:15)
[2019-08-25] MEDS: MAGNESIUM HYDROXIDE 8%, 30ML UDC PO SCH (08:54)
[2019-08-25] MEDS: ESCITALOPRAM 10MG TABLET PO SCH (08:55)
[2019-08-25] MEDS: CEPHALEXIN 500 MG CAPSULE PO SCH ×2 (08:55→21:15)
[2019-08-25] MEDS: SODIUM CHLORIDE FLUSH 10ML SYR IVF SCH ×2 (08:58→21:14)
[2019-08-25] MEDS: WARFARIN HIGH DOSE PROTOCOL XX SCH (12:00)
[2019-08-25] MEDS: ONDANSETRON 2MG/ML, 2ML IVPush PRN (12:47)
[2019-08-25 12:51] VITALS: BP 103/65
[2019-08-25] MEDS ORDERED: WARFARIN 7.5 MG TABLET PO-COUM ONE (18:00)
[2019-08-25 19:16] VITALS: BP 108/72
[2019-08-25] MEDS: MELATONIN 5 MG TABLET PO PRN (21:15)
[2019-08-26] MEDS: ACETAMINOPHEN 325 MG TABLET PO SCH ×4 (00:53→20:02)
[2019-08-26] MEDS: OXYcodone IR 5MG TABLET PO PRN ×5 (00:54→18:45)
[2019-08-26 01:35] VITALS: BP 101/66
[2019-08-26] MEDS: DIAZEPAM 2 MG TABLET PO PRN ×3 (05:25→21:32)
[2019-08-26] MEDS: PROMETHAZINE 25MG TABLET PO PRN ×2 (05:25→14:27)
[2019-08-26] MEDS: IBUPROFEN 200 MG TABLET PO PRN ×3 (05:26→21:32)
[2019-08-26] MEDS: PANTOPROZOLE 40MG TABLET PO SCH (05:27)
[2019-08-26] MEDS: METOPROLOL TARTRATE 25 MG TABLET PO SCH ×2 (05:27→17:29)
[2019-08-26 05:58] LABS: INTERNATIONAL NORMALIZED RATIO 2.17 (0.93-1.1); PROTHROMBIN TIME 22.1 Seconds (9.6-11.5)
[2019-08-26 06:33] VITALS: BP 103/70
[2019-08-26] MEDS: SODIUM CHLORIDE FLUSH 10ML SYR IVF SCH ×2 (09:00→20:03)
[2019-08-26] MEDS: LACTOBACILLUS CHEW TABLET PO SCH ×3 (10:02→20:02)
[2019-08-26] MEDS: DOCUSATE 100 MG CAPSULE PO SCH ×2 (10:02→20:02)
[2019-08-26] MEDS: LIDODERM 5% PATCH TD SCH (10:02)
[2019-08-26] MEDS: MAGNESIUM HYDROXIDE 8%, 30ML UDC PO SCH (10:02)
[2019-08-26] MEDS: CEPHALEXIN 500 MG CAPSULE PO SCH ×2 (10:03→21:32)
[2019-08-26] MEDS: ONDANSETRON 2MG/ML, 2ML IVPush PRN ×2 (10:03→17:29)
[2019-08-26] MEDS: GABAPENTIN 300 MG CAPSULE PO SCH ×3 (10:03→20:02)
[2019-08-26] MEDS: SIMETHICONE 80 MG CHEW TAB PO SCH ×4 (10:03→20:02)
[2019-08-26] MEDS: DIPHENHYDRAMINE 25 MG CAPSULE PO PRN (10:03)
[2019-08-26] MEDS: ESCITALOPRAM 10MG TABLET PO SCH (10:03)
[2019-08-26] MEDS: WARFARIN HIGH DOSE PROTOCOL XX SCH (11:37)
[2019-08-26 14:25] VITALS: BP 104/68
[2019-08-26] MEDS ORDERED: WARFARIN 7.5 MG TABLET PO-COUM ONE (18:00)
[2019-08-26 19:59] VITALS: BP 100/66
[2019-08-26] MEDS: LIDODERM REMOVE PATCH NOTE XX SCH (21:32)
[2019-08-26] MEDS: MELATONIN 5 MG TABLET PO PRN (21:32)
[2019-08-27] MEDS: OXYcodone IR 5MG TABLET PO PRN ×5 (00:59→20:34)
[2019-08-27] MEDS: PROMETHAZINE 25MG TABLET PO PRN ×3 (01:08→22:06)
[2019-08-27] MEDS: DIPHENHYDRAMINE 25 MG CAPSULE PO PRN (01:08)
[2019-08-27 01:33] VITALS: BP 95/60
[2019-08-27] MEDS: ACETAMINOPHEN 325 MG TABLET PO SCH ×4 (03:30→20:35)
[2019-08-27] MEDS: DIAZEPAM 2 MG TABLET PO PRN ×3 (04:41→22:06)
[2019-08-27] MEDS: ONDANSETRON 2MG/ML, 2ML IVPush PRN (04:41)
[2019-08-27 05:59] LABS: INTERNATIONAL NORMALIZED RATIO 1.91 (0.93-1.1); PROTHROMBIN TIME 19.6 Seconds (9.6-11.5)
[2019-08-27] MEDS: METOPROLOL TARTRATE 25 MG TABLET PO SCH ×2 (06:00→17:26)
[2019-08-27] MEDS: PANTOPROZOLE 40MG TABLET PO SCH (07:25)
[2019-08-27] MEDS: LACTOBACILLUS CHEW TABLET PO SCH ×3 (07:25→20:35)
[2019-08-27] MEDS: DOCUSATE 100 MG CAPSULE PO SCH ×2 (07:25→20:34)
[2019-08-27] MEDS: GABAPENTIN 300 MG CAPSULE PO SCH ×3 (07:25→20:35)
[2019-08-27] MEDS: SIMETHICONE 80 MG CHEW TAB PO SCH ×4 (07:25→20:34)
[2019-08-27] MEDS: ESCITALOPRAM 10MG TABLET PO SCH (07:25)
[2019-08-27] MEDS: MAGNESIUM HYDROXIDE 8%, 30ML UDC PO SCH (07:25)
[2019-08-27] MEDS: SODIUM CHLORIDE FLUSH 10ML SYR IVF SCH ×2 (07:30→20:34)
[2019-08-27 07:50] VITALS: BP 96/62
[2019-08-27] MEDS: CEPHALEXIN 500 MG CAPSULE PO SCH ×2 (10:31→22:06)
[2019-08-27] MEDS: LIDODERM 5% PATCH TD SCH (10:31)
[2019-08-27] MEDS: IBUPROFEN 200 MG TABLET PO PRN ×2 (10:34→22:05)
[2019-08-27] MEDS: WARFARIN HIGH DOSE PROTOCOL XX SCH (11:09)
[2019-08-27 14:00] VITALS: BP 122/86
[2019-08-27] MEDS ORDERED: WARFARIN 7.5 MG TABLET PO-COUM ONE (18:00)
[2019-08-27 20:49] VITALS: BP 122/79
[2019-08-27] MEDS: MELATONIN 5 MG TABLET PO PRN (22:06)
[2019-08-27] MEDS: LIDODERM REMOVE PATCH NOTE XX SCH (22:06)
[2019-08-28] MEDS: DIPHENHYDRAMINE 25 MG CAPSULE PO PRN ×2 (00:30→21:04)
[2019-08-28] MEDS: OXYcodone IR 5MG TABLET PO PRN ×6 (00:30→22:31)
[2019-08-28 02:10] VITALS: BP 109/69
[2019-08-28] MEDS: ONDANSETRON 2MG/ML, 2ML IVPush PRN ×2 (02:47→17:35)
[2019-08-28] MEDS: ACETAMINOPHEN 325 MG TABLET PO SCH ×4 (02:47→21:03)
[2019-08-28] MEDS: PROMETHAZINE 25MG TABLET PO PRN (04:42)
[2019-08-28] MEDS: PANTOPROZOLE 40MG TABLET PO SCH (06:11)
[2019-08-28] MEDS: DIAZEPAM 2 MG TABLET PO PRN ×3 (06:11→21:52)
[2019-08-28] MEDS: IBUPROFEN 200 MG TABLET PO PRN (06:12)
[2019-08-28] MEDS: METOPROLOL TARTRATE 25 MG TABLET PO SCH ×2 (06:12→17:33)
[2019-08-28 06:34] LABS: INTERNATIONAL NORMALIZED RATIO 1.79 (0.93-1.1); PROTHROMBIN TIME 18.4 Seconds (9.6-11.5)
[2019-08-28 06:35] VITALS: BP 95/62
[2019-08-28] MEDS: SODIUM CHLORIDE FLUSH 10ML SYR IVF SCH ×2 (08:54→21:03)
[2019-08-28] MEDS: LIDODERM 5% PATCH TD SCH (08:55)
[2019-08-28] MEDS: CEPHALEXIN 500 MG CAPSULE PO SCH ×2 (08:56→21:03)
[2019-08-28] MEDS: SIMETHICONE 80 MG CHEW TAB PO SCH ×4 (08:57→21:04)
[2019-08-28] MEDS: ESCITALOPRAM 10MG TABLET PO SCH (08:57)
[2019-08-28] MEDS: MAGNESIUM HYDROXIDE 8%, 30ML UDC PO SCH (08:57)
[2019-08-28] MEDS: DOCUSATE 100 MG CAPSULE PO SCH ×2 (08:57→21:03)
[2019-08-28] MEDS: GABAPENTIN 300 MG CAPSULE PO SCH ×3 (08:57→21:03)
[2019-08-28] MEDS: LACTOBACILLUS CHEW TABLET PO SCH ×3 (08:57→21:04)
[2019-08-28] MEDS: WARFARIN HIGH DOSE PROTOCOL XX SCH (11:46)
[2019-08-28 12:35] VITALS: BP 90/51
[2019-08-28] MEDS ORDERED: DIAZEPAM 5 MG TABLET ONE (14:07)
[2019-08-28] MEDS ORDERED: WARFARIN 10 MG TABLET PO-COUM ONE (18:00)
[2019-08-28 20:07] VITALS: BP 98/63
[2019-08-28] MEDS: LIDODERM REMOVE PATCH NOTE XX SCH (21:09)
[2019-08-28] MEDS: MELATONIN 5 MG TABLET PO PRN (21:09)
[2019-08-29] MEDS: IBUPROFEN 200 MG TABLET PO PRN (02:07)
[2019-08-29 02:17] VITALS: BP 99/66
[2019-08-29] MEDS: OXYcodone IR 5MG TABLET PO PRN ×4 (02:34→20:25)
[2019-08-29] MEDS: ACETAMINOPHEN 325 MG TABLET PO SCH ×4 (02:35→21:55)
[2019-08-29] MEDS: PROMETHAZINE 25MG TABLET PO PRN (04:27)
[2019-08-29] MEDS: DIPHENHYDRAMINE 25 MG CAPSULE PO PRN (04:32)
[2019-08-29 05:55] LABS: INTERNATIONAL NORMALIZED RATIO 1.76 (0.93-1.1); PROTHROMBIN TIME 18.1 Seconds (9.6-11.5)
[2019-08-29] MEDS: METOPROLOL TARTRATE 25 MG TABLET PO SCH ×2 (06:00→17:56)
[2019-08-29 06:38] VITALS: BP 92/55
[2019-08-29] MEDS: PANTOPROZOLE 40MG TABLET PO SCH (06:39)
[2019-08-29] MEDS: DIAZEPAM 2 MG TABLET PO PRN ×2 (06:46→18:08)
[2019-08-29 08:28] VITALS: BP 90/54
[2019-08-29] MEDS: SIMETHICONE 80 MG CHEW TAB PO SCH ×4 (08:37→21:55)
[2019-08-29] MEDS: SODIUM CHLORIDE FLUSH 10ML SYR IVF SCH ×2 (08:37→23:05)
[2019-08-29] MEDS: MAGNESIUM HYDROXIDE 8%, 30ML UDC PO SCH (08:38)
[2019-08-29] MEDS: ESCITALOPRAM 10MG TABLET PO SCH (08:38)
[2019-08-29] MEDS: CEPHALEXIN 500 MG CAPSULE PO SCH ×2 (08:38→21:56)
[2019-08-29] MEDS: LACTOBACILLUS CHEW TABLET PO SCH ×3 (08:38→21:56)
[2019-08-29] MEDS: DOCUSATE 100 MG CAPSULE PO SCH ×2 (08:38→21:55)
[2019-08-29] MEDS: GABAPENTIN 300 MG CAPSULE PO SCH ×3 (08:38→21:56)
[2019-08-29] MEDS: LIDODERM 5% PATCH TD SCH (08:39)
[2019-08-29] MEDS: WARFARIN HIGH DOSE PROTOCOL XX SCH (12:00)
[2019-08-29 14:55] VITALS: BP 110/71
[2019-08-29 17:55] VITALS: BP 99/61
[2019-08-29] MEDS ORDERED: WARFARIN 10 MG TABLET PO-COUM ONE (18:00)
[2019-08-29 20:45] VITALS: BP 103/58
[2019-08-29] MEDS: MELATONIN 5 MG TABLET PO PRN (21:56)
[2019-08-29] MEDS: LIDODERM REMOVE PATCH NOTE XX SCH (21:57)
[2019-08-30] MEDS: PROMETHAZINE 25MG TABLET PO PRN (01:33)
[2019-08-30] MEDS: OXYcodone IR 5MG TABLET PO PRN ×4 (01:41→22:03)
[2019-08-30 02:00] VITALS: BP 103/68
[2019-08-30] MEDS: ACETAMINOPHEN 325 MG TABLET PO SCH ×4 (03:00→22:06)
[2019-08-30] MEDS: PANTOPROZOLE 40MG TABLET PO SCH (04:58)
[2019-08-30] MEDS: METOPROLOL TARTRATE 25 MG TABLET PO SCH ×2 (04:58→17:28)
[2019-08-30] MEDS: IBUPROFEN 200 MG TABLET PO PRN (05:02)
[2019-08-30 05:50] LABS: INTERNATIONAL NORMALIZED RATIO 2.14 (0.93-1.1); PROTHROMBIN TIME 21.8 Seconds (9.6-11.5)
[2019-08-30 07:33] VITALS: BP 97/61
[2019-08-30] MEDS: LACTOBACILLUS CHEW TABLET PO SCH ×3 (09:26→22:03)
[2019-08-30] MEDS: GABAPENTIN 300 MG CAPSULE PO SCH ×3 (09:26→22:02)
[2019-08-30] MEDS: CEPHALEXIN 500 MG CAPSULE PO SCH ×2 (09:26→22:03)
[2019-08-30] MEDS: DOCUSATE 100 MG CAPSULE PO SCH ×2 (09:26→22:03)
[2019-08-30] MEDS: ESCITALOPRAM 10MG TABLET PO SCH (09:26)
[2019-08-30] MEDS: MAGNESIUM HYDROXIDE 8%, 30ML UDC PO SCH (09:26)
[2019-08-30] MEDS: SIMETHICONE 80 MG CHEW TAB PO SCH ×4 (09:26→22:02)
[2019-08-30] MEDS: LIDODERM 5% PATCH TD SCH (09:27)
[2019-08-30] MEDS: SODIUM CHLORIDE FLUSH 10ML SYR IVF SCH ×2 (09:28→22:06)
[2019-08-30] MEDS: ONDANSETRON 2MG/ML, 2ML IVPush PRN ×2 (09:48→22:19)
[2019-08-30 09:50] VITALS: BP 95/51
[2019-08-30] MEDS: WARFARIN HIGH DOSE PROTOCOL XX SCH (12:00)
[2019-08-30 13:00] VITALS: BP 132/66
[2019-08-30] MEDS: DIAZEPAM 2 MG TABLET PO PRN ×2 (13:13→23:17)
[2019-08-30] MEDS ORDERED: WARFARIN 3 MG TABLET PO-COUM ONE (18:00)
[2019-08-30 18:55] VITALS: BP 102/66
[2019-08-30] MEDS: LIDODERM REMOVE PATCH NOTE XX SCH (22:00)
[2019-08-30] MEDS: MELATONIN 5 MG TABLET PO PRN (22:03)
[2019-08-31] VITALS (11 sets, daily range): BP systolic 93–119; BP diastolic 50–70
[2019-08-31] MEDS: OXYcodone IR 5MG TABLET PO PRN ×3 (03:36→22:34)
[2019-08-31] MEDS: ACETAMINOPHEN 325 MG TABLET PO SCH ×4 (03:36→22:34)
[2019-08-31] MEDS: PANTOPROZOLE 40MG TABLET PO SCH (05:26)
[2019-08-31] MEDS: IBUPROFEN 200 MG TABLET PO PRN (05:27)
[2019-08-31] MEDS: METOPROLOL TARTRATE 25 MG TABLET PO SCH ×2 (05:27→18:07)
[2019-08-31] MEDS: PROMETHAZINE 25MG TABLET PO PRN (05:43)
[2019-08-31 06:29] LABS: INTERNATIONAL NORMALIZED RATIO 2.37 (0.93-1.1); PROTHROMBIN TIME 24.1 Seconds (9.6-11.5)
[2019-08-31] MEDS: LACTOBACILLUS CHEW TABLET PO SCH ×3 (08:19→22:34)
[2019-08-31] MEDS: SIMETHICONE 80 MG CHEW TAB PO SCH ×4 (08:19→22:34)
[2019-08-31] MEDS: GABAPENTIN 300 MG CAPSULE PO SCH ×3 (08:19→22:34)
[2019-08-31] MEDS: DOCUSATE 100 MG CAPSULE PO SCH ×2 (08:19→22:34)
[2019-08-31] MEDS: ESCITALOPRAM 10MG TABLET PO SCH (08:20)
[2019-08-31] MEDS: SODIUM CHLORIDE FLUSH 10ML SYR IVF SCH ×2 (08:20→21:00)
[2019-08-31] MEDS: MAGNESIUM HYDROXIDE 8%, 30ML UDC PO SCH (08:20)
[2019-08-31] MEDS: CEPHALEXIN 500 MG CAPSULE PO SCH ×2 (08:34→22:34)
[2019-08-31] MEDS: WARFARIN HIGH DOSE PROTOCOL XX SCH (12:00)
[2019-08-31] MEDS: LIDODERM 5% PATCH TD SCH (12:56)
[2019-08-31] MEDS ORDERED: WARFARIN 7.5 MG TABLET PO-COUM SCH (18:00)
[2019-08-31] MEDS: DIAZEPAM 2 MG TABLET PO PRN (18:44)
[2019-08-31] MEDS: LIDODERM REMOVE PATCH NOTE XX SCH (22:00)
[2019-09-01 02:17] VITALS: BP 105/67
[2019-09-01] MEDS: OXYcodone IR 5MG TABLET PO PRN ×4 (02:51→21:49)
[2019-09-01] MEDS: ACETAMINOPHEN 325 MG TABLET PO SCH ×4 (03:58→21:39)
[2019-09-01 04:01] VITALS: BP 111/70
[2019-09-01 05:48] LABS: INTERNATIONAL NORMALIZED RATIO 2.53 (0.93-1.1); PROTHROMBIN TIME 25.6 Seconds (9.6-11.5)
[2019-09-01] MEDS: METOPROLOL TARTRATE 25 MG TABLET PO SCH ×2 (05:49→18:24)
[2019-09-01] MEDS: PANTOPROZOLE 40MG TABLET PO SCH (05:49)
[2019-09-01 07:54] VITALS: BP 105/76
[2019-09-01] MEDS: MAGNESIUM HYDROXIDE 8%, 30ML UDC PO SCH (08:40)
[2019-09-01] MEDS: DOCUSATE 100 MG CAPSULE PO SCH ×2 (08:41→21:39)
[2019-09-01] MEDS: SODIUM CHLORIDE FLUSH 10ML SYR IVF SCH ×2 (08:41→21:39)
[2019-09-01] MEDS: ESCITALOPRAM 10MG TABLET PO SCH (08:41)
[2019-09-01] MEDS: GABAPENTIN 300 MG CAPSULE PO SCH ×3 (08:41→21:39)
[2019-09-01] MEDS: CEPHALEXIN 500 MG CAPSULE PO SCH ×2 (08:41→21:39)
[2019-09-01] MEDS: SIMETHICONE 80 MG CHEW TAB PO SCH ×4 (08:41→21:39)
[2019-09-01] MEDS: LACTOBACILLUS CHEW TABLET PO SCH ×3 (08:41→21:39)
[2019-09-01] MEDS: LIDODERM 5% PATCH TD SCH (08:42)
[2019-09-01] MEDS ORDERED: DIAZEPAM 5 MG TABLET ONE (11:26)
[2019-09-01] MEDS: DIAZEPAM 2 MG TABLET PO PRN (11:29)
[2019-09-01] MEDS: IBUPROFEN 200 MG TABLET PO PRN (11:30)
[2019-09-01 12:10] VITALS: BP 107/64
[2019-09-01] MEDS ORDERED: WARFARIN 7.5 MG TABLET PO-COUM SCH (18:00)
[2019-09-01 19:24] VITALS: BP 95/53
[2019-09-01] MEDS: LIDODERM REMOVE PATCH NOTE XX SCH (21:39)
[2019-09-01 21:45] VITALS: BP 105/62
[2019-09-02 00:26] VITALS: BP 112/78
[2019-09-02] MEDS: DIAZEPAM 2 MG TABLET PO PRN ×2 (02:21→10:41)
[2019-09-02] MEDS: ACETAMINOPHEN 325 MG TABLET PO SCH ×4 (02:21→22:36)
[2019-09-02] MEDS: OXYcodone IR 5MG TABLET PO PRN ×4 (03:34→22:37)
[2019-09-02 05:13] LABS: INTERNATIONAL NORMALIZED RATIO 2.42 (0.93-1.1); PROTHROMBIN TIME 24.6 Seconds (9.6-11.5)
[2019-09-02] MEDS: PANTOPROZOLE 40MG TABLET PO SCH (05:22)
[2019-09-02] MEDS: METOPROLOL TARTRATE 25 MG TABLET PO SCH ×2 (05:22→18:00)
[2019-09-02] MEDS: LACTOBACILLUS CHEW TABLET PO SCH ×3 (08:20→22:36)
[2019-09-02] MEDS: MAGNESIUM HYDROXIDE 8%, 30ML UDC PO SCH (08:20)
[2019-09-02] MEDS: LIDODERM REMOVE PATCH NOTE XX SCH (08:20)
[2019-09-02] MEDS: ESCITALOPRAM 10MG TABLET PO SCH (08:20)
[2019-09-02] MEDS: SIMETHICONE 80 MG CHEW TAB PO SCH ×4 (08:20→22:35)
[2019-09-02] MEDS: GABAPENTIN 300 MG CAPSULE PO SCH ×3 (08:20→22:36)
[2019-09-02] MEDS: LACTULOSE 20 GM/30 ML UDC NG PRN (08:20)
[2019-09-02] MEDS: CEPHALEXIN 500 MG CAPSULE PO SCH ×2 (08:21→22:36)
[2019-09-02] MEDS: SODIUM CHLORIDE FLUSH 10ML SYR IVF SCH ×2 (08:21→22:35)
[2019-09-02] MEDS: DOCUSATE 100 MG CAPSULE PO SCH ×2 (08:21→21:00)
[2019-09-02] MEDS: LIDODERM 5% PATCH TD SCH (10:00)
[2019-09-02] MEDS ORDERED: DIAZEPAM 5 MG TABLET ONE (10:39)
[2019-09-02] MEDS: IBUPROFEN 200 MG TABLET PO PRN (10:41)
[2019-09-02 10:43] VITALS: BP 107/71
[2019-09-02] MEDS: ONDANSETRON 2MG/ML, 2ML IVPush PRN (10:47)
[2019-09-02 12:12] VITALS: BP 117/74
[2019-09-02] MEDS ORDERED: WARFARIN 3 MG TABLET PO-COUM SCH (18:00)
[2019-09-02 20:30] VITALS: BP 103/64
[2019-09-02] MEDS: MELATONIN 5 MG TABLET PO PRN (22:36)
[2019-09-03 01:39] VITALS: BP 117/73
[2019-09-03] MEDS: DIAZEPAM 2 MG TABLET PO PRN ×3 (01:52→22:00)
[2019-09-03] MEDS: OXYcodone IR 5MG TABLET PO PRN ×5 (03:50→22:00)
[2019-09-03] MEDS: ACETAMINOPHEN 325 MG TABLET PO SCH ×4 (03:50→21:53)
[2019-09-03] MEDS: PROMETHAZINE 25MG TABLET PO PRN (05:45)
[2019-09-03] MEDS: PANTOPROZOLE 40MG TABLET PO SCH (05:45)
[2019-09-03] MEDS: METOPROLOL TARTRATE 25 MG TABLET PO SCH ×2 (05:46→16:55)
[2019-09-03 05:47] LABS: INTERNATIONAL NORMALIZED RATIO 2.62 (0.93-1.1)
[2019-09-03] MEDS: SIMETHICONE 80 MG CHEW TAB PO SCH ×4 (08:45→21:53)
[2019-09-03] MEDS: LIDODERM 5% PATCH TD SCH (08:45)
[2019-09-03] MEDS: MAGNESIUM HYDROXIDE 8%, 30ML UDC PO SCH (08:45)
[2019-09-03] MEDS: LACTOBACILLUS CHEW TABLET PO SCH ×3 (08:46→21:53)
[2019-09-03] MEDS: DOCUSATE 100 MG CAPSULE PO SCH ×2 (08:46→21:52)
[2019-09-03] MEDS: ESCITALOPRAM 10MG TABLET PO SCH (08:46)
[2019-09-03] MEDS: CEPHALEXIN 500 MG CAPSULE PO SCH ×2 (08:46→21:53)
[2019-09-03] MEDS: GABAPENTIN 300 MG CAPSULE PO SCH ×3 (08:47→21:52)
[2019-09-03] MEDS: SODIUM CHLORIDE FLUSH 10ML SYR IVF SCH ×2 (08:48→21:53)
[2019-09-03 08:52] VITALS: BP 114/73
[2019-09-03] MEDS: IBUPROFEN 200 MG TABLET PO PRN (10:42)
[2019-09-03] MEDS ORDERED: DIAZ2TAB3 PO (12:38)
[2019-09-03] MEDS ORDERED: GABA300C10 PO (12:38)
[2019-09-03] MEDS ORDERED: METO25TA35 PO (12:38)
[2019-09-03] MEDS ORDERED: ESCI10TA PO (12:38)
[2019-09-03] MEDS ORDERED: CEPH-376 PO (12:38)
[2019-09-03] MEDS ORDERED: WARF4TAB PO (12:38)
[2019-09-03 14:09] VITALS: BP 93/59
[2019-09-03] MEDS: ONDANSETRON 2MG/ML, 2ML IVPush PRN ×2 (15:23→22:55)
[2019-09-03] MEDS ORDERED: WARFARIN 2 MG TABLET PO-COUM SCH (18:00)
[2019-09-03] MEDS: PROCHLORPERAZINE 5 MG TABLET PO PRN (18:05)
[2019-09-03 18:36] VITALS: BP 97/59
[2019-09-03] MEDS: LIDODERM REMOVE PATCH NOTE XX SCH (21:54)
[2019-09-03] MEDS ORDERED: DIAZEPAM 5 MG TABLET ONE (21:57)
[2019-09-03] MEDS: MELATONIN 5 MG TABLET PO PRN (21:59)
[2019-09-04 00:48] VITALS: BP 95/61
[2019-09-04] MEDS: ACETAMINOPHEN 325 MG TABLET PO SCH ×4 (03:19→19:59)
[2019-09-04] MEDS: OXYcodone IR 5MG TABLET PO PRN ×4 (03:31→17:35)
[2019-09-04] MEDS: PROCHLORPERAZINE 5 MG TABLET PO PRN (03:31)
[2019-09-04] MEDS ORDERED: DIAZEPAM 5 MG TABLET ONE (05:04)
[2019-09-04] MEDS: PANTOPROZOLE 40MG TABLET PO SCH (05:08)
[2019-09-04] MEDS: METOPROLOL TARTRATE 25 MG TABLET PO SCH ×2 (05:08→17:34)
[2019-09-04 05:09] LABS: INTERNATIONAL NORMALIZED RATIO 2.25 (0.93-1.1)
[2019-09-04] MEDS: DIAZEPAM 2 MG TABLET PO PRN ×3 (05:09→20:18)
[2019-09-04 08:40] VITALS: BP 104/72
[2019-09-04] MEDS: SIMETHICONE 80 MG CHEW TAB PO SCH ×4 (09:17→19:59)
[2019-09-04] MEDS: CEPHALEXIN 500 MG CAPSULE PO SCH ×2 (09:18→19:59)
[2019-09-04] MEDS: DOCUSATE 100 MG CAPSULE PO SCH ×2 (09:18→19:59)
[2019-09-04] MEDS: ESCITALOPRAM 10MG TABLET PO SCH (09:18)
[2019-09-04] MEDS: SODIUM CHLORIDE FLUSH 10ML SYR IVF SCH ×2 (09:18→20:17)
[2019-09-04] MEDS: LACTOBACILLUS CHEW TABLET PO SCH ×3 (09:18→19:59)
[2019-09-04] MEDS: GABAPENTIN 300 MG CAPSULE PO SCH ×3 (09:18→19:58)
[2019-09-04] MEDS: MAGNESIUM HYDROXIDE 8%, 30ML UDC PO SCH (09:18)
[2019-09-04] MEDS: LIDODERM 5% PATCH TD SCH (09:19)
[2019-09-04] MEDS: ONDANSETRON 2MG/ML, 2ML IVPush PRN (09:36)
[2019-09-04] MEDS: IBUPROFEN 200 MG TABLET PO PRN (12:34)
[2019-09-04 13:10] VITALS: BP 132/74
[2019-09-04] MEDS: PROMETHAZINE 25MG TABLET PO PRN (15:19)
[2019-09-04 17:32] VITALS: BP 125/63
[2019-09-04] MEDS ORDERED: WARFARIN 3 MG TABLET PO-COUM ONE (18:00)
[2019-09-04 20:07] VITALS: BP 126/65
[2019-09-04] MEDS: MELATONIN 5 MG TABLET PO PRN (20:18)
[2019-09-04] MEDS: LIDODERM REMOVE PATCH NOTE XX SCH (22:00)
[2019-09-05] MEDS: OXYcodone IR 5MG TABLET PO PRN ×5 (00:26→19:48)
[2019-09-05 01:11] VITALS: BP 95/56
[2019-09-05] MEDS: ACETAMINOPHEN 325 MG TABLET PO SCH ×4 (03:00→20:07)
[2019-09-05] MEDS: DIAZEPAM 2 MG TABLET PO PRN ×3 (04:45→23:38)
[2019-09-05 05:26] LABS: INTERNATIONAL NORMALIZED RATIO 2.07 (0.93-1.1); PROTHROMBIN TIME 22.1 Seconds (9.6-11.5)
[2019-09-05] MEDS: PANTOPROZOLE 40MG TABLET PO SCH (05:50)
[2019-09-05] MEDS: METOPROLOL TARTRATE 25 MG TABLET PO SCH ×2 (05:50→17:51)
[2019-09-05 07:52] VITALS: BP 111/69
[2019-09-05] MEDS: SODIUM CHLORIDE FLUSH 10ML SYR IVF SCH ×2 (09:00→19:20)
[2019-09-05] MEDS: CEPHALEXIN 500 MG CAPSULE PO SCH ×2 (09:20→20:07)
[2019-09-05] MEDS: DOCUSATE 100 MG CAPSULE PO SCH ×2 (09:20→20:07)
[2019-09-05] MEDS: LACTOBACILLUS CHEW TABLET PO SCH ×3 (09:20→20:07)
[2019-09-05] MEDS: SIMETHICONE 80 MG CHEW TAB PO SCH ×4 (09:20→20:07)
[2019-09-05] MEDS: ESCITALOPRAM 10MG TABLET PO SCH (09:21)
[2019-09-05] MEDS: GABAPENTIN 300 MG CAPSULE PO SCH ×3 (09:21→20:07)
[2019-09-05] MEDS: MAGNESIUM HYDROXIDE 8%, 30ML UDC PO SCH (09:21)
[2019-09-05] MEDS: LIDODERM 5% PATCH TD SCH (09:21)
[2019-09-05 13:00] VITALS: BP 105/70
[2019-09-05] MEDS: PROMETHAZINE 25MG TABLET PO PRN ×2 (15:44→23:38)
[2019-09-05 17:50] VITALS: BP 101/64
[2019-09-05] MEDS: IBUPROFEN 200 MG TABLET PO PRN (17:54)
[2019-09-05] MEDS ORDERED: WARFARIN 10 MG TABLET PO-COUM ONE (18:00)
[2019-09-05 20:11] VITALS: BP 126/67
[2019-09-05] MEDS: LIDODERM REMOVE PATCH NOTE XX SCH (23:15)
[2019-09-06 01:27] VITALS: BP 99/69
[2019-09-06] MEDS: ACETAMINOPHEN 325 MG TABLET PO SCH ×4 (03:00→20:21)
[2019-09-06] MEDS: OXYcodone IR 5MG TABLET PO PRN ×4 (03:13→20:22)
[2019-09-06 05:36] LABS: INTERNATIONAL NORMALIZED RATIO 1.99 (0.93-1.1); PROTHROMBIN TIME 21.2 Seconds (9.6-11.5)
[2019-09-06] MEDS: PANTOPROZOLE 40MG TABLET PO SCH (06:17)
[2019-09-06] MEDS: METOPROLOL TARTRATE 25 MG TABLET PO SCH ×2 (06:17→18:02)
[2019-09-06 06:20] VITALS: BP 124/79
[2019-09-06] MEDS: IBUPROFEN 200 MG TABLET PO PRN (06:24)
[2019-09-06] MEDS: PROMETHAZINE 25MG TABLET PO PRN (06:25)
[2019-09-06 06:36] VITALS: BP 117/80
[2019-09-06] MEDS: DOCUSATE 100 MG CAPSULE PO SCH ×2 (09:12→20:21)
[2019-09-06] MEDS: GABAPENTIN 300 MG CAPSULE PO SCH ×3 (09:12→20:21)
[2019-09-06] MEDS: MAGNESIUM HYDROXIDE 8%, 30ML UDC PO SCH (09:12)
[2019-09-06] MEDS: ESCITALOPRAM 10MG TABLET PO SCH (09:12)
[2019-09-06] MEDS: SIMETHICONE 80 MG CHEW TAB PO SCH ×4 (09:12→20:21)
[2019-09-06] MEDS: CEPHALEXIN 500 MG CAPSULE PO SCH ×2 (09:12→20:21)
[2019-09-06] MEDS: LACTOBACILLUS CHEW TABLET PO SCH ×3 (09:13→20:21)
[2019-09-06] MEDS: SODIUM CHLORIDE FLUSH 10ML SYR IVF SCH ×2 (10:27→21:00)
[2019-09-06] MEDS: DIAZEPAM 2 MG TABLET PO PRN ×2 (10:28→20:22)
[2019-09-06] MEDS: LIDODERM 5% PATCH TD SCH (10:28)
[2019-09-06 13:38] VITALS: BP 100/66
[2019-09-06] MEDS ORDERED: WARFARIN 10 MG TABLET PO-COUM ONE (18:00)
[2019-09-06 18:01] VITALS: BP 107/66
[2019-09-06 18:56] VITALS: BP 100/66
[2019-09-06] MEDS: MELATONIN 5 MG TABLET PO PRN (20:22)
[2019-09-06] MEDS: LIDODERM REMOVE PATCH NOTE XX SCH (22:00)
[2019-09-07] MEDS: PROCHLORPERAZINE 5 MG TABLET PO PRN (01:42)
[2019-09-07] MEDS: OXYcodone IR 5MG TABLET PO PRN ×4 (01:42→15:55)
[2019-09-07 02:11] VITALS: BP 97/62
[2019-09-07] MEDS: ACETAMINOPHEN 325 MG TABLET PO SCH ×3 (03:21→15:55)
[2019-09-07] MEDS: DIAZEPAM 2 MG TABLET PO PRN ×2 (05:36→14:23)
[2019-09-07] MEDS: PANTOPROZOLE 40MG TABLET PO SCH (05:37)
[2019-09-07 05:38] VITALS: BP 99/56
[2019-09-07] MEDS: METOPROLOL TARTRATE 25 MG TABLET PO SCH (06:00)
[2019-09-07 07:04] LABS: INTERNATIONAL NORMALIZED RATIO 2.23 (0.93-1.1); PROTHROMBIN TIME 23.8 Seconds (9.6-11.5)
[2019-09-07 07:59] VITALS: BP 121/84
[2019-09-07] MEDS: SIMETHICONE 80 MG CHEW TAB PO SCH ×2 (08:47→14:23)
[2019-09-07] MEDS: ESCITALOPRAM 10MG TABLET PO SCH (08:48)
[2019-09-07] MEDS: DOCUSATE 100 MG CAPSULE PO SCH (08:48)
[2019-09-07] MEDS: LACTOBACILLUS CHEW TABLET PO SCH (08:48)
[2019-09-07] MEDS: GABAPENTIN 300 MG CAPSULE PO SCH ×2 (08:48→15:55)
[2019-09-07] MEDS: CEPHALEXIN 500 MG CAPSULE PO SCH (08:49)
[2019-09-07] MEDS: MAGNESIUM HYDROXIDE 8%, 30ML UDC PO SCH (08:49)
[2019-09-07] MEDS: SODIUM CHLORIDE FLUSH 10ML SYR IVF SCH (09:00)
[2019-09-07] MEDS: PROMETHAZINE 25MG TABLET PO PRN (09:03)
[2019-09-07] MEDS: LIDODERM 5% PATCH TD SCH (09:04)
[2019-09-07 12:19] VITALS: BP 101/67
[2019-09-07] MEDS: IBUPROFEN 200 MG TABLET PO PRN (14:24)
[2019-09-07] MEDS ORDERED: WARFARIN 10 MG TABLET PO-COUM ONE (18:00)
== END 2019-09-07 17:28 | disposition home or self-care (01) | DRG 720 ==
LOC: ED 21:49 → EDIP 22:18 → CCU 23:07 → 4EST 07-20 13:42 → 3N 08-02 06:44
PROVIDERS: ADMIT Internal Medicine; ATTEND Hospitalist
PROC: 5A1935Z Respiratory Ventilation, Less than 24 Consecutive Hours (ICD-10-PCS; 2019-07-16)
PROC: 0BH17EZ Insertion of Endotracheal Airway into Trachea, Via Natural or Artificial Opening (ICD-10-PCS; 2019-07-16)
PROC: 02HV33Z Insertion of Infusion Device into Superior Vena Cava, Percutaneous Approach (ICD-10-PCS; 2019-07-16)
PROC: B548ZZA Ultrasonography of Superior Vena Cava, Guidance (ICD-10-PCS; 2019-07-16)
PROC: 0T9B70Z Drainage of Bladder with Drainage Device, Via Natural or Artificial Opening (ICD-10-PCS; 2019-07-16)
PROC: 02HV33Z Insertion of Infusion Device into Superior Vena Cava, Percutaneous Approach (ICD-10-PCS; principal; 2019-07-23)
PROC: B548ZZA Ultrasonography of Superior Vena Cava, Guidance (ICD-10-PCS; 2019-07-23)
DX: A41.9 Sepsis, unspecified organism (principal); J96.01 Acute respiratory failure with hypoxia; Z99.11 Dependence on respirator [ventilator] status; J15.212 Pneumonia due to Methicillin resistant Staphylococcus aureus; J15.0 Pneumonia due to Klebsiella pneumoniae; R65.21 Severe sepsis with septic shock; G93.41 Metabolic encephalopathy; R13.10 Dysphagia, unspecified; L89.303 Pressure ulcer of unspecified buttock, stage 3; I47.2 Ventricular tachycardia; I82.B11 Acute embolism and thrombosis of right subclavian vein; B18.2 Chronic viral hepatitis C; B95.61 Methicillin susceptible Staphylococcus aureus infection as the cause of diseases classified elsewhere; B96.20 Unspecified Escherichia coli [E. coli] as the cause of diseases classified elsewhere; B96.5 Pseudomonas (aeruginosa) (mallei) (pseudomallei) as the cause of diseases classified elsewhere; B96.89 Other specified bacterial agents as the cause of diseases classified elsewhere; E87.6 Hypokalemia; F11.90 Opioid use, unspecified, uncomplicated; F12.10 Cannabis abuse, uncomplicated; F15.10 Other stimulant abuse, uncomplicated; F32.9 Major depressive disorder, single episode, unspecified; F41.9 Anxiety disorder, unspecified; G89.4 Chronic pain syndrome; I10 Essential (primary) hypertension; I27.20 Pulmonary hypertension, unspecified; J30.2 Other seasonal allergic rhinitis; J32.0 Chronic maxillary sinusitis; K56.41 Fecal impaction; M06.9 Rheumatoid arthritis, unspecified; M79.7 Fibromyalgia; N12 Tubulo-interstitial nephritis, not specified as acute or chronic; Z91.410 Personal history of adult physical and sexual abuse; Z88.1 Allergy status to other antibiotic agents; Z86.61 Personal history of infections of the central nervous system; Z86.19 Personal history of other infectious and parasitic diseases; Z79.2 Long term (current) use of antibiotics; Z79.01 Long term (current) use of anticoagulants; Z76.5 Malingerer [conscious simulation]; Z74.01 Bed confinement status; Z53.20 Procedure and treatment not carried out because of patient's decision for unspecified reasons; Z51.5 Encounter for palliative care; Z91.411 Personal history of adult psychological abuse; Z98.1 Arthrodesis status; Z98.891 History of uterine scar from previous surgery; Z99.3 Dependence on wheelchair; Z88.0 Allergy status to penicillin; Z88.8 Allergy status to other drugs, medicaments and biological substances
CPT/HCPCS: 31500; 36415; 36556; 36573; 36600; 70450; 71045; 71275; 72072; 72110; 73523; 74018; 80048; 80053; 80069; 80074; 80076; 80202; 80307; 81001; 82306; 82565; 82803; 82962; 83036; 83605; 83735; 83880; 83970; 84100; 84478; 84484; 85025; 85610; 85651; 86140; 86592; 87040; 87070; 87077; 87081; 87086; 87147; 87184; 87186; 87205; 87324; 87389; 87521; 87522; 93005; 93306; 93970; 94002; 94003; 96365; 96366; 96367; 96368; 96375; G0378; J0692; J0712; J1335; J1644; J1650; J2020; J2185; J2405; J2550; J2704; J3010; J3370; J3480; J7070; P9047; Q0169; Q9967; C1751; J0360; J0780; J1815; J1940; J3475; J3490; J7030; J7040; J7050; Q0163; Q0164; Q0177

== ENCOUNTER 2020-04-08 15:56 | Inpatient (IN) | payer MEDICAID ==
[~2020-04-08] VITALS: Ht 167.6 cm; Wt 62.1 kg
[~2020-04-08 15:56] MED LIST changes: +CEPH-376 PO; +DIAZ2TAB3 PO; +ESCI10TA PO; -ETOMIDATE 40 MG/20 ML ONE; +METO25TA35 PO; +ONDA-89 PO; -ONDA4TAB12 PO; -PROPOFOL 10 MG/ML, 100ML IV ONE; -VECURONIUM 10 MG ONE; +WARF4TAB PO
--- NOTE | 2020-04-08 16:08 | NUR ---
DIONISIO. REPORT RECEIVED FROM EMS. PT C/O BACK PAIN WITH PRESSURE ULCER ON LOWER BACK(PT IS BED BOUND) D/T BACK SURGERY X 5. PT'S AOX4. RESPS EVEN AND UNLABORED. PT HAS LIM CATH PLACED D/T BED BOUND. BP/SPO2 MONITORS IN PLACE. CALL LIGHT WITHIN REACH. DENIES ANY OTHER SX. EKG DONE AT BEDSIDE.
--- NOTE | 2020-04-08 17:10 | NUR ---
EDMD AT BEDSIDE FOR EVALUATION AT THIS TIME.
[2020-04-08] MEDS ORDERED: HYDROmorphone 1 MG/ML, 1ML INJ ONE ×2 (17:19→19:02)
[2020-04-08] MEDS ORDERED: ONDANSETRON 2MG/ML, 2ML ONE (17:19)
--- NOTE | 2020-04-08 17:28 | NUR ---
XRAY AT BEDSIDE.
[2020-04-08] MEDS ORDERED: ONDANSETRON 2MG/ML, 2ML IVPush ONE (17:30)
[2020-04-08] MEDS ORDERED: SODIUM CHLORIDE FLUSH 10ML SYR IVF ONE (17:30)
[2020-04-08 17:50] LABS: ALBUMIN 4.1 g/dL (3.4-5.0); ANION GAP 8 mmol/L (5-15); CALCIUM 9.3 mg/dL (8.5-10.1); CHLORIDE 110 mmol/L (98-107); CREATININE 0.71 mg/dL (0.55-1.02)
[2020-04-08 17:55] LABS: MEAN CORPUSCULAR HEMOGLOBIN 22.1 pg (27.0-34.8); MEAN CORPUSCULAR HGB CONC 31.1 g/dL (32.4-35.8); MEAN CORPUSCULAR VOLUME 71.1 fL (80-100); MEAN PLATELET VOLUME 8.9 fL (7.4-10.4); PLATELET COUNT 329 x10^3/uL (130-400); RED BLOOD COUNT 5.95 x10^6/uL (3.82-5.3); RED CELL DISTRIBUTION WIDTH 22.6 % (9.6-15.2)
[2020-04-08 18:06] LABS: MD YES
[2020-04-08 18:10] LABS: EOS#(MANUAL) 0.31 x10^3/uL (0.0-0.4); EOS% (MANUAL) 4 % (1-7); LYMPH#(MANUAL) 1.54 x10^3/uL (1-3.4); LYMPHS% (MANUAL) 20 % (22-44); MONOS#(MANUAL) 0.62 x10^3/uL (0.3-2.7); MONOS% (MANUAL) 8 % (2-9); SEG#(MANUAL) 5.24 x10^3/uL (1.8-6.8); SEGS% (MANUAL) 68 % (42-75)
[2020-04-08 18:11] LABS: <PLATELET ESTIMATE> ADEQUATE; <PLT MORPHOLOGY> NORMAL PLT MORPH; ANISOCYTOSIS 1+
[2020-04-08] MEDS: HYDROmorphone 2 MG/ML, 1ML IVPush PRN ×2 (18:12→19:03)
--- NOTE | 2020-04-08 18:15 | NUR ---
piv est on l upper arm with no complications. pt medicated per emar. pt tolerated well.
--- NOTE | 2020-04-08 18:19 | NUR ---
URINE COLLECTED AND UA SENT.
[2020-04-08 18:36] LABS: MICROSCOPIC INDICATED
--- NOTE | 2020-04-08 18:58 | NUR ---
REPORT GIVEN TO OCTAVIO STEELE.
--- NOTE | 2020-04-08 18:58 | NUR ---
BEDSIDE REPORT RECEIVED FROM IVETTE GOMEZ. PT REPOSITIONED IN BED, PILLOW PLACED UNDER LEFT SIDE. PT HYPERVENTILATING AND TELLING NURSES IN THE MIDST OF REPOSITIONING THAT SHE'S UNCOMFORTABLE. PT EDUCATED THAT SHE NEEDS TO BE IN A POSITION THAT RELIEVES THE PRESSURE FROM HER SACRAL SORE. PT EDUCATED THAT SHE WILL RECEIVE MORE PAIN MEDS, PT ALSO EDUCATED TO TAKE DEEP BREATHS TO HELP HER RELAX AND RELIEVE HER OWN PAIN. CALL LIGHT AND CELL PHONE IN REACH, BED RAILS UP X2.
[2020-04-08] MEDS ORDERED: CEFTRIAXONE PMX 1GM/50ML 50 ML IVPB ONE (19:30)
[2020-04-08] MEDS ORDERED: CEFTRIAXONE PMX 1GM/50ML 50 ML ONE (19:47)
[2020-04-08] MEDS ORDERED: SODIUM CHLORIDE FLUSH 10ML SYR IVF PRN (20:00)
--- NOTE | 2020-04-08 20:03 | NUR ---
PT ON THE VERGE OF TEARS, ANXIOUS, STATES "I'M JUST SO SCARED." PT'S RESPIRATIONS BECOMING RAPID AND SHALLOW. PT'S FEARS ADDRESSED, PT UPDATED ON POC. THIS RN OFFERED EXTENSIVE EDUCATION ABOUT DISEASE PROCESS AND EXPECTATIONS FOR STAY. PT EDUCATED TO SLOW BREATHING, PT ATTEMPTING.
--- NOTE | 2020-04-08 20:49 | NUR ---
PT STATES "I'M ALL TWISTED." PT REPOSITIONED IN BED, PILLOW MOVED TO RIGHT SIDE, PT LAYING FLAT IN BED. CAREFUL ATTENTION TO ENSURE ALL SHEETS AND GOWN ON BED LAYING FLAT, PT CONTINUES TO STATE "I'M ALL TWISTED." PT'S VOICE SHAKING, TALKING IN FULL SENTENCES, STATES "I CAN'T BREATHE" PT SATING 95% ON RA. PT EDUCATED TO SLOW BREATHING, TAKE DEEP BREATHES THROUGH NOSE. PT STATES "MY FOOT IS PURPLE MY BANDAGE IS TOO TIGHT." PT HAS STRONG DORSAL PEDAL PUSLE, FOOT IS SAME TEMP OTHER FOOT AND IS NORMAL FOR HER SKIN COLOR. ERP TO BEDSIDE, PT NO LONGER CRYING WHILE TALKING WITH ERP, NO SIGNS OF OBVIOUS DISTRESS. CALL LIGHT AND CELL PHONE IN REACH. Addendum: 04/08/20 at 2053 by RIKA ADMITTING MD TO BEDSIDE. NOT ERP.
--- NOTE | 2020-04-08 21:09 | NUR ---
PT LAYING IN BED, ON PHONE, RESPIRATIONS EVEN AND UNLABORED. SATING 98% ON RA. NO SIGNS OF DISTRESS.
[2020-04-08] MEDS ORDERED: PREG25CA PO (21:13)
[2020-04-08] MEDS ORDERED: HYDR-2995 PO (21:13)
[2020-04-08] MEDS ORDERED: ZOLP5TAB6 PO (21:13)
[2020-04-08] MEDS ORDERED: LIDODERM 5% PATCH TD PRN (21:30)
[2020-04-08] MEDS ORDERED: DIAZEPAM 5 MG TABLET PO ONE (21:30)
[2020-04-08] MEDS ORDERED: DOCUSATE 100 MG CAPSULE PO PRN (21:30)
[2020-04-08] MEDS ORDERED: MELATONIN 5 MG TABLET PO PRN (21:30)
[2020-04-08] MEDS ORDERED: ONDANSETRON ODT 4 MG PO PRN (21:30)
--- NOTE | 2020-04-08 21:36 | NUR ---
PT PROVIDED WITH FOOD, ALL NEEDS MET AT THIS TIME. NO SIGNS OF DISTRESS.
--- NOTE | 2020-04-08 21:53 | NUR ---
REPORT GIVEN TO DARLIN VILLATORO RN.
--- NOTE | 2020-04-08 22:08 | NUR ---
PT UPDATED ON POC, INCLUDING THAT SHE WILL BE GOING TO UPSTAIRS WHEN A TECH IS AVAILABLE TO MOVE HER. NO SIGNS OF DISTRESS.
[2020-04-08] MEDS ORDERED: DIAZEPAM 5 MG TABLET ONE (22:21)
[2020-04-08] MEDS ORDERED: GABAPENTIN 300 MG CAPSULE ONE (22:21)
[2020-04-08] MEDS: GABAPENTIN 300 MG CAPSULE PO SCH (22:23)
[2020-04-08] MEDS ORDERED: OXYcodone IR 5MG TABLET PO ONE (23:30)
[2020-04-08 23:32] VITALS: BP 142/82
[2020-04-09 00:06] LABS: AMPHETAMINE SCREEN, URINE Positive (Negative); BARBITURATE SCREEN, URINE Negative (Negative); BENZODIAZEPINE SCREEN, URINE Negative (Negative); CANNABINOID SCREEN, URINE Positive (Negative); COCAINE SCREEN, URINE Negative (Negative); METHADONE SCREEN, URINE Negative (Negative); OPIATE SCREEN, URINE Positive (Negative)
[2020-04-09 01:04] VITALS: BP 114/72
[2020-04-09] MEDS: METHOCARBAMOL 750 MG TABLET PO PRN (01:38)
[2020-04-09] MEDS: DIAZEPAM 5 MG TABLET PO PRN ×3 (05:53→21:09)
[2020-04-09] MEDS: OXYcodone IR 5MG TABLET PO PRN ×3 (06:26→21:09)
[2020-04-09 08:37] VITALS: BP 104/70
[2020-04-09] MEDS: GABAPENTIN 300 MG CAPSULE PO SCH ×3 (08:53→20:27)
[2020-04-09 09:29] LABS: ANION GAP 7 mmol/L (5-15); CALCIUM 9.9 mg/dL (8.5-10.1); CHLORIDE 106 mmol/L (98-107)
[2020-04-09 09:30] LABS: CREATININE 0.69 mg/dL (0.55-1.02)
[2020-04-09 09:45] LABS: MEAN CORPUSCULAR HEMOGLOBIN 22.1 pg (27.0-34.8); MEAN CORPUSCULAR HGB CONC 30.6 g/dL (32.4-35.8); MEAN CORPUSCULAR VOLUME 72.1 fL (80-100); MEAN PLATELET VOLUME 8.6 fL (7.4-10.4); PLATELET COUNT 300 x10^3/uL (130-400); RED BLOOD COUNT 6.34 x10^6/uL (3.82-5.3); RED CELL DISTRIBUTION WIDTH 23.2 % (9.6-15.2)
[2020-04-09 09:47] LABS: MD YES
[2020-04-09 09:50] LABS: ANISOCYTOSIS 1+; EOS#(MANUAL) 0.26 x10^3/uL (0.0-0.4); EOS% (MANUAL) 5 % (1-7); LYMPHS% (MANUAL) 27 % (22-44); METAMYELOCYTES# (MANUAL) 0.05 x10^3/uL (0-0); METAMYELOCYTES% (MANUAL) 1 % (0-1); MICROCYTOSIS 1+; MONOS#(MANUAL) 0.36 x10^3/uL (0.3-2.7); MONOS% (MANUAL) 7 % (2-9); SEG#(MANUAL) 3.12 x10^3/uL (1.8-6.8); SEGS% (MANUAL) 60 % (42-75)
[2020-04-09 09:51] LABS: <PLATELET ESTIMATE> ADEQUATE; <PLT MORPHOLOGY> NORMAL PLT MORPH; OVALOCYTES 1+
[2020-04-09] MEDS ORDERED: POTASSIUM CHLORIDE 20 MEQ TAB.ER.PRT PO ONE (10:30)
[2020-04-09 12:21] VITALS: BP 136/85
[2020-04-09] MEDS ORDERED: LORazepam 2 MG/ML, 1ML IVPush PRN (13:30)
[2020-04-09] MEDS ORDERED: GADOTERATE 7.5 MMOL/15 ML SYR ONE (15:50)
[2020-04-09] MEDS: NYSTATIN 500,000 UNITS/5 ML UDC PO SCH ×2 (16:24→20:28)
[2020-04-09] MEDS ORDERED: CEFTRIAXONE PMX 1GM/50ML 50 ML IV SCH (19:30)
[2020-04-09 20:10] VITALS: BP 102/69
[2020-04-10 00:19] VITALS: BP 113/68
[2020-04-10] MEDS: OXYcodone IR 5MG TABLET PO PRN ×3 (05:38→22:13)
[2020-04-10] MEDS: NYSTATIN 500,000 UNITS/5 ML UDC PO SCH ×4 (05:38→20:09)
[2020-04-10] MEDS: DIAZEPAM 5 MG TABLET PO PRN ×2 (05:38→14:26)
[2020-04-10 06:00] LABS: ANION GAP 8 mmol/L (5-15); CHLORIDE 111 mmol/L (98-107)
[2020-04-10 06:01] LABS: CREATININE 0.52 mg/dL (0.55-1.02)
[2020-04-10 06:15] LABS: MEAN CORPUSCULAR HEMOGLOBIN 21.9 pg (27.0-34.8); MEAN CORPUSCULAR HGB CONC 30.7 g/dL (32.4-35.8); MEAN CORPUSCULAR VOLUME 71.3 fL (80-100); MEAN PLATELET VOLUME 8.9 fL (7.4-10.4); PLATELET COUNT 318 x10^3/uL (130-400); RED BLOOD COUNT 5.57 x10^6/uL (3.82-5.3); RED CELL DISTRIBUTION WIDTH 22.1 % (9.6-15.2)
[2020-04-10 06:48] LABS: BASOPHILS # (AUTO) 0.03 x10^3/uL (0-0.1); BASOPHILS % (AUTO) 1 % (0-1); EOSINOPHILS % (AUTO) 7 % (1-7); LYMPHOCYTES # (AUTO) 1.31 x10^3/uL (1-3.4); LYMPHOCYTES % (AUTO) 32 % (22-44); MD SCAN; MONOCYTES # (AUTO) 0.37 x10^3/uL (0.2-0.8); MONOCYTES % (AUTO) 9 % (2-9); NEUTROPHILS # (AUTO) 2.14 x10^3/uL (1.8-6.8); NEUTROPHILS % (AUTO) 52 % (42-75)
[2020-04-10 09:01] VITALS: BP 103/66
[2020-04-10] MEDS: GABAPENTIN 300 MG CAPSULE PO SCH ×3 (09:09→20:09)
[2020-04-10] MEDS: METHOCARBAMOL 750 MG TABLET PO PRN (10:36)
[2020-04-10 14:23] VITALS: BP 107/68
[2020-04-10] MEDS ORDERED: OxyconTIN ER 10 MG TAB.ER ONE (15:33)
[2020-04-10] MEDS: OxyconTIN ER 20 MG TAB.ER PO SCH (15:36)
[2020-04-10] MEDS ORDERED: FLUCONAZOLE 100 MG TABLET ONE (15:59)
[2020-04-10] MEDS: FLUCONAZOLE 200 MG TABLET PO SCH (16:09)
[2020-04-10 16:13] LABS: HCT (SEDRATE) 39.5 % (34.6-47.8)
[2020-04-10] MEDS ORDERED: FLUCONAZOLE 50 MG TABLET PO ONE (17:00)
[2020-04-10 19:43] VITALS: BP 108/73
[2020-04-10] MEDS: METHOCARBAMOL 750 MG TABLET PO SCH (22:09)
[2020-04-11 02:36] VITALS: BP 105/72
[2020-04-11] MEDS: OxyconTIN ER 20 MG TAB.ER PO SCH ×2 (03:30→15:30)
[2020-04-11] MEDS ORDERED: OxyconTIN ER 10 MG TAB.ER ONE ×2 (03:32→15:32)
[2020-04-11] MEDS: METHOCARBAMOL 750 MG TABLET PO SCH ×3 (05:35→22:59)
[2020-04-11] MEDS: NYSTATIN 500,000 UNITS/5 ML UDC PO SCH ×4 (05:36→21:52)
[2020-04-11 07:57] VITALS: BP 102/71
[2020-04-11] MEDS: FLUCONAZOLE 200 MG TABLET PO SCH (08:01)
[2020-04-11] MEDS: GABAPENTIN 300 MG CAPSULE PO SCH ×3 (08:01→21:53)
[2020-04-11] MEDS: DIAZEPAM 5 MG TABLET PO PRN (08:01)
[2020-04-11] MEDS: OXYcodone IR 5MG TABLET PO PRN ×2 (11:31→21:53)
[2020-04-11 12:43] VITALS: BP 104/72
[2020-04-11 20:02] VITALS: BP 119/70
[2020-04-12 01:47] VITALS: BP 118/75
[2020-04-12] MEDS ORDERED: OxyconTIN ER 10 MG TAB.ER ONE (03:19)
[2020-04-12] MEDS: OxyconTIN ER 20 MG TAB.ER PO SCH ×2 (03:30→15:35)
[2020-04-12 05:30] LABS: ALBUMIN 3.1 g/dL (3.4-5.0); ANION GAP 5 mmol/L (5-15); CHLORIDE 105 mmol/L (98-107)
[2020-04-12 05:35] LABS: ALANINE AMINOTRANSFERASE 22 U/L (12-78); ALKALINE PHOSPHATASE 109 U/L (45-117); CREATININE 0.56 mg/dL (0.55-1.02); TOTAL PROTEIN 6.6 g/dL (6.4-8.2)
[2020-04-12 05:54] LABS: BILIRUBIN,TOTAL 0.2 mg/dL (0.2-1.0)
[2020-04-12] MEDS: NYSTATIN 500,000 UNITS/5 ML UDC PO SCH (06:26)
[2020-04-12] MEDS: OXYcodone IR 5MG TABLET PO PRN (06:31)
[2020-04-12 06:49] VITALS: BP 108/72
[2020-04-12] MEDS: METHOCARBAMOL 750 MG TABLET PO SCH (08:29)
[2020-04-12] MEDS: GABAPENTIN 300 MG CAPSULE PO SCH ×2 (08:29→15:35)
[2020-04-12] MEDS: FLUCONAZOLE 200 MG TABLET PO SCH (08:30)
[2020-04-12] MEDS: DIAZEPAM 5 MG TABLET PO PRN ×2 (10:05→18:17)
[2020-04-12] MEDS ORDERED: METHOCARBAMOL 750 MG TABLET PO PRN (10:30)
[2020-04-12] MEDS ORDERED: METH750T2 PO (14:12)
[2020-04-12] MEDS ORDERED: OXYC5TAB3 PO (14:12)
[2020-04-12] MEDS ORDERED: OXYC20TA59 PO (14:12)
[2020-04-12 15:04] VITALS: BP 102/69
== END 2020-04-12 20:05 | disposition home or self-care (01) | DRG 347 ==
LOC: ED 18:34 → EDIP 21:48 → 3N 22:42
PROVIDERS: ADMIT Internal Medicine; ATTEND Internal Medicine
PROC: 0T9B70Z Drainage of Bladder with Drainage Device, Via Natural or Artificial Opening (ICD-10-PCS; principal; 2020-04-08)
DX: M54.16 Radiculopathy, lumbar region (principal); B15.9 Hepatitis A without hepatic coma; B18.2 Chronic viral hepatitis C; B37.3 Candidiasis of vulva and vagina; B95.61 Methicillin susceptible Staphylococcus aureus infection as the cause of diseases classified elsewhere; B96.20 Unspecified Escherichia coli [E. coli] as the cause of diseases classified elsewhere; D64.9 Anemia, unspecified; Z88.8 Allergy status to other drugs, medicaments and biological substances; E87.6 Hypokalemia; F11.20 Opioid dependence, uncomplicated; F15.10 Other stimulant abuse, uncomplicated; F41.9 Anxiety disorder, unspecified; R53.2 Functional quadriplegia; M79.7 Fibromyalgia; Z76.5 Malingerer [conscious simulation]; Z86.19 Personal history of other infectious and parasitic diseases; Z91.19 Patient's noncompliance with other medical treatment and regimen; Z74.01 Bed confinement status; Z98.1 Arthrodesis status; G89.4 Chronic pain syndrome; I10 Essential (primary) hypertension; M06.9 Rheumatoid arthritis, unspecified; M21.371 Foot drop, right foot; M41.9 Scoliosis, unspecified; M48.061 Spinal stenosis, lumbar region without neurogenic claudication; N30.90 Cystitis, unspecified without hematuria; Z16.12 Extended spectrum beta lactamase (ESBL) resistance; Z86.14 Personal history of Methicillin resistant Staphylococcus aureus infection; Z96.652 Presence of left artificial knee joint; L89.153 Pressure ulcer of sacral region, stage 3; L97.319 Non-pressure chronic ulcer of right ankle with unspecified severity; F22 Delusional disorders
CPT/HCPCS: 36415; 72110; 72158; 80048; 80053; 80307; 81001; 82040; 83605; 85025; 85651; 86140; 86708; 87040; 87086; 87106; 93005; G0378; J0696; J1170; J2405; Q0162; A9575; J2060

== ENCOUNTER 2020-04-25 09:24 | Emergency (ER) | payer MEDICAID ==
[~2020-04-25] VITALS: Ht 165.1 cm; Wt 70.0 kg
[~2020-04-25 09:24] MED LIST changes: +HYDR-2995 PO; -OXYC-432 PO; +OXYC1TAB18 PO; +OXYC20TA59 PO; +PREG25CA PO; +ZOLP5TAB6 PO
--- NOTE | 2020-04-25 09:29 | NUR ---
BROUGHT IN BY [facility] FOR CHIEF COMPLAINT OF LIM CATHETER "SLIPPING OUT" AND PRESSURE ULCER WOUND PAIN. RECENTLY AT [facility] FOR 2.5 MONTHS FOR WOUND CARE. PT STATES SHE IS BED RIDDEN SINCE BACK SURGERY.
[2020-04-25 10:19] LABS: MICROSCOPIC INDICATED
[2020-04-25 10:23] LABS: ALBUMIN 3.4 g/dL (3.4-5.0); ANION GAP 6 mmol/L (5-15); CALCIUM 9.1 mg/dL (8.5-10.1); CHLORIDE 117 mmol/L (98-107); CREATININE 0.57 mg/dL (0.55-1.02)
[2020-04-25 10:26] LABS: BASOPHILS # (AUTO) 0.02 x10^3/uL (0-0.1); BASOPHILS % (AUTO) 0 % (0-1); EOSINOPHILS # (AUTO) 0.22 x10^3/uL (0-0.4); EOSINOPHILS % (AUTO) 4 % (1-7); LYMPHOCYTES # (AUTO) 1.36 x10^3/uL (1-3.4); LYMPHOCYTES % (AUTO) 26 % (22-44); MD NO; MEAN CORPUSCULAR HEMOGLOBIN 21.6 pg (27.0-34.8); MEAN CORPUSCULAR VOLUME 69.6 fL (80-100); MEAN PLATELET VOLUME 8.3 fL (7.4-10.4); MONOCYTES # (AUTO) 0.29 x10^3/uL (0.2-0.8); MONOCYTES % (AUTO) 6 % (2-9); NEUTROPHILS % (AUTO) 64 % (42-75); PLATELET COUNT 235 x10^3/uL (130-400); RED BLOOD COUNT 5.44 x10^6/uL (3.82-5.3); RED CELL DISTRIBUTION WIDTH 21.5 % (9.6-15.2)
[2020-04-25] MEDS ORDERED: PHENAZOPYRIDINE 200 MG TABLET ONE (10:29)
[2020-04-25] MEDS ORDERED: SODIUM CHLORIDE 0.9% 1,000ML IVBOLUS ONE (10:30)
[2020-04-25] MEDS ORDERED: POTASSIUM CHLORIDE 20 MEQ TAB.ER.PRT PO ONE (10:30)
[2020-04-25] MEDS ORDERED: PHENAZOPYRIDINE 200 MG TABLET PO ONE (10:30)
--- NOTE | 2020-04-25 10:34 | NUR ---
MISSY PEARCE BEDSIDE FOR EVALUATION
[2020-04-25] MEDS ORDERED: POTASSIUM CHLORIDE 20 MEQ TAB.ER.PRT ONE (10:50)
[2020-04-25] MEDS ORDERED: CEFTRIAXONE PMX 1GM/50ML 50 ML ONE (10:51)
[2020-04-25] MEDS ORDERED: CEFTRIAXONE PMX 1GM/50ML 50 ML IV ONE (11:00)
--- NOTE | 2020-04-25 11:01 | NUR ---
NEW LIM CATH PLACED PER ORDER&PROTOCOL
--- NOTE | 2020-04-25 12:03 | NUR ---
Pt resting in bed, call light in reach. Waiting for medical ride home.
--- NOTE | 2020-04-25 12:57 | NUR ---
Pt resting in bed, call light in reach. Waiting for medical ride home.
--- NOTE | 2020-04-25 13:11 | NUR ---
RECEIVED REPORT FROM IVETTE TUCKER. PT RESTING ON GURNEY. OZZY. VSS. PT AWARE SHE WILL GO HOME VIA EMS. DIAMANTE NAVA RN AWARE OF NEED.
--- NOTE | 2020-04-25 14:12 | NUR ---
PT RESTING ON GURGEOVANI. NADN. VSS. TEODORO CARE PERFORMED. WOUND CARE PERFORMED. PT PROVIDED W/ SUPPLIES FOR WOUND CARE AT HOME. AWAITING [facility] ETA FOR PT TO GO HOME.
--- NOTE | 2020-04-25 15:02 | NUR ---
PT PROVIDED W/ DIET TRAY AND REPOSITIONED FOR COMFORT.
--- NOTE | 2020-04-25 15:25 | NUR ---
[facility] BE[facility] UP YET THEY ARE WAITING AUTH FROM Mary NAVA, THROUGHPUT RN AWARE.
[2020-04-25 15:32] VITALS: BP 133/63
--- NOTE | 2020-04-25 15:32 | NUR ---
PT RESTING ON GURNEY. NADN. URBANO.
--- NOTE | 2020-04-25 17:32 | NUR ---
SPOKE W/ BANDAR AT [facility] CLINICAL COMMUNICATION WHO STATES [facility] DRIVERS SHOULD BE ON THEIR WAY TO PICK PT UP TO TAKE HOME.
== END 2020-04-25 17:46 | disposition home or self-care (01) ==
LOC: ED 10:00
DX: N30.00 Acute cystitis without hematuria (principal); L89.152 Pressure ulcer of sacral region, stage 2; E87.6 Hypokalemia; F15.10 Other stimulant abuse, uncomplicated; I10 Essential (primary) hypertension; M79.7 Fibromyalgia; M06.9 Rheumatoid arthritis, unspecified
CPT/HCPCS: 36415; 51702; 80048; 81001; 82040; 85025; 87077; 87086; 87186; 96361; 96365; 99285; J0696; J7030

== ENCOUNTER 2020-05-06 00:29 | Emergency (ER) | payer MEDICAID ==
[~2020-05-06] VITALS: Ht 167.6 cm; Wt 74.0 kg
--- NOTE | 2020-05-06 01:08 | NUR ---
LATE ENTRY SUMMARY NOTE: PT ADMITS TO METH USE TODAY. PT'S AFFECT WILL CHANGE FROM CALM TO CRYING WHEN THIS RN ASKS IF THE PT WANTS HER HOB UP FOR POSITION TO COMFORT. WHEN ASKED IF SHE HAD ANY MEDICAL COMPLAINTS PT STATED "MY HEART HURTS FROM BEING MEAN TO PEOPLE." PT STATES SHE HAS A SACRAL PRESSURE ULCER FOR WHICH SHE WAS RECENTLY ADMITTED, BUT SHE WILL NOT LET THIS RN ASSESS. PT EDUCATED ABOUT THE NEED FOR ASSESSMENT, PT STILL REFUSES. CURRENTLY PT CONNECTED TO BP, AND O2 MONITORS. RESPIRATONS EVEN AND UNLABORED. BEDRAILS UP AND CALL LIGHT IN REACH.
[2020-05-06 01:11] LABS: MEAN CORPUSCULAR HEMOGLOBIN 21.8 pg (27.0-34.8); MEAN CORPUSCULAR HGB CONC 31.6 g/dL (32.4-35.8); MEAN CORPUSCULAR VOLUME 69.2 fL (80-100); MEAN PLATELET VOLUME 8.1 fL (7.4-10.4); PLATELET COUNT 247 x10^3/uL (130-400); RED CELL DISTRIBUTION WIDTH 22.9 % (9.6-15.2)
[2020-05-06 01:21] LABS: ALANINE AMINOTRANSFERASE 23 U/L (12-78); ALBUMIN 3.3 g/dL (3.4-5.0); ANION GAP 6 mmol/L (5-15); CALCIUM 8.9 mg/dL (8.5-10.1); CHLORIDE 116 mmol/L (98-107); CREATININE 0.58 mg/dL (0.55-1.02)
[2020-05-06 01:30] LABS: BASOPHILS # (AUTO) 0.01 x10^3/uL (0-0.1); BASOPHILS % (AUTO) 0 % (0-1); EOSINOPHILS # (AUTO) 0.11 x10^3/uL (0-0.4); EOSINOPHILS % (AUTO) 3 % (1-7); LYMPHOCYTES % (AUTO) 27 % (22-44); MD MORPH REVIEW ONLY; MONOCYTES # (AUTO) 0.31 x10^3/uL (0.2-0.8); MONOCYTES % (AUTO) 7 % (2-9); NEUTROPHILS # (AUTO) 2.74 x10^3/uL (1.8-6.8); NEUTROPHILS % (AUTO) 63 % (42-75)
[2020-05-06 01:31] LABS: ALKALINE PHOSPHATASE 143 U/L (45-117); BILIRUBIN,TOTAL 0.2 mg/dL (0.2-1.0); SALICYLATE LEVEL 3.4 mg/dL (2.8-20.0); TOTAL PROTEIN 6.9 g/dL (6.4-8.2)
[2020-05-06 01:32] LABS: ANISOCYTOSIS 1+; OVALOCYTES 1+
[2020-05-06 01:33] LABS: MICROCYTOSIS 2+; TEAR DROPS 1+
[2020-05-06 01:35] LABS: <PLATELET ESTIMATE> ADEQUATE; <PLT MORPHOLOGY> NORMAL PLT MORPH
--- NOTE | 2020-05-06 01:39 | NUR ---
BREAK RN: PT ON CELL PHONE IN ROOM. VS STABLE. NO ACUTE DISTRESS NOTED. CALL LIGHT IN PLACE. WILL CONTINUE TO MONITOR WHILE PRIMARY RN IS ON BREAK.
[2020-05-06 02:26] LABS: AMPHETAMINE SCREEN, URINE Positive (Negative); BARBITURATE SCREEN, URINE Negative (Negative); BENZODIAZEPINE SCREEN, URINE Positive (Negative); CANNABINOID SCREEN, URINE Positive (Negative); COCAINE SCREEN, URINE Negative (Negative); METHADONE SCREEN, URINE Negative (Negative); OPIATE SCREEN, URINE Negative (Negative)
--- NOTE | 2020-05-06 03:27 | NUR ---
PT CRYING, STATING "I'M SO INCAPABLE OF LOVE." WHEN EDUCATED THAT THIS RN AND PAUL RN WERE GOING TO HELP POSITION HER IN BED SHE GRIPPED THE BEDRAILS AND REFUSED TO MOVE. PT YELLING "I CAN'T" WHEN EDUCATED TO TAKE A DEEP BREATH TO TRY AND CALM HERSELF. PT HAD JUST HUNG UP THE PHONE WITH HER SISTER WHEN THIS RN ENTERED THE ROOM, WHEN TOLD SHE COULD CALL HER AGAIN TO TRY AND HELP HER CALM DOWN, PT STATED "SHE WON'T ANSWER." PT REMAINS CONNECTED TO BP AND O2 MONITORS WITH CALL LIGHT IN REACH AND BEDRAILS UPX2. SHE'S IN VIEW OF THE SITTER.
--- NOTE | 2020-05-06 03:38 | NUR ---
PT ON PHONE AGAIN, CONVERSING WITHOUT DISTRESS.
--- NOTE | 2020-05-06 04:14 | NUR ---
PT REMAINS CONVERSING ON PHONE AND IN VIEW OF SITTER.
[2020-05-06] MEDS ORDERED: LORazepam 1MG TABLET ONE (04:25)
[2020-05-06] MEDS ORDERED: LORazepam 1MG TABLET PO ONE (04:30)
--- NOTE | 2020-05-06 04:40 | NUR ---
BELONGINGS PLACED IN 1 BAG AND PUT IN LOCKER. LIGHTS OFF TO PROMOTE REST. WILL GIVEN MEDICATION TIME TO TAKE EFFECT AND WILL REEDUCATE PT ABOUT NECESSITY TO ASSESS WOUND. PT'S RESPIRATIONS REMAIN EVEN AND UNLABORED AND PT REMAINS IN VIEW OF THE SITTER WITH CALL LIGHT IN REACH.
--- NOTE | 2020-05-06 05:14 | NUR ---
THIS RN BACK TO BEDSIDE TO EDUCATE PT ABOUT NEED FOR SKIN ASSESSMENT, PT STILL REFUSING. DISCUSSED POC WITH ERP, PT TO REMAIN OF HOLD FOR FAILURE TO THRIVE. SOCIAL WORK CONSULT ORDERED. PT REMAINS LAYING IN BED, RESPIRATIONS EVEN AND UNLABORED, IN VIEW OF THE SITTER. WHEN THIS RN WAS AT BEDSIDE PT CONITNUALLY STATED "I'M SCARED OF GOING TO HELL." FEAR ADDRESSED.
--- NOTE | 2020-05-06 05:38 | NUR ---
PT CONVERSING WITH SITTER.
--- NOTE | 2020-05-06 06:24 | NUR ---
PT GIVEN WATER AND BLANKET. PT IS MORE CALM THAN PREVIOUSLY, BUT REFUSING TO ANSWER QUESTIONS. RESPIRATIONS REMAIN EVEN AND UNLABORED.
--- NOTE | 2020-05-06 06:54 | NUR ---
MT: PSYCH PACKET SENT TO [facility], [facility], [facility], AND [facility].
--- NOTE | 2020-05-06 06:55 | NUR ---
REPORT GIVEN TO IVETTE GOMEZ.
--- NOTE | 2020-05-06 07:06 | NUR ---
report received from emili gutierrez.
--- NOTE | 2020-05-06 07:28 | NUR ---
diet tray ordered at this time.
--- NOTE | 2020-05-06 08:12 | NUR ---
diet tray provided at this time.
--- NOTE | 2020-05-06 09:09 | NUR ---
when this rn assessed this pt, pt stated"i'm dying now." pt refused to assess wound.
--- NOTE | 2020-05-06 09:57 | NUR ---
REPORT GIVEN TO HUGH SHAFER.
[2020-05-06] MEDS ORDERED: OLANZAPINE 5 MG TABLET ONE (12:55)
[2020-05-06] MEDS: ESCITALOPRAM 10MG TABLET PO SCH (13:32)
[2020-05-06] MEDS: OLANZAPINE 5 MG TABLET PO SCH (13:32)
--- NOTE | 2020-05-06 15:54 | NUR ---
PT RESTING IN [facility]. VSS. FOOD TRAY ORDERED
--- NOTE | 2020-05-06 16:31 | NUR ---
PT SOILD HERSELF. PT CLEANED UP. PT HAS SACRAL WOUND. NEW WOUND DRESSING APPLIED.
[2020-05-06 16:54] LABS: MICROSCOPIC INDICATED
--- NOTE | 2020-05-06 22:16 | NUR ---
REPORT RECEIVED FROM IVETTE REESE. ASSUMED CARE OF PT. PT DENIES ANY NEEDS AT THIS TIME. NO DISTRESS NOTED.
--- NOTE | 2020-05-06 23:08 | NUR ---
Referred this patient to Dr. Cordova, he will decline this referral; patient does not meet basic admission criteria for U.
--- NOTE | 2020-05-06 23:28 | NUR ---
PT WAS INCONTINENT OF STOOL. PT THROUGHLY CLEANED. LIM TUBING AND VAGINAL AREA CLEANED WITH THERAWORKS WIPES. PT NOTED TO HAVE NONBLANCHABLE REDNESS AROUND ANAL AREA, SACRAL WOUND NOTED, DRESSING COVERING WOUND. DRESSING NOT SOILED, LEFT IN PLACE. BARRIER CREAM APPLIED TO PERINEUM. PT MOVED TO A HOSPITAL BED, PLACED ON WAFFLE MATTRESS. PT PADDED WITH PILLOWS AND PLACED ON LEFT SIDE. PT HAS FOOD TRAY AT BEDSIDE THAT HAS NOT BEEN EATEN. SHE DENIES WANTING FOOD AT THIS TIME. PT REQUESTS SOMETHING TO DRINK. WATER PROVIDED. PT'S LIM ALSO EMPTIED, 900ML OF DARK YELLOW URINE. ROOM REMAINS SECURE. SITTER OUTSIDE DOOR. PT DENIES ANY OTHER NEEDS AT THIS TIME
--- NOTE | 2020-05-07 | NUR ---
TP RN: EXTENSIVE CONVERSATION HAD WITH ERP REGARDING POSSIBILITY OF ADMIT FOR TX OF UTI. PER ERP, PT DOES NOT MEET ADMIT CRITERIA. ABX ORDERED FOR TX OF UTI. CHART REVIEW REVEALED THAT U IS NOT ACCEPTING PATIENT SECONDARY TO NOT "MEETING BASIC ADMISSION CRITERIA", HOWEVER PSYCH MD DOWNING SUGGESTS THAT PATIENT IS SUICIDAL AND ADMITS TO HALLUCINATIONS. SALESPERSON [place] AND GLASSWARE AND PRIMARY RN AWARE. NO DISPO AT THIS TIME.
--- NOTE | 2020-05-07 01:15 | NUR ---
assumed care of pt. report from Leila STEELE. pt here on legal hold for failure to care for self. pt is currently resting on hospital bed with waffle mattress in position of comfort. no apparent distress. hartman to drainage. room secured and sitter present for safety
--- NOTE | 2020-05-07 01:30 | NUR ---
pt has been turned for comfort
--- NOTE | 2020-05-07 02:00 | NUR ---
no changes. pt resting. no family at bedside. room secured and sitter present for safety
--- NOTE | 2020-05-07 03:00 | NUR ---
pt turned for prevention of skin breakdown. well tolerated. no apparent distress at this time. room secure. sitter present for safety
--- NOTE | 2020-05-07 04:00 | NUR ---
pt continues resting in position of comfort. pt is not sleeping but is resting quietly. no apparent distress. no new c/o. room secure. sitter present for safety
--- NOTE | 2020-05-07 05:06 | NUR ---
no changes. pt resting quietly in no apparent distress
--- NOTE | 2020-05-07 05:40 | NUR ---
pt positioning and turned for comfort. pt is incontinent of stool. pt cleaned and gladys care given. barrier cream applied and fresh chucks placed. pt able to assist with positioning. pt has dressing to low back/coccyx area that is intact. +blanchable redness to buttock area. pt did not eat anything from her tray that was at bedside overnight. pt has been taking small sips of PO fluids. pt has no teeth and only has top dentures that she has removed. upper denture placed in cup and labeled. pt assisted with applesauce and detention through the cup pt started feeding herself. full cup of applesauce consumed. pt also has PO pudding at bedside. pt also has a dressing to her L knee that is dated 04/12/20, but she will not allow assessment of it at this time. room secure and sitter present for safety
--- NOTE | 2020-05-07 06:05 | NUR ---
pt has eaten 100% of pudding cup. pt resting in position of comfort. room secure. sitter present for safety
--- NOTE | 2020-05-07 07:04 | NUR ---
report to Vincenzo STEELE
--- NOTE | 2020-05-07 07:04 | NUR ---
TOOK REPORT FROM PAUL DILLARD RN, [facility] C[facility] AT THIS TIME. ROOM IS SAFE AND SECURE, DEVANG SITTER OUTSIDE ROOM. RR ARE EVEN AND UNLABORD. WHEN ASKED IF SHE NEEDS ANYTHING PT STATES "FUCK"
--- NOTE | 2020-05-07 07:38 | NUR ---
CALLED WOUND CARE AND TALKED TO EVANGELINA. SHE REPORTS THAT SHE WILL HAVE A INFORMATICS PHYSICIAN CALL WHEN THEY GET IN THIS MORNING.
--- NOTE | 2020-05-07 07:42 | NUR ---
CHARLIE STEELE FROM WOUND CARE CALLED, REPORTS THAT SHE WILL BE DOWN TO EVAL PT THIS MORNING. URINAR CATHETER REMOVAL PROTOCOL ASSESSED. WILL CONSULT WITH TUBING OILER TO EVAL THE NEED FOR CONTINUATION OF PT'S LIM.
--- NOTE | 2020-05-07 08:06 | NUR ---
ED DIET TRAY GIVEN, PT CRYING IN ROOM. ASKED WHAT SHE NEEDS PT WOULD NOT RESPOND.
[2020-05-07] MEDS ORDERED: NITROFURANTOIN (MACROBID) 100 MG CAPSULE ONE (08:42)
--- NOTE | 2020-05-07 08:42 | NUR ---
BREAK RN: PT VSS NOTED. PT HAD NOT TOUCHED HER BREAKFAST TRAY. I FED HER AND SHE WAS COOPERATIVE IN EATING AND DRINKING. CONSUMED APPROX 25% OF MEAL AND DRANK 150ML FLUID.
[2020-05-07] MEDS ORDERED: NITROFURANTOIN (MACROBID) 100 MG CAPSULE PO ONE (09:00)
[2020-05-07] MEDS: OLANZAPINE 5 MG TABLET PO SCH (09:00)
--- NOTE | 2020-05-07 09:36 | NUR ---
EZEQUIEL WOUND RN CAME DOWN AND ASSESSED AND DRESSED PT'S WOUNDS. PRIMARY RN AND EZEQUIEL AGREE THAT PT'S LIM CATH WAS NOT NEEDED FOR WOUND HEALING. PER CATH REMOVAL PROTOCOL CATHETER WAS REMOVED AND A PUREWICK WAS PUT IN.
--- NOTE | 2020-05-07 09:43 | NUR ---
THROUGHPUT RN::SPOKE WITH NALINI [facility] MAKE UP OPERATOR WHO REQUESTED TO REFAX PACKET FOR PT TO [phone]. THIS WAS DONE. NALINI STATED THERE ARE NO BEDS AVAILABLE AT THIS TIME AND CAN NOT ADMIT AY PTS TODAY, IF BED OPENS UP THEY WILL CALL US.
--- NOTE | 2020-05-07 09:48 | NUR ---
THROUGHPUT RN::ALFRED THAKUR AT [facility], PT DENIED BY THEIR DOCTOR FOR MEDICAL COMPLEXITY AND BEING BEDRIDDEN AND DENIED DUE TO AN INSURANCE ISSUE.
--- NOTE | 2020-05-07 09:55 | NUR ---
THROUGHPUT RN::CALLED [facility], SPOKE WITH NUBIA, WHO STATED SHE WILL FORWARD PT PACKET TO [facility] FOR CONSIDERATION. FACILITY WILL CALL US BACK.
--- NOTE | 2020-05-07 09:56 | NUR ---
THROUGHPUT RN::CALLED [facility] TO ASK IF THEY WOULD RECONSIDER PT FOR ADMISSION HER LIM IS NOW OUT AND A WOUND CARE PLAN IS NOW IN PLACE WITH WOUND CARE. THEY STATED THEY WOULD SPEAK TO THEIR SUP AND CALL US BACK.
[2020-05-07] MEDS ORDERED: OLANZAPINE 5 MG TABLET ONE (12:42)
--- NOTE | 2020-05-07 13:40 | NUR ---
PHARM CALLED FOR MED
--- NOTE | 2020-05-07 13:42 | NUR ---
ED DIET TRAY ORDERED
--- NOTE | 2020-05-07 13:54 | NUR ---
PT REPOSITIONED FOR COMFORT
[2020-05-07] MEDS: ESCITALOPRAM 10MG TABLET PO SCH (14:18)
--- NOTE | 2020-05-07 15:00 | NUR ---
PT CALM IN BED, REFUSING TO EAT, PT REPORTS THATA SHE FEEL SCARED AND THAT SHE IS GOING TO FALL. PT IN BED WITH SIDE RAILS UP X2, CALL LIGHT IN REACH.DEVANG SITTER OUTSIDE ROOM
--- NOTE | 2020-05-07 16:05 | NUR ---
PT WATCHING TV. PT HAS NOT HAD ANY FOOD. ROOM IS SAFE AND SECURE
--- NOTE | 2020-05-07 17:34 | NUR ---
PT CALM IN BED. NO REQUESTS AT THIS TIME.
--- NOTE | 2020-05-07 19:00 | NUR ---
REPORT FROM SHAYNE ASSUMED CARE OF PT
--- NOTE | 2020-05-07 19:04 | NUR ---
Gave report to Marysol Addison RN
--- NOTE | 2020-05-07 20:00 | NUR ---
PT IN NAD AWAKE IN BED WITH SITTER AT DOOR
--- NOTE | 2020-05-07 23:14 | NUR ---
PT IN NAD AT THIS TIME LAYING AWAKE IN BED, SITTER OUT SIDE DOOR ROOM SECURE FOOD OFFERED BUT REFUSED
--- NOTE | 2020-05-08 00:01 | NUR ---
PT IN NAD AWAKE IN BED WITH SITTER AT DOOR
--- NOTE | 2020-05-08 00:48 | NUR ---
pt has drank 4 cups of water and a carton of milk since 7 pm, pt has not slept, pt admits to smoking meth states friends bring it to her, pure wick in place draining urine
--- NOTE | 2020-05-08 02:00 | NUR ---
PT IN NAD AWAKE IN BED WITH SITTER AT DOOR
--- NOTE | 2020-05-08 03:45 | NUR ---
PT IN CONTINENT OF STOOL AT THIS TIME, CLEANED AND REPLACED PUREWICK, PT PLEASENT AND COOPERATIVE, PT TALKATIVE, ICE CHIPS GIVEN AT THIS TIME
--- NOTE | 2020-05-08 05:06 | NUR ---
PT IN NAD AWAKE IN BED WITH SITTER AT DOOR
--- NOTE | 2020-05-08 07:00 | NUR ---
REPORT RECIEVED FROM MAL RN, PT RESTING ON HOSPITAL BED AT THIS TIME, NAD NOTED
[2020-05-08] MEDS ORDERED: OLANZAPINE 5 MG TABLET ONE (08:33)
--- NOTE | 2020-05-08 08:48 | NUR ---
THROUGHPUT RN: UPDATES FAXED TO [facility], [facility], [facility], AND [facility].
--- NOTE | 2020-05-08 09:00 | NUR ---
PT GIVEN BREAKFAST TRAY, REFUSING TO EAT AT THIS TIME, PT STATES :"SHE NEEDS A SPRITE, I DONT THINK SHE IS HUNGRY:" ENCOURAGED PT TO EAT MEAL, PT GRABS A BIT OF EGGS AND EATS. PT DECLINES TURNING OR REPOSITION AT THIS TIME. VSS THIS AM, SI PRECAUTIONS IN PLACE
[2020-05-08] MEDS: ESCITALOPRAM 10MG TABLET PO SCH (09:02)
[2020-05-08] MEDS: OLANZAPINE 5 MG TABLET PO SCH (09:02)
--- NOTE | 2020-05-08 10:59 | NUR ---
PT ASSISTED WITH CHANGING OF GOWN AND BEDBATH. ROBOTIC TOY INVENTOR IN TO [place]INA PT. PT COOPERATIVE, STATES SHE IS HAVING SOME PAIN IN SACARL AREA. PER PSYCH ROBOTIC TOY INVENTOR PER PT DOES TAKE PAIN MEDICATIONS FOR CHRONIC WOUNDS. WILL CHECK WITH PT PHARMACY PER ROBOTIC TOY INVENTOR REQUEST.
--- NOTE | 2020-05-08 11:05 | NUR ---
THROUGHPUT RN: TERRANCE REFUSED PT.
--- NOTE | 2020-05-08 11:15 | NUR ---
DIAMANTE RN: CONSULTED W/ SW WHO STATES THERE IS NOT MUCH THAT CAN BE DONE EXCEPT FAX UPDATES TO [facility] THAT IS THE ONLY FACILITY THAT SHE CAN GO TO AT THIS TIME. UPDATES FAXED THIS AM.
--- NOTE | 2020-05-08 11:22 | NUR ---
THROUGHPUT RN: CALLED AND SPOKE W/ KARINA, HYDRAULIC PRESS TENDER AT [facility] WHO STATES PT IS 7TH ON THEIR LIST FOR ADMISSION.
--- NOTE | 2020-05-08 12:27 | NUR ---
THROUGHPUT RN: ATTEMPTED TO CALL INPATIENT RIPSAW GRADER AT [phone]. NO ANSWER. VOICEMAIL LEFT. WILL ATTEMPT TO CALL BACK AT 1300. Addendum: 05/08/20 at 1227 by BNICHOLS INPATIENT RIPSAW GRADER AT [facility]
--- NOTE | 2020-05-08 13:00 | NUR ---
LATE ENTRY: PT REFUSING TO ALLOW THIS RN TO PROVIDE WOUND CARE, WILL ATTEMPT AT LATER TIME
--- NOTE | 2020-05-08 13:15 | NUR ---
Spoke with admit sup and at this time @[facility] and they do not have the capibility to care for her. PT called for evaluation for patient per social workers request.
--- NOTE | 2020-05-08 14:47 | NUR ---
PT saw patient at this time, pt to continue to recieve care and assitance as needed. Pt to have bed pump to help with pressure redistribution.
--- NOTE | 2020-05-08 15:12 | NUR ---
PT NOT LEAVING GOWN ON, SHE CONTINUES REMOVE AND THROW ON THE GROUND, PURWICK REMOVED BY PT WELL AND THEN SHE URINATED IN BED, PT CLEANED AND NEW PURWICK REPLACED, PT COVERED WITH BLANKET PER REQUEST SHE NO LONGER WISHES TO WEAR A GOWN.
--- NOTE | 2020-05-08 16:23 | NUR ---
PT CONTINUES TO REMOVE PURWICK AND THROW IT ON THE GROUND, PT THEN YELLS AT THIS RN TO CLEAN HER UP AND REPLACE THE PURWICK. PT ALSO REFUSING GOWN, WILL ATTEMPT AT LATER TIME TO DRESS AND CLEAN PT THOUGHROUGHY. PT TO BE MOVED TO SPECIALTY BED ONCE ARRIVES
[2020-05-08 17:13] LABS: BASOPHILS % (AUTO) 2 % (0-1); EOSINOPHILS % (AUTO) 3 % (1-7); LYMPHOCYTES % (AUTO) 17 % (22-44); MD MORPH REVIEW ONLY; MEAN CORPUSCULAR HEMOGLOBIN 21.7 pg (27.0-34.8); MEAN CORPUSCULAR HGB CONC 31.8 g/dL (32.4-35.8); MEAN CORPUSCULAR VOLUME 68.4 fL (80-100); MEAN PLATELET VOLUME 8.7 fL (7.4-10.4); MONOCYTES # (AUTO) 0.41 x10^3/uL (0.2-0.8); MONOCYTES % (AUTO) 7 % (2-9); NEUTROPHILS # (AUTO) 4.03 x10^3/uL (1.8-6.8); NEUTROPHILS % (AUTO) 70 % (42-75); PLATELET COUNT 215 x10^3/uL (130-400); RED BLOOD COUNT 6.54 x10^6/uL (3.82-5.3)
--- NOTE | 2020-05-08 17:14 | NUR ---
PT TO SPECIALTY BED THIS TIME.
[2020-05-08 17:16] LABS: ANION GAP 8 mmol/L (5-15); CALCIUM 9.1 mg/dL (8.5-10.1); CHLORIDE 112 mmol/L (98-107); CREATININE 0.69 mg/dL (0.55-1.02)
[2020-05-08 17:53] LABS: ANISOCYTOSIS 1+; MICROCYTOSIS 1+; OVALOCYTES 1+
[2020-05-08 17:54] LABS: <PLATELET ESTIMATE> ADEQUATE; <PLT MORPHOLOGY> NORMAL PLT MORPH
[2020-05-08] MEDS ORDERED: POTASSIUM CHLORIDE 40 MEQ in SODIUM CHLORIDE 0.9% 500 ML IV ONE (18:00)
--- NOTE | 2020-05-08 18:19 | NUR ---
PIV INITIATED, PT TO BE MEDICATED PER MAR FOR LOW K+. DELAY IN CARE MEDICATION ARRIVED BROKEN IN TUBE STATION, PHARM CALLED FOR REPLACEMENT MEDICATION
--- NOTE | 2020-05-08 18:21 | NUR ---
PT PROVIDED WITH MEAL TRAY, PT REFUSED TO EAT AT THIS TIME, STATES SHE WILL TRY SOME FOOD LATER
[2020-05-08] MEDS ORDERED: POTASSIUM CHLORIDE 20 MEQ TAB.ER.PRT PO ONE ×2 (19:30→21:30)
--- NOTE | 2020-05-08 19:40 | NUR ---
1900: FIRST CONTACT WITH PT, PT SUPINE IN BED WATCHING TV. A/OX3 HAS DINNER AT BEDSIDE. CALL MARIE IN REACH. VSS, RR EQUAL AND UNLABORED. INFORMED PT ON PLAN OF CARE, PT IN AGREEMENT. WILL CONTINUE TO MONITOR.
--- NOTE | 2020-05-08 20:09 | NUR ---
PT PLACED ON PRINT INSPECTOR FOR POTASSIUM INF. VSS, CALL MARIE IN REACH, SITTER OUTSIDE DOOR IN LINE OF SITE. AIDET PROVIDED.
[2020-05-08 20:48] LABS: ANION GAP 7 mmol/L (5-15); CALCIUM 8.8 mg/dL (8.5-10.1); CHLORIDE 110 mmol/L (98-107)
--- NOTE | 2020-05-08 21:00 | NUR ---
NO CHANGE IN ASSESSMENT. SAFETY CHECKS UPDATED. SITTER IN LINE OF SITE.
--- NOTE | 2020-05-08 21:09 | NUR ---
Note jose juan in [facility] - 05/08/20 at 2110 by [id number] ATTEMPTED REPORT, FLOOR RN IN ANOTHER PT'S ROOM. AWAITING CALL BACK.
[2020-05-08] MEDS ORDERED: CEFDINIR 300 MG CAPSULE ONE (21:15)
[2020-05-08] MEDS ORDERED: POTASSIUM CHLORIDE 20 MEQ TAB.ER.PRT ONE (21:15)
[2020-05-08] MEDS: CEFDINIR 300 MG CAPSULE PO SCH (21:18)
--- NOTE | 2020-05-08 22:40 | NUR ---
2215: NO CHANGE IN ASSESSMENT, WATCHING TV. REMAINS NSR, NO ECTOPY. SITTER OUTSIDE ROOM. SAFETY CHECKS UPDATED. AIDET PROVIDED.
--- NOTE | 2020-05-09 01:11 | NUR ---
2330: PT WITH LARGE, UNFORMED BROWN BM INCONTINENT, URINARY INC. PT CLEANED UP, EMMA GAONA, EMMA CALLEJAS. DRINKING WATER.
--- NOTE | 2020-05-09 01:43 | NUR ---
NO CHANGE IN ASSESSMENT, ALL NEEDS MET. SITTER IN LINE OF SITE.
--- NOTE | 2020-05-09 02:48 | NUR ---
PT SLEEPING, VSS, SITTER IN LINE OF SITE. ROOM SAFETY UPDATED. WILL CONTINUE TO MONITOR.
--- NOTE | 2020-05-09 03:39 | NUR ---
VS UPDATED, STABLE. PT FOLLOWS COMMANDS. REMAINS COOPERATIVE. SLEEPING INTERMITTENTLY. ROOM SAFETY UPDATED. PO FLUIDS. SITTER IN LINE OF SITE WILL CONTINUE MONITORING.
--- NOTE | 2020-05-09 03:44 | NUR ---
PT INC URINE AND SOME STOOL, CLEANED UP. CHUCKS CHANGED. NEW LINEN
--- NOTE | 2020-05-09 05:33 | NUR ---
PT SLEEPING, RR EQUAL AND UNLABORED. AROUSES WITH VERBAL, LINENS CLEANED, OFFERED WATER. SITTER IN LINE OF SITE, ROOM SAFETY UPDATED. WILL CONTINUE TO MONITOR.
--- NOTE | 2020-05-09 06:08 | NUR ---
PT AWAKE, DRESSING CHANGE TO SACRAL PRESSURE ULCER. TEODORO CARE PT WITH NON BLANCHING REDNESS, OINTMENT APPLIED. ENCOURAGED PT TO STAY ON LEFT OR RIGHT LATERAL SIDE TO RELIEVE PRESSURE FROM ULCER, SHE TOLD ME NO. SHE ASKS FOR MORE WATER AND TO LEAVE HER COOKIE AT THE SIDE OF THE BED. SITTER IN LINE OF SITE, PLAN OF CARE IS FOR A PT CARE TEAM TO MEET TODAY TO DISCUSS PLAN.
--- NOTE | 2020-05-09 06:52 | NUR ---
REPORT TO DINO STEELE
--- NOTE | 2020-05-09 06:56 | NUR ---
REPORT FROM PAUL. PT SLEEPING.
[2020-05-09] MEDS ORDERED: CEFDINIR 300 MG CAPSULE ONE (07:50)
[2020-05-09] MEDS ORDERED: OLANZAPINE 5 MG TABLET ONE (07:50)
[2020-05-09] MEDS: CEFDINIR 300 MG CAPSULE PO SCH (08:19)
[2020-05-09] MEDS: OLANZAPINE 5 MG TABLET PO SCH (08:19)
[2020-05-09] MEDS: ESCITALOPRAM 10MG TABLET PO SCH (08:19)
--- NOTE | 2020-05-09 08:51 | NUR ---
THROUGHPUT RN: IVETTE NORIEGA FROM [facility] DOWN TO ASSESS PT. STATES SHE WILL SPEAK WITH HER TEAM ABOUT POSSIBLE OPTIONS. PT IS SCHEDULED FOR A MEETING AT 1200 TODAY.
[2020-05-09 08:52] VITALS: BP 118/67
--- NOTE | 2020-05-09 08:53 | NUR ---
PT GIVEN MEAL TRAY. ABLE TO FEED SELF. MEDICATED PER ORDERS. VSS. ABLE TO MOVE AROUND IN BED
--- NOTE | 2020-05-09 09:33 | NUR ---
PT RESTING, PT LABILE W EMOTIONS. TEARFUL AT TIMES.
--- NOTE | 2020-05-09 10:29 | NUR ---
TO BE DC W [facility] HOME. CLEARED TO BE DC HOME
--- NOTE | 2020-05-09 10:42 | NUR ---
DIAMANTE RN: SPOKE Олег/ KRISTINE AT [facility] FOR APPROVAL FOR [facility] TRANSPORT.
--- NOTE | 2020-05-09 10:51 | NUR ---
THROUGHPUT RN: BANDAR AT [facility] NOTIFIED OF NEED FOR [facility]. WILL PUT PT IN "WILL CALL" UNTIL M[facility]. PROVIDES [facility] W/ APPROVAL FOR TRANSPORT.
--- NOTE | 2020-05-09 11:50 | NUR ---
THROUGHPUT RN: CALLED AND SPOKE W/ Mary WHO STATES THE STRETCHER DEPARTMENT HAS PT'S INFORMATION.
--- NOTE | 2020-05-09 11:57 | NUR ---
PT RESTING, WATCHING TV. REPOSITIONED AND CLEANED
--- NOTE | 2020-05-09 12:39 | NUR ---
THROUGHPUT RN: CALLED AND SPOKE W/ MAURO AT [facility] WHO STATES THERE IS NO UPDATE FROM THE STRETCHER TEAM. CALLED AND SPOKE W/ BANDAR AT [facility] WHO STATES THEY NEED THE AUTHORIZATION FROM .T.M. SINCE PT IS BEING SENT HOME.
--- NOTE | 2020-05-09 13:19 | NUR ---
PT REPOSITION, SACRAL BANDAGE CHANGED. PADS CHANGED
--- NOTE | 2020-05-09 13:52 | NUR ---
DPatient/Caregiver given discharge instructions and they have confirmed that they understand the instructions. Patient babatunde patel
[2020-05-10] MEDS ORDERED: DULOXETINE 30 MG CAPSULE.DR PO SCH (09:00)
== END 2020-05-09 13:54 | disposition home or self-care (01) ==
LOC: ED 05:31
DX: F32.1 Major depressive disorder, single episode, moderate (principal); R45.851 Suicidal ideations; I10 Essential (primary) hypertension
CPT/HCPCS: 36415; 80048; 80053; 80307; 81001; 84132; 84443; 85025; 87077; 87086; 87106; 87186; 96365; 96366; 97162; 99285; J3480; 99284

== ENCOUNTER 2020-08-08 17:35 | Emergency (ER) | payer MEDICAID ==
[~2020-08-08] VITALS: Ht 167.6 cm; Wt 70.0 kg
--- NOTE | 2020-08-08 17:45 | NUR ---
PT DIONISIO. PER EMS THEY WERE CALLED BY PT'S FRIEND FOR "SEIZURE" BUT PT REPORTS SHE IS HERE TO GET MORE PAIN MEDS FOR ULCER ON SACRUM. PT RESTING IN [facility], MONITORING IN PLACE, OZZY AT THIS TIME. WILL CONTINUE TO MONITOR.
--- NOTE | 2020-08-08 18:23 | NUR ---
PT TO XRAY VIA DRE WITH Hall.
[2020-08-08] MEDS ORDERED: HYDROcodone/APAP 5/325 TABLET PO ONE (18:30)
[2020-08-08] MEDS ORDERED: HYDROcodone/APAP 5/325 TABLET ONE (18:40)
--- NOTE | 2020-08-08 18:51 | NUR ---
PT RESTING IN [facility], MEDICATED PER EMAR, MONITORING IN PLACE. PT REPORTS NO NEEDS AT THIS TIME.
--- NOTE | 2020-08-08 19:02 | NUR ---
REPORT GIVEN TO IVETTE FERNANDZE.
--- NOTE | 2020-08-08 19:11 | NUR ---
BEDSIDE REPORT FROM ALVIN STEELE, PT CARE TRASNFERRED AT THIS TIME. PT LAY ON DRE, APPEARS COMFORTABLE, NAD, DENIES ADDITIONAL QUESTIONS AT THIS TIME. VSS. WCTM. PT UP FOR RECHECK
--- NOTE | 2020-08-08 20:47 | NUR ---
PT RESTING ON IVETTE ERICKSON ATTEMPTING TO ROUSE PT TO FIND WHERE SHE WANTS TO BE DC'D TO. PT IGNORING RN, PT RESPONDS TO PAINFUL STIMULI AND OPENS EYES AND RESPONDS WHEN ASKED QUESTIONS REPEATEDLY. STATES "I USE A WHEELCHAIR AND I CANNOT WALK SO I CANT LEAVE". CHARGE AND ONLINE EDUCATION MANAGER RN AWARE. WCTM.
--- NOTE | 2020-08-08 22:50 | NUR ---
ATTTEMPTING TO [facility], [facility] NO ANSWERING AT THIS TIME
--- NOTE | 2020-08-08 22:54 | NUR ---
PT RESTING ON RAFIZEE, ZAN, NO CHANGE IN CONDITION, APPEARS COMFORTABLE, ATTEMPTING TO COORDINATE RIDE TO DC PT. KENYATTA ESPOSITO VERIFIED PT IS READY TO DC. WCTM.
[2020-08-08] MEDS ORDERED: IBUPROFEN 600 MG TABLET ONE (23:55)
[2020-08-09] MEDS ORDERED: IBUPROFEN 200 MG TABLET PO ONE
--- NOTE | 2020-08-09 00:06 | NUR ---
Abby AT [facility] STATED SHE WAS ARRANGING TRANSPORT FOR PATIENT, AWAITING CALL BACK FOR ARTIFICIAL BREEDING TECHNICIAN ETA
--- NOTE | 2020-08-09 00:13 | NUR ---
PT MEDICATED PER MAR FOR PAIN, NAD, APPEARS COMFORTABLE, WCTM. WAITING FOR RIDE.
[2020-08-09] MEDS ORDERED: ONDANSETRON ODT 4 MG ONE (00:58)
[2020-08-09] MEDS ORDERED: ONDANSETRON ODT 4 MG PO ONE (01:00)
--- NOTE | 2020-08-09 01:14 | NUR ---
PT MEDICATED PER MAR FOR NAUSEA PER REQUEST. NAD, DENIES ADDITIONAL NEEDS, WCTM.
--- NOTE | 2020-08-09 01:36 | NUR ---
PT LINENS AND BRIEF CHANGED, NEW BANDAGES PLACED ON SACRUM SORE. PT NAD, DENIES ADDITIONAL NEEDS AT THIS TIME. WCTM. WAITING FOR [facility] TRANSPORT.
[2020-08-09 03:00] VITALS: BP 118/76
--- NOTE | 2020-08-09 04:23 | NUR ---
report to amanda at . Patient given discharge instructions and they have confirmed that they understand the instructions. Patient nonambulatory per baseline. provided snacks, hartman emptied, new brief applied, sacral wound dressed appropriately, rn provided new slide sheet for pt due to the slide sheet the pt came in on having bowel contents covering it. pt nad, denies additional questiosn or needs at this time.
== END 2020-08-09 04:24 | disposition home or self-care (01) ==
LOC: ED 18:05
DX: G89.29 Other chronic pain (principal); M25.551 Pain in right hip; M54.5 Low back pain; I10 Essential (primary) hypertension; M19.90 Unspecified osteoarthritis, unspecified site
CPT/HCPCS: 73502; 99285; Q0162

== ENCOUNTER 2020-08-24 14:28 | Emergency (ER) | payer MEDICAID ==
[~2020-08-24] VITALS: Ht 167.6 cm; Wt 70.0 kg
[2020-08-24] MEDS ORDERED: ACETAMINOPHEN 325 MG TABLET PO ONE (15:30)
--- NOTE | 2020-08-24 16:05 | NUR ---
EXISTING INDWELLING LIM REMOVED. NEW INDWELLING LIM INSERTED, PT TOLERATED WELL. URINE SAMPLE COLLECTED AND TAKEN TO LAB.
[2020-08-24] MEDS ORDERED: ACETAMINOPHEN 325 MG TABLET ONE (16:08)
[2020-08-24 16:10] VITALS: BP 117/83
[2020-08-24 16:23] LABS: MICROSCOPIC INDICATED
--- NOTE | 2020-08-24 17:28 | NUR ---
PT DISCHARGED. AWAITING [facility] TRANSPORT HOME.
--- NOTE | 2020-08-24 17:39 | NUR ---
Break RN note: Pt resting in bed, NADN. Pt provided water per request. Awaiting [facility] transport home.
--- NOTE | 2020-08-24 18:05 | NUR ---
REPORT GIVEN TO [facility]. PT TRANSPORT HOME.
== END 2020-08-24 18:06 | disposition home or self-care (01) ==
LOC: ED 14:47
DX: N30.00 Acute cystitis without hematuria (principal); I10 Essential (primary) hypertension
CPT/HCPCS: 51702; 81001; 87077; 87086; 87186; 99284

== ENCOUNTER 2021-04-24 16:07 | Inpatient (IN) | payer MEDICAID ==
[~2021-04-24] VITALS: Ht 170.2 cm; Wt 79.3 kg
[2021-04-24] MEDS: BUSPIRONE 5 MG TABLET PO SCH ×3 (16:00→22:52)
[~2021-04-24 16:07] MED LIST changes: -ASPI-515 PO; +ASPI-963 PO; +CARI-389 PO; -CARI350T14 PO; -ESCI10TA PO; +ESCI10TA97 PO; +HYDR-2214 PO; -HYDR-3240 PO; +METH-640 PO; -METH750T2 PO; -OXYC5TAB3 PO; +OXYC5TAB98 PO; +SULF-23 PO; -SULF1TAB24 PO
--- NOTE | 2021-04-24 17:24 | NUR ---
DIONISIO FOR [facility]TT. PER EMS REPORT PT WAS DISCHARGED FROM [facility] 2 DAYS AGO FOR UTI AND HAD LIM PLACED. CLOTHESPIN DRIER OPERATOR LIM BAG STATES LIM WAS INSERTED 04/06/21. PT HAS BEEN UNABLE TO CARE FOR SELF AT HOME. 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 PT IS STATING "MY WHOLE BODY IS MADE OF METAL" AND IS REFUSING CLEANING WITH WATER DUE TO FEAR OF BEING ELECTROCUTED. PT ARRIVES WITH STRONG FECAL SMELL AND DISCOVERED TO HAVE VERY LARGE BM THAT COVERS PT ENTIRE LOWER BACK AND TEODORO AREA WITH SOME ON ARMS, HANDS, LEGS, AND FEET. PT VERY HESITATE TO LET STAFF CLEAN HER. LIM ALSO COVERED IN FECES, VERBAL ORDER FROM DR SAUNDERS TO REMOVE LIM. FECAL MATTER NOTED TO COAT LIM ALL THE WAY TO TIP. URINE GREEN/BROWN IN BAG. PT ANSWERS ORIENTION QUESTIONS APPROPIATELY AND ALSO HAS FEAR OVER MOVING IN BED. WOUNDS NOTED TO LOWER AMY, BUTTOCK (REDNESS), AND HEELS.
[2021-04-24 17:39] LABS: BASOPHILS % (AUTO) 1 % (0-1); EOSINOPHILS % (AUTO) 2 % (1-7); LYMPHOCYTES % (AUTO) 13 % (22-44); MEAN CORPUSCULAR HEMOGLOBIN 26.7 pg (27.0-34.8); MEAN CORPUSCULAR HGB CONC 33.2 g/dL (32.4-35.8); MEAN PLATELET VOLUME 8.5 fL (7.4-10.4); MONOCYTES % (AUTO) 5 % (2-9); NEUTROPHILS % (AUTO) 79 % (42-75); PLATELET COUNT 221 x10^3/uL (130-400); RED BLOOD COUNT 4.79 x10^6/uL (3.82-5.3); RED CELL DISTRIBUTION WIDTH 17.2 % (9.6-15.2)
[2021-04-24 17:47] LABS: ALANINE AMINOTRANSFERASE 23 U/L (12-78); ALBUMIN 3.5 g/dL (3.4-5.0); ANION GAP 10 mmol/L (5-15); CALCIUM 9.2 mg/dL (8.5-10.1); CHLORIDE 108 mmol/L (98-107); CREATININE 0.47 mg/dL (0.55-1.02)
[2021-04-24 17:49] LABS: ALKALINE PHOSPHATASE 124 U/L (45-117); BILIRUBIN,TOTAL 0.5 mg/dL (0.2-1.0); TOTAL PROTEIN 7.5 g/dL (6.4-8.2)
[2021-04-24] MEDS ORDERED: ONDANSETRON 2MG/ML, 2ML ONE (18:01)
[2021-04-24] MEDS ORDERED: FAMOTIDINE 20 MG/2 ML ONE (18:09)
[2021-04-24] MEDS ORDERED: FAMOTIDINE 20 MG/2 ML IVPush ONE (18:30)
[2021-04-24] MEDS ORDERED: ONDANSETRON 2MG/ML, 2ML IVPush ONE (18:30)
[2021-04-24] MEDS ORDERED: SODIUM CHLORIDE 0.9% 1,000ML IVBOLUS ONE (18:30)
[2021-04-24] MEDS ORDERED: SODIUM CHLORIDE FLUSH 10ML SYR IVF ONE (18:30)
[2021-04-24] MEDS ORDERED: SODIUM CHLORIDE FLUSH 10ML SYR IVF PRN (20:00)
[2021-04-24] MEDS ORDERED: SODIUM CHLORIDE 0.9% 1,000 ML IV ONE (20:00)
--- NOTE | 2021-04-24 20:10 | NUR ---
pt hard iv stick. multiple rn for attempts. Task RN able to place 20 piv in left chest.
[2021-04-24] MEDS ORDERED: CELE200C PO (20:14)
[2021-04-24] MEDS ORDERED: DULO30CA2 PO (20:14)
[2021-04-24] MEDS ORDERED: BUSP5TAB2 PO (20:14)
--- NOTE | 2021-04-24 20:15 | NUR ---
[facility] AT BEDSIDE
[2021-04-24] MEDS ORDERED: LIDODERM 5% PATCH TD PRN (21:00)
[2021-04-24] MEDS ORDERED: DOCUSATE 100 MG CAPSULE PO PRN (21:00)
[2021-04-24] MEDS ORDERED: ACETAMINOPHEN 325 MG TABLET PO PRN (21:00)
[2021-04-24 21:15] LABS: MICROSCOPIC INDICATED
--- NOTE | 2021-04-24 21:34 | NUR ---
REPORT TO LITZY STEELE
[2021-04-24 22:18] VITALS: BP 121/67
[2021-04-24] MEDS: OXYcodone IR 5MG TABLET PO PRN (22:53)
[2021-04-24] MEDS: ENOXAPARIN 40 MG/0.4 ML SQ SCH (22:54)
[2021-04-25 01:15] VITALS: BP 133/80
[2021-04-25] MEDS: PROCHLORPERAZINE 10MG TABLET PO PRN ×3 (01:49→20:32)
[2021-04-25 02:59] LABS: AMPHETAMINE SCREEN, URINE Positive (Negative); BARBITURATE SCREEN, URINE Negative (Negative); BENZODIAZEPINE SCREEN, URINE Negative (Negative); CANNABINOID SCREEN, URINE Positive (Negative); COCAINE SCREEN, URINE Negative (Negative); METHADONE SCREEN, URINE Negative (Negative); OPIATE SCREEN, URINE Negative (Negative)
[2021-04-25] MEDS: OXYcodone IR 5MG TABLET PO PRN ×2 (05:02→16:58)
[2021-04-25 06:07] LABS: BASOPHILS % (AUTO) 1 % (0-1); EOSINOPHILS % (AUTO) 4 % (1-7); LYMPHOCYTES % (AUTO) 18 % (22-44); MEAN CORPUSCULAR HEMOGLOBIN 26.3 pg (27.0-34.8); MEAN CORPUSCULAR HGB CONC 32.5 g/dL (32.4-35.8); MEAN PLATELET VOLUME 8.3 fL (7.4-10.4); MONOCYTES % (AUTO) 7 % (2-9); NEUTROPHILS % (AUTO) 70 % (42-75); PLATELET COUNT 208 x10^3/uL (130-400)
[2021-04-25 06:09] LABS: ANION GAP 6 mmol/L (5-15); CALCIUM 8.9 mg/dL (8.5-10.1); CHLORIDE 113 mmol/L (98-107); CREATININE 0.47 mg/dL (0.55-1.02)
[2021-04-25 08:41] VITALS: BP 118/79
[2021-04-25] MEDS: BUSPIRONE 5 MG TABLET PO SCH ×3 (08:46→21:28)
[2021-04-25] MEDS: DULOXETINE 30 MG CAPSULE.DR PO SCH (08:47)
[2021-04-25 14:29] VITALS: BP 130/78
[2021-04-25] MEDS: MELATONIN 5 MG TABLET PO PRN (21:28)
[2021-04-25] MEDS: ENOXAPARIN 40 MG/0.4 ML SQ SCH (21:29)
[2021-04-25 21:31] VITALS: BP 111/73
[2021-04-26 01:32] VITALS: BP 106/59
[2021-04-26] MEDS: OXYcodone IR 5MG TABLET PO PRN ×3 (05:19→19:27)
[2021-04-26 08:00] VITALS: BP 110/62
[2021-04-26] MEDS: DULOXETINE 30 MG CAPSULE.DR PO SCH (08:45)
[2021-04-26] MEDS: BUSPIRONE 5 MG TABLET PO SCH ×3 (08:45→22:59)
[2021-04-26 14:00] VITALS: BP 110/62
[2021-04-26 19:20] VITALS: BP 99/67
[2021-04-26] MEDS: ENOXAPARIN 40 MG/0.4 ML SQ SCH (21:09)
[2021-04-26] MEDS: MELATONIN 5 MG TABLET PO PRN (22:59)
[2021-04-27 01:49] VITALS: BP 108/59
[2021-04-27] MEDS: OXYcodone IR 5MG TABLET PO PRN ×3 (03:51→19:51)
[2021-04-27 06:56] VITALS: BP 101/75
[2021-04-27] MEDS ORDERED: LEVOFLOXACIN 750 MG TABLET PO SCH (09:00)
[2021-04-27] MEDS: DULOXETINE 30 MG CAPSULE.DR PO SCH (09:30)
[2021-04-27] MEDS: BUSPIRONE 5 MG TABLET PO SCH ×2 (09:34→16:43)
[2021-04-27] MEDS ORDERED: LEVO750T6 PO (10:41)
[2021-04-27 13:00] VITALS: BP 103/65
[2021-04-27 18:42] VITALS: BP 103/59
== END 2021-04-27 21:17 | disposition home or self-care (01) | DRG 421 ==
LOC: ED 18:25 → EDIP 20:05 → 3N 21:50
PROVIDERS: ADMIT Internal Medicine; ATTEND Family Medicine
PROC: 0T9B70Z Drainage of Bladder with Drainage Device, Via Natural or Artificial Opening (ICD-10-PCS; principal; 2021-04-24)
DX: R62.7 Adult failure to thrive (principal); L89.321 Pressure ulcer of left buttock, stage 1; R53.2 Functional quadriplegia; F29 Unspecified psychosis not due to a substance or known physiological condition; F15.10 Other stimulant abuse, uncomplicated; G89.29 Other chronic pain; I10 Essential (primary) hypertension; M06.9 Rheumatoid arthritis, unspecified; G83.10 Monoplegia of lower limb affecting unspecified side; M79.7 Fibromyalgia; N31.9 Neuromuscular dysfunction of bladder, unspecified; M51.16 Intervertebral disc disorders with radiculopathy, lumbar region; Z91.14 Patient's other noncompliance with medication regimen; Z98.1 Arthrodesis status; Z68.27 Body mass index [BMI] 27.0-27.9, adult; Z88.0 Allergy status to penicillin; Z88.8 Allergy status to other drugs, medicaments and biological substances
CPT/HCPCS: 36415; 72110; 96361; 96372; 96374; 96375; 99285; Q0164; 71045; 80048; 80053; 80307; 81001; 83690; 85025; 87077; 87086; 87184; 87186; G0378; J1650; J2405; J7030